=== PATIENT | male | born 1950 | race Caucasian/White ===

== ENCOUNTER → 2020-09-08 10:32 | Outpatient (CLI) | payer MEDICARE, OTHER, SELFPAY ==
[2020-09-08 15:49] LABS: Coronavirus 19 IgG Antibody Negative (Negative); Coronavirus 19 IgM Antibody Negative (Negative)
== END ==
PROVIDERS: Visit Provider Ophthalmology
DX: Z01.818 Encounter for other preprocedural examination (principal); Z03.818 Encounter for observation for suspected exposure to other biological agents ruled out; H25.11 Age-related nuclear cataract, right eye
CPT/HCPCS: 36415; 86328

== ENCOUNTER 2020-09-09 06:49 | Day surgery (SDC) | payer MEDICARE, OTHER, SELFPAY ==
[2020-09-03 10:33] VITALS: BMI 19.0
[2020-09-09 07:21] VITALS: BP 143/85; PULSE 88; RESP 16; TEMP 36.5; O2SAT 96
[2020-09-09 08:38] VITALS: BP 125/70; PULSE 65; RESP 16; O2SAT 93
[2020-09-09 08:43] VITALS: BP 111/64; PULSE 65; RESP 16; O2SAT 94
[2020-09-09 08:48] VITALS: BP 116/67; PULSE 65; RESP 16; O2SAT 94
[2020-09-09 08:53] VITALS: BP 126/70; PULSE 64; RESP 16; O2SAT 94
[2020-09-09 08:58] VITALS: BP 132/77; PULSE 65; RESP 18; TEMP 36.6; O2SAT 98
== END 2020-09-09 09:09 | disposition home or self-care (01) ==
LOC: OR 06:52
PROVIDERS: PCP Internal Medicine; Visit Provider Ophthalmology
DX: H25.813 Combined forms of age-related cataract, bilateral (principal); H02.839 Dermatochalasis of unspecified eye, unspecified eyelid; E11.9 Type 2 diabetes mellitus without complications
CPT/HCPCS: 66984; V2632

== ENCOUNTER → 2020-10-13 07:59 | Outpatient (CLI) | payer MEDICARE, OTHER, SELFPAY ==
[2020-10-13 09:27] LABS: Coronavirus 19 IgG Antibody Negative (Negative); Coronavirus 19 IgM Antibody Negative (Negative)
== END ==
PROVIDERS: Visit Provider Ophthalmology
DX: Z01.812 Encounter for preprocedural laboratory examination (principal); Z11.52 Encounter for screening for COVID-19; H25.12 Age-related nuclear cataract, left eye
CPT/HCPCS: 36415; 86328

== ENCOUNTER 2020-10-14 06:50 | Day surgery (SDC) | payer MEDICARE, OTHER, SELFPAY ==
[2020-10-14] VITALS (7 sets, daily range): BP systolic 132–154; BP diastolic 67–95; PULSE 56–68; RESP 16–22; TEMP 36.4–36.5; O2SAT 97–99; BMI 19.6
== END 2020-10-14 09:43 | disposition home or self-care (01) ==
PROVIDERS: PCP Internal Medicine; Visit Provider Ophthalmology
DX: H25.813 Combined forms of age-related cataract, bilateral (principal); H02.839 Dermatochalasis of unspecified eye, unspecified eyelid; H35.30 Unspecified macular degeneration; E11.9 Type 2 diabetes mellitus without complications
CPT/HCPCS: 66984; V2632

== ENCOUNTER → 2021-01-19 15:41 | Outpatient (CLI) | payer MEDICARE, OTHER, SELFPAY ==
--- NOTE | 2021-01-19 16:22 | ECG_ITS ---
APPROVED REPORT Exam: Resting ECG HR:78 bpm ECG Measurements Heart Rate 78 AXES MA 162 P 71 QRSd 144 QRS 223 QT 408 T 63 QTc 465 Conclusion Normal sinus rhythm Indeterminate axis Right bundle branch block Abnormal ECG Electronically signed by : Josh Garcia, 01/19/2021 19:01:07
[2021-01-19 16:33] LABS: Basophils # 0.1 K/mm3 (0-0.2); Basophils % 0.5 % (0.1-2.0); Eosinophils # 0.3 K/mm3 (0.0-0.4); Eosinophils % 1.9 % (0.1-12.0); Hematocrit 33.3 % (42.0-52.0); Hemoglobin 10.9 g/dL (14.1-18.0); Lymphocytes # 2.6 K/mm3 (0.7-4.5); Lymphocytes % 17.5 % (10-50); Mean Corpuscular HGB Conc 32.7 g/dL (31.8-35.4); Mean Corpuscular Hemoglobin 27.3 pg (27.0-31.2); Mean Corpuscular Volume 83.5 fl (80-94); Mean Platelet Volume 7.4 fl (7.4-10.4); Monocytes % 6.5 % (1.7-9.3); Neutrophils # 10.7 K/mm3 (1.8-7.8); Neutrophils % 73.5 % (37.0-80.0); Platelet Count 375 K/mm3 (142-424); Red Blood Count 3.99 M/mm3 (4.60-6.20); Red Cell Distribution Width 15.6 % (11.5-17.5); White Blood Count 14.5 K/mm3 (4.8-10.8)
[2021-01-19 17:00] LABS: Chloride 99 mmol/L (98-107); Potassium 3.6 mmoL/L (3.5-5.1); Sodium 134 mmol/L (136-145)
[2021-01-19 17:03] LABS: Anion Gap 10.6 mEq/L (5-15); Blood Urea Nitrogen 10 mg/dl (9-20); Carbon Dioxide 28 mmol/L (22.0-30.0); Estimated Glomerular Filt Rate 133 ml/min (>60); GFR (African American) 161 ML/MIN (>60); Glucose 95 mg/dl (74-100)
[2021-01-19 17:16] LABS: Coronavirus 19 IgG Antibody Negative (Negative); Coronavirus 19 IgM Antibody Negative (Negative)
== END ==
PROVIDERS: Visit Provider Otolaryngology
DX: Z01.812 Encounter for preprocedural laboratory examination (principal); Z20.822 Contact with and (suspected) exposure to COVID-19; C44.40 Unspecified malignant neoplasm of skin of scalp and neck
CPT/HCPCS: 36415; 80048; 85025; 86328; 93005

== ENCOUNTER 2021-01-21 06:08 | Day surgery (SDC) | payer MEDICARE, OTHER, SELFPAY ==
[2021-01-20 10:41] VITALS: BMI 19.6
[2021-01-21 06:19] VITALS: BP 152/78; PULSE 81; RESP 18; TEMP 36.4; O2SAT 95
--- NOTE | 2021-01-21 07:08 | HMH.ANESCL ---
[facility] Anesthesia Checklist - Patient Identification Patient Identification: Arm Band - Structural Data Admitted From: Home Planned Operative Procedure/s: Excision left neck lesion Consent for Planned Operative Procedure(s) Verified: Yes Verified Documents: Surgical Consent, History and Physical - NPO Status Verified Time NPO: 00:00 - Additional verifications Anesthesia Reactions: No Hx Blood Transfusions: No Blood Transfusion Reaction: No - Airway Assessment C-Spine Mobility Assessed: Yes TMJ Mobility Assessed: Yes Dentition: Good Dentition - Neurological Assessment Level of Consciousness: Awake, Alert - Anesthesia Plan Anesthesia Risk discussed: Yes ASA Class: II Anesthesia Type: MAC [facility] History I have reviewed the patient's past medical history: Yes Medical History: Reports:: Cancer Denies:: Diabetes Mellitus Type 1, Diabetes Mellitus Type 2, Internal Pacemaker, MRSA, Seizures *Have you ever received a pneumonia vaccine?: No *Have you received a flu vaccine this season?: No Other Medical History: Denies: Blood Transfusion Reaction Anesthesia experience/problems:: None Laterality Cases: Left: Cataract Other Surgeries: Yes: Other. No: Pacemaker Amputation: No Fractures: No - *Social History Last grade of school completed: High school graduate Smoking Status: Current every day smoker Tobacco Type: cigarettes # Packs/Day (cigarettes): 1 Alcohol Intake: never Alcohol Intake Frequency:: a few times a month Substance Use Type: denies use *Occupational Status:: retired Housing: house Household Members: none *Travel in the last 8 weeks: None Family Hx:: Hypertension
[2021-01-21 08:25] VITALS: BP 114/81; PULSE 76; RESP 16; TEMP 36.2; O2SAT 97
[2021-01-21 08:35] VITALS: BP 130/60; PULSE 76; RESP 16; TEMP 36.2; O2SAT 97
--- NOTE | 2021-01-21 08:39 | HMH.OPNOTE ---
Date of procedure: 01/21/21 Pre-op Diagnosis:: 1. Non-Healing ulcerated lesion left upper neck measuring 7 cm present for at least 6 months Post-op Diagnosis:: same Procedure performed:: Excision of nonhealing lesion left upper neck 7 cm in length with tissue rearrangement geometric plastic repair Surgeon:: Ming Adan MD LAWN CARE WORKER:: Other (Cece) Anesthesia: MAC Estimated blood loss (mL): 9 Operative findings:: same Operative note:: With the patient under some sedation the left neck was prepped and draped, the perilesional area was infiltrated with a total of 6 cc of 2% lidocaine with epi the eyes were protected with Steri-Strips.. The lesion had been present for at least 6 months and the upper part of the lesion was ulcerated. The lesion was marked out and measured 3 x 7 cm in length. The blair out was incised and the lesion was fully mobilized it was from the sternomastoid muscle and removed in entirety. It was submitted for frozen section analysis and reported as a neoplasm with clear margins. The pathologist was not entirely certain whether it was a basal cell or squamous cell but all of the margins were clear. Bleeding was less than 10 cc and stopped with suction cautery. Anterior and posterior incisions were made and a tissue rearrangement geometric plastic repair was done with interrupted 2-0 chromic and 4-0 nylon sutures. A dressing was applied. And the patient was sent to recovery in good general condition. An excellent repair was obtained. Condition: stable Disposition: PACU Complications:: none
[2021-01-21 08:45] VITALS: BP 125/66; PULSE 77; RESP 16; TEMP 36.2; O2SAT 98
--- NOTE | 2021-01-21 15:46 | HMH.ANESCL ---
[facility] Anesthesia Checklist - Patient Identification Patient Identification: Family - Structural Data Admitted From: Home Planned Operative Procedure/s: Excision left neck lesion Consent for Planned Operative Procedure(s) Verified: Yes Verified Documents: Surgical Consent - NPO Status Verified Time NPO: 00:00 - Additional verifications Anesthesia Reactions: No Hx Blood Transfusions: No Blood Transfusion Reaction: No - Airway Assessment C-Spine Mobility Assessed: Yes TMJ Mobility Assessed: Yes Dentition: Good Dentition - Neurological Assessment Level of Consciousness: Awake, Alert - Anesthesia Plan Anesthesia Risk discussed: Yes Anesthesia Plan: Verified ASA Class: II Anesthesia Type: Local & MAC [facility] History Medical History: Reports:: Cancer Denies:: Diabetes Mellitus Type 1, Diabetes Mellitus Type 2, Internal Pacemaker, MRSA, Seizures *Have you ever received a pneumonia vaccine?: No *Have you received a flu vaccine this season?: No Other Medical History: Denies: Blood Transfusion Reaction Anesthesia experience/problems:: None Laterality Cases: Left: Cataract Other Surgeries: Yes: Other. No: Pacemaker Amputation: No Fractures: No - *Social History Last grade of school completed: High school graduate Smoking Status: Current every day smoker Tobacco Type: cigarettes # Packs/Day (cigarettes): 1 Alcohol Intake: never Alcohol Intake Frequency:: a few times a month Substance Use Type: denies use *Occupational Status:: retired Housing: house Household Members: none *Travel in the last 8 weeks: None Family Hx:: Hypertension
== END 2021-01-21 08:45 | disposition home or self-care (01) ==
LOC: OR 06:09
PROVIDERS: PCP Internal Medicine; Visit Provider Otolaryngology
PROC: (CPT 14040; principal; 2021-01-21 07:00)
DX: D48.5 Neoplasm of uncertain behavior of skin (principal); L98.491 Non-pressure chronic ulcer of skin of other sites limited to breakdown of skin; Z85.9 Personal history of malignant neoplasm, unspecified; Z72.0 Tobacco use; Z82.49 Family history of ischemic heart disease and other diseases of the circulatory system
CPT/HCPCS: 14040; 88305; 88331; 96374

== ENCOUNTER → 2021-01-26 11:40 | Outpatient (CLI) | payer MEDICARE, OTHER, SELFPAY ==
--- NOTE | 2021-01-26 11:49 | CA_ITS ---
APPROVED REPORT Bilateral Upper Extremity Venous Study for DVT. Assistant To The Director: Norma RCS, RVS Indications Upper Extremity Edema: Current Smoker S/p Left neck skin lesion removal < 1 week ago Vein Imaging IJV (R): Thrombus, Non-Compressible SCV (R): Thrombus, Non-Compressible Axillary (R): Thrombus, Non-Compressible Brachial (R): Partially Compressible, Thrombus Basilic (R): Thrombus, , Partially Compressible Cephalic (R): Compressible, Phasic Radial (R): Non-Compressible, single vessel flow Ulnar (R): Partially Compressible IJV (L): Non-Compressible, Phasic SCV (L): Thrombus Axillary (L): Compressible, Phasic Brachial (L): Partially Compressible Basilic (L): Compressible, Phasic Cephalic (L): Compressible, Phasic Radial (L): Compressible, Phasic Ulnar (L): Compressible, Phasic Findings Extensive DVT of the right IJV, Subclavian, Axillary, Bracial, Basilic and a single Radial veins, displaying non compressibity and soft thrombus in motion. Left IJV is noncompressible and thrombus is visualized weithin the Left subclavian vein. Conclusion Extensive DVT of the right IJV, Subclavian, Axillary, Bracial, Basilic and a single Radial veins, displaying non compressibity and soft thrombus in motion. Left IJV is noncompressible and thrombus is visualized weithin the Left subclavian vein. Critical Notification Critical Value: Yes Physician Notified Date: 01/26/2021 Time: 12:35 Physician Name: Don Response Time: 1min Report Read Back Electronically signed by : Douglas Hutchison MD 01/26/2021 16:54:17
[2021-01-26 12:18] LABS: Basophils # 0.1 K/mm3 (0-0.2); Basophils % 0.6 % (0.1-2.0); Eosinophils # 0.2 K/mm3 (0.0-0.4); Eosinophils % 1.4 % (0.1-12.0); Hematocrit 34.3 % (42.0-52.0); Hemoglobin 10.9 g/dL (14.1-18.0); Lymphocytes # 1.9 K/mm3 (0.7-4.5); Lymphocytes % 13.4 % (10-50); Mean Corpuscular HGB Conc 31.8 g/dL (31.8-35.4); Mean Corpuscular Hemoglobin 27.3 pg (27.0-31.2); Mean Corpuscular Volume 85.8 fl (80-94); Mean Platelet Volume 7.3 fl (7.4-10.4); Monocytes # 0.7 K/mm3 (0.1-1.0); Monocytes % 4.8 % (1.7-9.3); Neutrophils # 11.4 K/mm3 (1.8-7.8); Neutrophils % 79.9 % (37.0-80.0); Platelet Count 365 K/mm3 (142-424); Red Blood Count 3.99 M/mm3 (4.60-6.20); Red Cell Distribution Width 15.9 % (11.5-17.5); White Blood Count 14.3 K/mm3 (4.8-10.8)
[2021-01-26 12:23] LABS: Chloride 102 mmol/L (98-107)
[2021-01-26 12:24] LABS: Potassium 4.1 mmoL/L (3.5-5.1); Sodium 136 mmol/L (136-145)
[2021-01-26 12:26] LABS: Blood Urea Nitrogen 7 mg/dl (9-20); Estimated Glomerular Filt Rate 133 ml/min (>60); GFR (African American) 161 ML/MIN (>60)
[2021-01-26 12:27] LABS: Anion Gap 10.1 mEq/L (5-15); Calcium 9.1 mg/dl (8.4-10.2); Carbon Dioxide 28 mmol/L (22.0-30.0); Glucose 145 mg/dl (74-100)
[2021-01-26 12:34] LABS: Activated Partial Thrombo Time 29.1 seconds (22.8-30.6); INR 0.97 (0.9-1.1); Prothrombin Time 11.5 seconds (10.1-12.5)
--- NOTE | 2021-01-26 12:38 | XR_ITS ---
PROCEDURE: XR CHEST 2V CLINICAL HISTORY: NECK AND ARM SWELLING,S/P LT NECK LESION REMOVAL COMPARISON: No exams were available for comparison FINDINGS: The there is normal heart size. A 4.6 cm mass is present in the right perihilar region possibly in the superior segment of the right lower lobe lobe suspicious for neoplasm with widening of the mediastinum and increased density in the right hilum consistent with adenopathy. The linear density noted in the right upper lobe medially and may be related to fibrotic changes. Minimal atelectasis or fibrosis noted in the left midlung. There is a faint nodular opacity in the left upper lobe overlying the 2nd rib anteriorly at 6 mm. No effusions are evident. IMPRESSION: Right perihilar mass with mediastinal and hilar adenopathy consistent with lung carcinoma with mediastinal and hilar adenopathy. CT chest with contrast suggested for further evaluation. Dictated by: Douglas Hutchison MD 01/26/2021 13:23 Douglas Hutchison MD in [place] 01/26/2021 13:23
--- NOTE | 2021-01-26 12:44 | CT_ITS ---
PROCEDURE INFORMATION: Exam: CTA Chest With Contrast Exam date and time: 01/26/2021 12:44 PM Age: 70 years old Clinical indication: Patient HX: Ulcerated lesion removed from left neck 01/21/21; Now has chest and bilat arm swelling; Additional info: Claudications in arms, ? emboli chest TECHNIQUE: Imaging protocol: Computed tomographic angiography of the chest with contrast. 3D rendering (Not supervised by radiologist): MIP and/or 3D reconstructed images were created by the technologist. Radiation optimization: All CT scans at this facility use at least one of these dose optimization techniques: automated exposure control; mA and/or kV adjustment per patient size (includes targeted exams where dose is matched to clinical indication); or iterative reconstruction. Contrast material: ISO 370; Contrast volume: 70 ml; Contrast route: INTRAVENOUS (IV); COMPARISON: CR XR CHEST 2V 01/26/2021 12:53 PM FINDINGS: Pulmonary arteries: Normal. No pulmonary emboli. Aorta: Unremarkable. No aortic aneurysm. No aortic dissection. Lungs: 9.2 x 6 by 9 cm mass in the medial aspect of the right upper lobe . The mass extends into the AP window and subcarinal region consistent lung cancer. Complex mass posterior aspect of the superior segment of the right lower lobe 3.2 x 2.2 cm. 30 Hounsfield units. Sagittal series 602, image 31 May represent metastatic disease.. 8.3 mm pulmonary nodule along the right major fissure. Series 2, image 169 . Consistent with metastatic disease . 8.5 mm pulmonary nodule in the lingula. Series 2, image 158. Findings consistent with metastatic disease . Pleural spaces: Moderate right pleural effusion .. 10.7 mm pleural based nodule in the lateral aspect of the right upper lobe consistent with metastatic disease.. Heart: Unremarkable. No cardiomegaly. No pericardial effusion. Lymph nodes: Unremarkable. No enlarged lymph nodes. Bones/joints: Unremarkable. No acute fracture. Soft tissues: Unremarkable. IMPRESSION: Findings consistent with stage IV metastatic lung carcinoma 1. 9.2 x 6 by 9 cm mass in the medial aspect of the right upper lobe . The mass extends into the AP window and subcarinal region consistent lung cancer. 2. Moderate right pleural effusion .. 3. Complex mass posterior aspect of the superior segment of the right lower lobe 3.2 x 2.2 cm. 30 Hounsfield units. Sagittal series 602, image 31 May represent metastatic disease.. 4. 8.3 mm pulmonary nodule along the right major fissure. Series 2, image 169 . Consistent with metastatic disease . 5. 10.7 mm pleural based nodule in the lateral aspect of the right upper lobe consistent with metastatic disease.. 6. 8.5 mm pulmonary nodule in the lingula. Series 2, image 158. Findings consistent with metastatic disease . Fleischner Society follow up recommendations for incidental nodules are not indicated. Follow up per the patient's medical condition.
[2021-01-26 13:28] LABS: Erythrocyte Sedimentation Rate > 140 mm/hr (0-20)
== END ==
PROVIDERS: Visit Provider Internal Medicine
DX: R22.1 Localized swelling, mass and lump, neck; M79.89 Other specified soft tissue disorders; Z98.890 Other specified postprocedural states
CPT/HCPCS: 36415; 71046; 71275; 80048; 85025; 85610; 85651; 85730; 93970; Q9967

== ENCOUNTER 2021-01-30 12:25 | Emergency (ER) | payer MEDICARE, OTHER, SELFPAY ==
[2021-01-30 12:26] VITALS: BP 178/97; PULSE 85; RESP 20; TEMP 36.4; O2SAT 99; BMI 18.7
--- NOTE | 2021-01-30 12:51 | HMH.EDGENADL ---
ED Disposition Clinical Impression: Lung cancer Qualifiers: Laterality: unspecified laterality Lung location: unspecified part of lung Qualified Code(s): C34.90 - Malignant neoplasm of unspecified part of unspecified bronchus or lung DVT of upper extremity (deep vein thrombosis) Qualifiers: Affected thrombotic vein of extremity: unspecified vein of extremity Chronicity: acute Laterality: unspecified laterality Qualified Code(s): I82.629 - Acute embolism and thrombosis of deep veins of unspecified upper extremity Low back pain Qualifiers: Chronicity: acute Back pain laterality: bilateral Sciatica presence: without sciatica Qualified Code(s): M54.5 - Low back pain Pneumothorax Qualifiers: Pneumothorax type: spontaneous, secondary Qualified Code(s): J93.12 - Secondary spontaneous pneumothorax Disposition: Home, Self-Care Condition on Discharge: Fair Additional Instructions: Keep appointment at [facility] on Tuesday. [place] as needed for pain. Return to emergency department if chest pain or shortness of breath, preferably [facility], however if in any distress go to the emergency room department closest to you. Additional instructions for CONTROLLED SUBSTANCES: You have been prescribed a medication that is a controlled substance. Controlled substances include pain medications known as opiates and sedative nerve medications known as benzodiazepines. Tramadol, fioricet, and gabapentin are also controlled substances. Some common opiates include: Codeine (such as Tylenol #3) Hydrocodone (Vicodin, Lortab, Lorcet, [place]) Oxycodone (Percocet, Percodan, Oxycodone, Oxy IR) Some common benzodiazepines include: Diazepam (Valium) Lorazepam (Ativan) Alprazolam (Xanax) Clonazepam (Klonopin) Oxazepam (Serax) All of these controlled substances are highly addictive and frequently abused. Misuse can and frequently does lead to addiction as well as overdose and . Medication should be stored in a locked cabinet or other secure storage unit. Do not store the medication in a motor vehicle. Short term supplies, 3 days or less, are prescribed because of the highly addictive nature of the medication. Any of the controlled substance medication NOT taken should be disposed of properly and NOT SAVED. The recommended method of disposing of unused medications is: Place the medicines in a sealable plastic bag. If the medicine is a solid, crush it or add water to dissolve it. Add something undesirable (cat litter, coffee grounds, etc.) Dispose of sealed bag in household trash Do not flush or pour unused medicines down a sink or drain. Controlled substances should not be shared, given away or sold. Because of the addictive nature and frequent abuse, these medications are sometimes stolen. These medications should be kept in a safe place where they cannot be stolen. Do not keep them in your car or purse. Lost or stolen prescriptions for controlled substances WILL NOT BE REFILLED in this emergency department, regardless of whether a police report was filed. Prescriptions: Hydrocod/Acet 5/325 mg [[place] 5/325mg tablet] 1 tab PO Q6HP PRN #10 tab PRN Reason: Pain Transmission Status: Received by [id number] Referrals: Armin Ochoa [Primary Care Provider] - - Critical Care Critical Care Time: No Attestation: On 01/30/21, the high probability of a clinically significant, sudden or life threatening deterioration of the following system(s) required my full and direct attention, intervention and personal management. The time I documented below is in addition to time spent performing reported procedures but includes the following listed in this critical care notation. Medical Decision Making - Medical Records Medical records reviewed: Yes: I reviewed the patient's medical records. MR Comment: Reviewed recent chest x-ray, CTA of chest, and Doppler bilateral upper extremity. See CTA chest and
[2021-01-30 12:55] LABS: Basophils # 0.1 K/mm3 (0-0.2); Basophils % 0.3 % (0.1-2.0); Eosinophils # 0.1 K/mm3 (0.0-0.4); Eosinophils % 0.6 % (0.1-12.0); Hematocrit 35.1 % (42.0-52.0); Hemoglobin 11.3 g/dL (14.1-18.0); Lymphocytes # 2.8 K/mm3 (0.7-4.5); Lymphocytes % 15.5 % (10-50); Mean Corpuscular HGB Conc 32.2 g/dL (31.8-35.4); Mean Corpuscular Hemoglobin 27.1 pg (27.0-31.2); Mean Corpuscular Volume 84.2 fl (80-94); Mean Platelet Volume 7.6 fl (7.4-10.4); Monocytes # 0.8 K/mm3 (0.1-1.0); Monocytes % 4.4 % (1.7-9.3); Neutrophils # 14.4 K/mm3 (1.8-7.8); Neutrophils % 79.2 % (37.0-80.0); Platelet Count 465 K/mm3 (142-424); Red Blood Count 4.17 M/mm3 (4.60-6.20); Red Cell Distribution Width 15.6 % (11.5-17.5); White Blood Count 18.2 K/mm3 (4.8-10.8)
--- NOTE | 2021-01-30 12:55 | PC.NURSE ---
Urine specimen requested from pt. Patient states he just went to the bathroom.
[2021-01-30 12:56] LABS: MANUAL DIFFERENTIAL MANUAL DIFFERENTIAL (MANUAL DIFF)
[2021-01-30 13:01] LABS: Hypochromasia 1+; Lymphocytes % 20 % (10-50); Monocytes % 4 % (2-9); Neutrophils % 76 % (42-76); Platelet Estimate Normal; Total Cells Counted 100
[2021-01-30 13:03] LABS: Chloride 100 mmol/L (98-107); Potassium 3.3 mmoL/L (3.5-5.1); Sodium 135 mmol/L (136-145)
[2021-01-30 13:06] LABS: Alanine Aminotransferase 15 U/L (12-78); Albumin Level 3.8 g/dl (3.5-5.0); Albumin/Globulin Ratio 1.1 (1.1-1.8); Alkaline Phosphatase 96 U/L (38-126); Anion Gap 12.3 mEq/L (5-15); Aspartate Amino Transferase 19 U/L (17-59); Bilirubin,Total 0.3 mg/dl (0.2-1.3); Blood Urea Nitrogen 8 mg/dl (9-20); Calcium 9.9 mg/dl (8.4-10.2); Carbon Dioxide 26 mmol/L (22.0-30.0); Creatinine Clearance Estimated 60 mL/min (50-200); Estimated Glomerular Filt Rate 133 ml/min (>60); GFR (African American) 161 ML/MIN (>60); Globulin 3.6 g/dL (1.3-3.2); Glucose 139 mg/dl (74-100); Total Protein,Serum 7.4 g/dl (6.3-8.2)
--- NOTE | 2021-01-30 13:12 | CT_ITS ---
PROCEDURE: CT ABDOMEN PELVIS W CON CLINICAL INDICATION: back pain, has lung cancer COMPARISON: CT CT ANGIO CHEST from 01/26/2021 TECHNIQUE: IV Contrast: 75ML Isovue 370 Oral Contrast None Axial images obtained with sagittal and coronal reformats. All CT scans at the facility use one or more dose reduction, viz: automated exposure control, ma/kV adjustment per patient size (including targeted exams where dose is matched to indication, i.e. head), or iterative reconstruction technique. FINDINGS: LOWER THORAX: There is a small right pleural effusion which is slightly increased in size compared to the previous exam. An 8 mm nodule and a 7 mm nodules present in the right lower lobe laterally and posteriorly and may be due to intrapulmonary metastasis. There is a small right-sided pneumothorax. Has the patient had a recent biopsy for thoracentesis? Subpleural atelectatic changes are present along the visceral pleura anteriorly at the edge of the pneumothorax. The pneumothorax measures eleven mm in AP dimension.. There is a 4 mm noncalcified nodule in the left lower lobe laterally and also 1 medially. Coronary artery calcifications are present. There is mild thickening of the pericardium anteriorly at 8 mm consistent with small pericardial effusion ABDOMEN & PELVIS: A small hypodensity is present in the left hepatic lobe medially measuring 4 mm possibly due to a cyst too small to categorize. The liver is otherwise unremarkable. The gallbladder, spleen, and pancreas have an unremarkable appearance. There are bilateral renal cysts the largest in the upper pole on the left at 4 cm. Mildly prominent lymph nodes are present in the retroperitoneum. No evidence of aortic aneurysm. There is a moderate amount of retained colonic feces. No evidence of appendicitis. There is severe colonic diverticulosis greatest in the sigmoid region. No evidence of diverticulitis. No free air apparent. No intestinal obstruction. No acute bony findings. Please see lumbar spine report for description of the lumbar spine. IMPRESSION: 1. Small right-sided pneumothorax. Small right-sided pleural effusion. 2. Small bilateral pulmonary nodules possibly due to intrapulmonary metastasis or granulomas. 3. Small pericardial effusion. 4. Colonic diverticulosis. No evidence of diverticulitis. Mild amount of retained colonic feces 5. Retroperitoneal adenopathy Dictated by: Douglas Hutchison MD 01/30/2021 14:19 Douglas Hutchison MD in [place] 01/30/2021 14:19
--- NOTE | 2021-01-30 13:13 | CT_ITS ---
PROCEDURE: CT LUMBAR SPINE W CON CLINICAL HISTORY: back pain, has lung cancer COMPARISON: No exams were available for comparison TECHNIQUE: Axial images obtained with sagittal and coronal reformats. All CT scans at the facility use one or more dose reduction, viz: automated exposure control, ma/kV adjustment per patient size (including targeted exams where dose is matched to indication, i.e. head), or iterative reconstruction technique. FINDINGS: There is normal alignment. No acute fracture or dislocation is evident. No lytic or blastic changes. L1-L2: Prominent anterior osteophytes with mild decrease in the disc space consistent with mild degenerative disc disease. 2 mm retrolisthesis L1. L2-L3: Unremarkable. L3-L4: Mild facet hypertrophic changes. L4-5: Degenerative disc disease with minimal bulging disc. L5-S1: Degenerative disc disease. There is endplate and facet hypertrophic changes with moderate bilateral foraminal narrowing. There is ankylosis of the right SI joint. There is mild retroperitoneal adenopathy with multiple small nodes apparent measuring up to 1.7 x 1.2 cm. Right-sided pleural effusion is present. IMPRESSION: 1. No acute finding of the lumbar spine. 2. Degenerative changes as described above. 3. Mild retroperitoneal adenopathy Dictated by: Douglas Hutchison MD 01/30/2021 14:26 Douglas Hutchison MD in [place] 01/30/2021 14:26
--- NOTE | 2021-01-30 15:08 | PC.NURSE ---
MD at bedside updating patient on results and plan of care.
--- NOTE | 2021-01-30 15:10 | PC.NURSE ---
Landscape Crew Leader Shayla Gomes having Dr Recinos (tenon machine operator general surgery MD) paged.
--- NOTE | 2021-01-30 15:13 | PC.NURSE ---
Dr baez is talking to Dr Woods about pt.
--- NOTE | 2021-01-30 15:17 | PC.NURSE ---
ETELVINA HOLBROOK speaking with Dr. Woods
--- NOTE | 2021-01-30 15:23 | PC.NURSE ---
MARILEE Mackenzie calling Dr smith office per MD Singh request.
--- NOTE | 2021-01-30 15:24 | PC.NURSE ---
speaking with Don @ this time.
--- NOTE | 2021-01-30 15:29 | PC.NURSE ---
Dr Singh talking to dr Ramirez about pt, just finished talking to Dr Ochoa about patient
--- NOTE | 2021-01-30 15:45 | XR_ITS ---
PROCEDURE: XR CHEST 2V CLINICAL HISTORY: PTX COMPARISON: CT CT ANGIO CHEST from 01/26/2021 CR XR CHEST 2V from 01/26/2021 FINDINGS: There is a small right apical pneumothorax measuring 1.8 cm in thickness. No evidence of tension. Right hilar mass with adenopathy once again noted. Mass is present in the superior segment of the right lower lobe at 4.6 cm unchanged. There is a small right pleural effusion. The left lung is clear. Normal heart size. IMPRESSION: No change right hilar mass and right lower lobe mass consistent with neoplasm. Small right apical pneumothorax without tension. Dictated by: Douglas Hutchison MD 01/30/2021 16:31 Douglas Hutchison MD in [place] 01/30/2021 16:31
[2021-01-30 16:43] VITALS: BP 185/107; PULSE 70; RESP 16; TEMP 36.8; O2SAT 97
== END 2021-01-30 16:50 | disposition home or self-care (01) ==
PROVIDERS: Emergency Provider Emergency Medicine; PCP Internal Medicine
DX: C34.90 Malignant neoplasm of unspecified part of unspecified bronchus or lung (principal); I82.629 Acute embolism and thrombosis of deep veins of unspecified upper extremity; J93.12 Secondary spontaneous pneumothorax
CPT/HCPCS: 71046; 72132; 74177; 80053; 85007; 85025; 96365; 99282; Q9967

== ENCOUNTER → 2021-03-27 13:44 | Outpatient (CLI) | payer MEDICARE, OTHER, SELFPAY ==
--- NOTE | 2021-03-27 13:48 | CT_ITS ---
PROCEDURE: CT CHEST W CON CLINCAL INDICATION: NON-SMALL CELL LUNG CANCER, UNSPECIFIED LATERALITLY COMPARISON: CT CT ANGIO CHEST from 01/26/[address] ABDOMEN PELVIS W CON from 01/30/2021 TECHNIQUE: IV Contrast: 75ml Isovue 370 Axial images obtained with sagittal and coronal reformats. All CT scans at the facility use one or more dose reduction, viz: automated exposure control, ma/kV adjustment per patient size (including targeted exams where dose is matched to indication, i.e. head), or iterative reconstruction technique. FINDINGS: Vascular stents have been inserted into the medial aspect of the left brachiocephalic vein, right brachiocephalic vein, and superior vena cava. The left brachiocephalic vein is patent. The superior vena cava appears patent. The right brachiocephalic vein was not opacified with contrast as the IV contrast injection was in the left upper extremity. Pericardium is thickened measuring up to 9 mm consistent with pericardial effusion Right upper lobe mass with extension into the right hilum and mediastinum once again noted but is smaller measuring 6.9 x 5 by 7.3 Cm previously a 0.5 x 7 x 8.9 cm. There is extension into the mediastinum just past midline. There is narrowing of the right upper lobe pulmonary artery. No evidence pulmonary artery occlusion at the segmental level. There is a small node in the left aspect of the mediastinum which measures 9 mm. Postobstructive changes are present in the right upper lobe medially. The trachea is slightly deviated toward the left. Previously noted narrowing of the distal aspect of the trachea has shown improvement. Centrilobular emphysematous changes are present. Small opacity is present in the right upper lobe laterally measuring 8 mm with some mild cystic change at this area not significantly changed. Previously noted mass in the right lower lobe now demonstrates a cavitated appearance. The lesion measures 2.8 x 1.7 cm previously 4.4 by 2.8 cm. A 6 mm nodules present along the right major fissure previously 7 mm. There are numerous new nodules in both lower lobes. One previously described nodule in the left lower lobe has increased in size measuring 11 mm and previously measuring 8 mm. Right-sided pleural effusion has resolved. Atelectatic or fibrotic changes are present in the left upper lobe. Images of the upper abdomen show 2 small hypodensities in the left hepatic lobe at 3 and 5 mm which are nonspecific. Left-sided renal cysts are noted. The adrenal glands are unremarkable. No lytic or blastic changes apparent IMPRESSION: 1. There has been overall mixed response. The large right upper lobe mass with extension into the mediastinum has decreased in size. 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 The largest mass in the right lower lobe has decreased in size and is now demonstrating a cavitating appearance. Numerous other pulmonary nodules are now present consistent with pulmonary metastasis some of which are larger and some which are new compared to the previous exam. 2. Right pleural effusion has resolved. 3. Pericardial effusion has slightly increased 4. Two small indeterminate hypodensities of the liver 5. Interval placement bilateral brachiocephalic stents and superior vena cava stent. Dictated by: Douglas Hutchison MD 03/30/2021 07:43 Douglas Hutchison MD in [place] 03/30/2021 07:43
== END ==
PROVIDERS: PCP Internal Medicine; Referring Provider Internal Medicine Medical Oncology; Visit Provider Internal Medicine Medical Oncology
DX: C34.90 Malignant neoplasm of unspecified part of unspecified bronchus or lung (principal)
CPT/HCPCS: 71260; Q9967

== ENCOUNTER → 2021-04-24 12:46 | Outpatient (CLI) | payer MEDICARE, OTHER, SELFPAY ==
--- NOTE | 2021-04-24 12:48 | CT_ITS ---
PROCEDURE: CT CHEST W CON CLINCAL INDICATION: SQUAMOUS CELL CARCINOMA OF RT LUNG COMPARISON: CT CT CHEST W CON from 03/27/2021 TECHNIQUE: IV Contrast: 75ml Isovue 370 CT chest with axial, coronal, and sagittal multiplanar reformations, performed with contrast. Dose modulation, automated exposure control, and/or iterative reconstruction were used for dose reduction. FINDINGS: LUNGS:Extensive centrilobular emphysematous changes are noted bilaterally. The right suprahilar mass lesion is again noted measuring 4.3 times 5.8 centimeters, demonstrates marginal improvement compared to the prior study. The mass lesion is again noted to encase the superior vena cava and abuts the right main pulmonary artery. Soft tissue density extends anteriorly into the precarinal region with mild tracheal displacement to the left. The mass lesion is noted extending into the right perihilar and peribronchial region, demonstrates heterogeneous echogenicity. No other suspicious lymphadenopathy. Multiple lung nodules are noted. Previously noted cavitating lesion in right lower lobe is again noted, demonstrates no significant interval change. Soft tissue density nodules in the left upper and lower lobes measuring up to 1.3 centimeters, demonstrate no significant interval change compared to prior study. The central tracheobronchial tree is otherwise patent. The heart size is normal without pericardial effusions. Minor atherosclerotic vascular calcification of the thoracic aorta and coronary arteries are noted. SVC stent is noted. Focal hypodense lesion is noted in the left kidney measuring 4.3 times 4.5 centimeters,, likely represents a cyst. Otherwise the visualized upper abdominal solid organs are unremarkable within the limitations of the study. Multilevel degenerative changes of the visualized thoracic spine. IMPRESSION: Right suprahilar mass lesion demonstrates marginal decrease in size compared to the prior study. Continued close follow-up is recommended. Multiple lung nodules measuring up to 1.3 centimeters, demonstrate no significant interval change compared to prior study. Dictated by: Mela Bhatt 04/24/2021 15:27 Mela Bhatt in OV 04/24/2021 15:27
[2021-04-24 13:34] LABS: Blood Urea Nitrogen 9 mg/dl (9-20); Estimated Glomerular Filt Rate 111 ml/min (>60); GFR (African American) 135 ML/MIN (>60)
== END ==
PROVIDERS: PCP Internal Medicine; Visit Provider Internal Medicine Medical Oncology
DX: C34.91 Malignant neoplasm of unspecified part of right bronchus or lung (principal)
CPT/HCPCS: 36415; 71260; 82565; 84520; Q9967

== ENCOUNTER → 2021-11-30 11:21 | Outpatient (CLI) | payer MEDICARE, OTHER, SELFPAY ==
[2021-11-30 12:54] LABS: Basophils # 0.1 K/mm3 (0-0.2); Basophils % 0.9 % (0.1-2.0); Eosinophils # 0.2 K/mm3 (0.0-0.4); Eosinophils % 3.8 % (0.1-12.0); Hematocrit 36.5 % (42.0-52.0); Hemoglobin 11.9 g/dL (14.1-18.0); Lymphocytes # 0.6 K/mm3 (0.7-4.5); Lymphocytes % 10.2 % (10-50); Mean Corpuscular HGB Conc 32.7 g/dL (31.8-35.4); Mean Corpuscular Hemoglobin 28.9 pg (27.0-31.2); Mean Corpuscular Volume 88.5 fl (80-94); Mean Platelet Volume 9.3 fl (7.4-10.4); Monocytes # 0.4 K/mm3 (0.1-1.0); Monocytes % 6.4 % (1.7-9.3); Neutrophils % 78.8 % (37.0-80.0); Platelet Count 193 K/mm3 (142-424); Red Blood Count 4.13 M/mm3 (4.60-6.20); Red Cell Distribution Width 18.5 % (11.5-17.5); White Blood Count 6.3 K/mm3 (4.8-10.8)
[2021-11-30 14:31] LABS: Strep Scrn Group A (Rapid) Negative (Negative)
== END ==
PROVIDERS: PCP Internal Medicine; Visit Provider Internal Medicine
DX: Z20.822 Contact with and (suspected) exposure to COVID-19 (principal); J02.9 Acute pharyngitis, unspecified
CPT/HCPCS: 36415; 85025; 87430; C9803; U0003; U0005

== ENCOUNTER 2021-12-16 16:54 | Emergency (ER) | payer MEDICARE, OTHER, SELFPAY ==
[2021-12-16 16:55] VITALS: BP 195/113; PULSE 69; RESP 20; TEMP 36.6; O2SAT 98; BMI 18.6
--- NOTE | 2021-12-16 18:22 | HMH.EDGENADL ---
ED Disposition Condition on Discharge: Fair - Critical Care Critical Care Time: No <SamSylvain avery - Last Filed: 12/16/21 20:15> <Anurag Daniels - Last Filed: 12/16/21 21:29> Clinical Impression: Abdominal pain Qualifiers: Abdominal location: right lower quadrant Qualified Code(s): R10.31 - Right lower quadrant pain Rectus sheath hematoma Qualifiers: Encounter type: initial encounter Qualified Code(s): S30.1XXA - Contusion of abdominal wall, initial encounter Disposition: Home, Self-Care Instructions: DI for Hematoma (Bruise) Additional Instructions: stop eliquis and call oncologist in am - ice janice to hematoma Referrals: Armin Ochoa [Primary Care Provider] - Attestation: On 12/16/21, the high probability of a clinically significant, sudden or life threatening deterioration of the following system(s) required my full and direct attention, intervention and personal management. The time I documented below is in addition to time spent performing reported procedures but includes the following listed in this critical care notation. Medical Decision Making - Anthony Inquiry Pt receiving controlled substance: No - Lab Data Result diagrams: 12/16/21 18:25 12/16/21 18:25 <Sylvain Singh - Last Filed: 12/16/21 20:15> - Lab Data Lab results reviewed: Yes: I reviewed the patient's lab results. Result diagrams: 12/16/21 18:25 12/16/21 18:25 - CT Data CT Scan: Abdomen, Pelvis Time Received: 21:[address] Reviewed: Yes: I have viewed the radiologist's interpretation Preliminary Findings: Abnormal (see report ) - Physician Consults Physician Consulted: jean Reason -: Pt condition <Anurag Daniels - Last Filed: 12/16/21 21:29> Vital Signs: 12/16/21 16:55 Temperature 98 F Temperature Source Oral Pulse Rate [Right Radial] 69 Respiratory Rate 20 Blood Pressure [Right Arm] 195/113 H Blood Pressure Mean [Right Arm] 140 Blood Pressure Source [Right Arm] Automatic Cuff Blood Pressure Position [Right Arm] Sitting 02 Sat by Pulse Oximetry 98 Oxygen Delivery Method Room Air - Lab Data Lab Results 12/16/21 18:25: WBC 9.6, RBC 3.87 L, Hgb 11.3 L, Hct 34.9 L, MCV 90.3, MCH 29.2, MCHC 32.4, RDW 19.7 H, Plt Count 263, MPV 9.0, Neut % (Auto) 90.7 H, Lymph % (Auto) 3.8 L, [place] % (Auto) 4.3, Eos % (Auto) 1.0, Baso % (Auto) 0.2, Neut # (Auto) 8.7 H, Lymph # (Auto) 0.4 L, [place] # (Auto) 0.4, Eos # (Auto) 0.1, Baso # (Auto) 0.0, Total Counted 100, Neutrophils % (Manual) 91 H, Lymphocytes % (Manual) 7 L, Monocytes % (Manual) 2, Platelet Estimate Normal, Anisocytosis 2+ 12/16/21 18:25: Sodium 134 L, Potassium 4.1, Chloride 108 H, Carbon Dioxide 22, Anion Gap 8.1, BUN 15, Creatinine 0.50 L, Estimated Creat Clear 59, Estimated GFR 163, Est GFR ( Amer) 198, Glucose 102 H, Calcium 7.7 L, Total Bilirubin 0.3, AST 32, ALT 26, Alkaline Phosphatase 73, Total Protein 5.9 L, Albumin 3.2 L, Globulin 2.7, Albumin/Globulin Ratio 1.2, Lipase 65 Orders (Tests/Meds): ED MEDICATIONS Generic Name Dose Route Start Last Admin Trade Name Freq PRN Reason Stop Dose Admin Sodium Chloride 10 ml 12/16/21 17:25 Sodium Chloride 0.9% 10ml Flush Syringe IV 01/15/22 17:24 NEEDED PRN Maintain IV Site ORDERS Category Date Time Status Urinalysis and Microscopic Stat Lab 12/16/21 17:25 Ordered Medical Decision Narrative: 6:40 PM: Currently declines any pain medication. 7:54 PM: The patient's IV infiltrated. After multiple unsuccessful IV attempts by the nursing staff he has refused any further IV attempts. I advised him that a CT scan of the abdomen pelvis performed without contrast would not be as good as a scan performed with IV contrast. He understands that and still refuses further IV attempts at this time. If something is discovered on the scan that requires further treatment such as intravenous medications or surgery he would need another IV established. I have advised him of this and he
[2021-12-16 18:36] LABS: Basophils % 0.2 % (0.1-2.0); Eosinophils # 0.1 K/mm3 (0.0-0.4); Hematocrit 34.9 % (42.0-52.0); Hemoglobin 11.3 g/dL (14.1-18.0); Lymphocytes # 0.4 K/mm3 (0.7-4.5); Lymphocytes % 3.8 % (10-50); Mean Corpuscular HGB Conc 32.4 g/dL (31.8-35.4); Mean Corpuscular Hemoglobin 29.2 pg (27.0-31.2); Mean Corpuscular Volume 90.3 fl (80-94); Monocytes # 0.4 K/mm3 (0.1-1.0); Monocytes % 4.3 % (1.7-9.3); Neutrophils # 8.7 K/mm3 (1.8-7.8); Neutrophils % 90.7 % (37.0-80.0); Platelet Count 263 K/mm3 (142-424); Red Blood Count 3.87 M/mm3 (4.60-6.20); Red Cell Distribution Width 19.7 % (11.5-17.5); White Blood Count 9.6 K/mm3 (4.8-10.8)
[2021-12-16 18:37] LABS: MANUAL DIFFERENTIAL MANUAL DIFFERENTIAL (MANUAL DIFF)
--- NOTE | 2021-12-16 18:37 | PC.NURSE ---
ED MD at
[2021-12-16 18:54] LABS: Chloride 108 mmol/L (98-107); Potassium 4.1 mmoL/L (3.5-5.1); Sodium 134 mmol/L (136-145)
[2021-12-16 18:57] LABS: Alanine Aminotransferase 26 U/L (12-78); Albumin Level 3.2 g/dl (3.5-5.0); Albumin/Globulin Ratio 1.2 (1.1-1.8); Alkaline Phosphatase 73 U/L (38-126); Anion Gap 8.1 mEq/L (5-15); Aspartate Amino Transferase 32 U/L (17-59); Bilirubin,Total 0.3 mg/dl (0.2-1.3); Blood Urea Nitrogen 15 mg/dl (9-20); Calcium 7.7 mg/dl (8.4-10.2); Carbon Dioxide 22 mmol/L (22.0-30.0); Creatinine Clearance Estimated 59 mL/min (50-200); Estimated Glomerular Filt Rate 163 ml/min (>60); GFR (African American) 198 ML/MIN (>60); Globulin 2.7 g/dL (1.3-3.2); Glucose 102 mg/dl (74-100); Lipase 65 U/L (23-300); Total Protein,Serum 5.9 g/dl (6.3-8.2)
--- NOTE | 2021-12-16 19:39 | HMH.ITSTN ---
WAITING ON NEW IV, THE ONE THAT WAS IN HIS HAND IS NOT GOOD FOR THE CT EXAM
--- NOTE | 2021-12-16 19:50 | CT_ITS ---
PROCEDURE INFORMATION: Exam: CT Abdomen And Pelvis Without Contrast Exam date and time: 12/16/2021 7:50 PM Age: 71 years old Clinical indication: Abdominal pain; Additional info: Abd pain TECHNIQUE: Imaging protocol: Computed tomography of the abdomen and pelvis without contrast. Radiation optimization: All CT scans at this facility use at least one of these dose optimization techniques: automated exposure control; mA and/or kV adjustment per patient size (includes targeted exams where dose is matched to clinical indication); or iterative reconstruction. COMPARISON: CT ABDOMEN PELVIS W CON 01/30/2021 1:41 PM FINDINGS: Tubes, catheters and devices: None noted. Lungs: Multiple pulmonary nodules, suspect metastasis. Increased size and number since 01/30/2021. Heart: No significant coronary calcifications. No cardiomegaly. No significant pericardial effusion. Liver: Normal. No mass. Gallbladder and bile ducts: Normal. No calcified stones. No ductal dilation. Pancreas: Normal. No ductal dilation. Spleen: Normal. No splenomegaly. Adrenal glands: Normal. No mass. Kidneys and ureters: Simple left upper pole renal cyst. Multiple smaller cysts bilaterally. No hydronephrosis. Stomach and bowel: Unremarkable. No obstruction. No mucosal thickening. Appendix: No evidence of appendicitis. Intraperitoneal space: Unremarkable. No free air. No significant fluid collection. Retroperitoneal space: No significant retroperitoneal inflammatory changes are noted. Vasculature: Unremarkable. No abdominal aortic aneurysm. Lymph nodes: Unremarkable. No enlarged lymph nodes. Urinary bladder: Unremarkable as visualized. Reproductive: Unremarkable as visualized. Bones/joints: Unremarkable. No acute fracture. Soft tissues: 5 x 10 x 7 cm right rectus sheath hematoma. IMPRESSION: 1. Multiple pulmonary nodules, concern for pulmonary metastatic disease. Correlate clinically. 2. 5 x 10 x 7 cm right rectus sheath hematoma. COMMENTS: Consistent with the [employer]'s Incidental Findings Committee white paper (J Am Nancy Radiol 2018): Any incidental renal lesion less than 1 cm or classified as too small to characterize, or any incidental cystic renal lesion characterized as simple-appearing, is likely benign. No follow-up imaging is recommended for these lesions per consensus recommendations based on imaging criteria.
[2021-12-16 20:23] LABS: Anisocytosis 2+; Lymphocytes % 7 % (10-50); Monocytes % 2 % (2-9); Neutrophils % 91 % (42-76); Platelet Estimate Normal; Total Cells Counted 100
--- NOTE | 2021-12-16 21:11 | PC.NURSE ---
speaking with at this time
[2021-12-16 21:44] VITALS: BP 172/99; PULSE 62; RESP 16; TEMP 36.6; O2SAT 97
== END 2021-12-16 21:48 | disposition home or self-care (01) ==
PROVIDERS: Emergency Provider Emergency Medicine; PCP Internal Medicine
DX: R10.31 Right lower quadrant pain (principal); S30.1XXA Contusion of abdominal wall, initial encounter; C34.90 Malignant neoplasm of unspecified part of unspecified bronchus or lung; F17.210 Nicotine dependence, cigarettes, uncomplicated
CPT/HCPCS: 74176; 80053; 83690; 85007; 85025; 99284

== ENCOUNTER 2022-01-16 10:21 | Emergency (ER) | payer MEDICARE, OTHER, SELFPAY ==
[2022-01-16 10:25] VITALS: BP 109/62; PULSE 101; RESP 18; TEMP 36.3; O2SAT 98; BMI 19.0
--- NOTE | 2022-01-16 10:35 | HMH.EDUTC ---
[facility] [place] Disposition Clinical Impression: Sinusitis, Lung cancer, Thrush Disposition: Home, Self-Care Condition on Discharge: Good Instructions: DI for Sinusitis Additional Instructions: Follow up with Dr Ochoa next week Take all medicine as prescribed until gone Prescriptions: Fluticasone Propionate [Flonase 50mcg nasal spray 16gm] 1 spr NS BID 14 Days #1 ml Transmission Status: Pending to [facility] guaiFENesin [Mucinex 600mg tablet] 600 mg PO BID 10 Days #20 tab Transmission Status: Pending to [facility] Nystatin [Nystatin Susp 500,000 Units/5mL Udc] 10 ml PO QID 10 Days #400 ml Transmission Status: Pending to [facility] Cefdinir [Omnicef 300mg Capsule] 300 mg PO BID #20 cap Transmission Status: Pending to [facility] Referrals: Armin Ochoa [Primary Care Provider] - Time of Disposition: 11:20 Medical Decision Making - Anthony Inquiry Pt receiving controlled substance: No Vital Signs: 01/16/22 10:25 Temperature 97.4 F L Temperature Source Oral Pulse Rate [Right Brachial] 101 H Respiratory Rate 18 Blood Pressure [Right Arm] 109/62 L Blood Pressure Mean [Right Arm] 77 Blood Pressure Source [Right Arm] Automatic Cuff Blood Pressure Position [Right Arm] Sitting 02 Sat by Pulse Oximetry 98 Oxygen Delivery Method Room Air - Lab Data Lab results reviewed: Yes: I reviewed the patient's lab results. Orders (Tests/Meds): ED MEDICATIONS Discontinued Medications Generic Name Dose Route Start Last Admin Trade Name Jayjay PRN Reason Stop Dose Admin Ceftriaxone Sodium 1 gm 01/16/22 10:52 01/16/22 11:00 Ceftriaxone 1gm Vial IM 01/16/22 10:53 1 gm ONCE ONE Administration Lidocaine HCl 0 ml 01/16/22 10:52 01/16/22 11:00 Lidocaine 1% 5ml Pf Vial IM 01/16/22 10:53 2 ml ONCE ONE Administration Methylprednisolone Acetate 80 mg 01/16/22 10:52 01/16/22 11:00 Methylprednisolone Acetate 80mg/Ml Vial IM 01/16/22 10:53 80 mg ONCE ONE Administration ORDERS Category Date Time Status Rapid Strep Scrn Group A [Strep Scrn Group A (Rapid)] Lab 01/16/22 11:10 Received Stat [facility] [place] HPI - General Stated complaint: sore throat, left ear ache Time Seen by Provider: 01/16/22 10:36 - History of Present Illness Provider Complaint: Patient states he is not feeling well. He has lung cancer. Started chemo about a year ago. Had last chemo 5 days ago. States his ears hurts, his sinuses are full of mucous, his throat hurts, he is choking on phlegm. He can't hear out of his right ear. He is coughing. No fever. No vomiting or diarrhea. States he does not use oxygen at home. He seems dyspneic with speech but states he does not feel short of breath. States he is tired of feeling bad and wants something to dry up the mucous in his head. Onset (ago): day(s) (5) Location: head Relieving factors: none Exacerbating factors: none Associated symptoms: cough, malaise Treatments prior to arrival: none - Related Data Home Medications Medication Instructions Recorded Confirmed Apixaban [Eliquis 5mg Tablet] 10 mg PO BID 01/30/21 12/16/21 dexAMETHasone [Dexamethasone] 4 mg PO TID 01/30/21 12/16/21 gabapentin 300 mg capsule 300 mg PO TID cap 05/28/21 12/16/21 Previous Rx's Medication Instructions Recorded Cefdinir [Omnicef 300mg Capsule] 300 mg PO BID #20 cap 01/16/22 Fluticasone Propionate [Flonase 1 spr NS BID 14 Days #1 ml 01/16/22 50mcg nasal spray 16gm] Nystatin [Nystatin Susp 500,000 10 ml PO QID 10 Days #400 ml 01/16/22 Units/5mL Udc] guaiFENesin [Mucinex 600mg tablet] 600 mg PO BID 10 Days #20 tab 01/16/22 Allergies Allergy/AdvReac Type Severity Reaction Status Date / Time No Known Allergies Allergy Verified 09/03/21 14:31 [facility] History - Hepatitis A Screen Attestation statement:: This patient has been screened for Hepatitis A risk factors. I have reviewed the patient's past medical history: Yes Me
[2022-01-16 11:21] LABS: Strep Scrn Group A (Rapid) Negative (Negative)
[2022-01-16 11:22] VITALS: BP 109/62; PULSE 101; RESP 18; TEMP 36.3; O2SAT 98
== END 2022-01-16 11:24 | disposition home or self-care (01) ==
PROVIDERS: Emergency Provider Physician Assistant; PCP Internal Medicine
DX: J01.00 Acute maxillary sinusitis, unspecified (principal); C34.90 Malignant neoplasm of unspecified part of unspecified bronchus or lung; B37.0 Candidal stomatitis; F17.210 Nicotine dependence, cigarettes, uncomplicated
CPT/HCPCS: 87430; 96372; 99213; G0463; J0696; J1040

== ENCOUNTER 2022-02-18 11:07 | Outpatient (CLI) | payer MEDICARE, OTHER, SELFPAY ==
[2022-02-18 11:15] VITALS: BMI 17.4
[2022-02-18 11:40] LABS: Basophils # 0.1 K/mm3 (0-0.2); Basophils % 0.4 % (0.1-2.0); Hematocrit 31.6 % (42.0-52.0); Hemoglobin 10.4 g/dL (14.1-18.0); Lymphocytes # 0.7 K/mm3 (0.7-4.5); Lymphocytes % 4.1 % (10-50); Mean Corpuscular Volume 84.9 fl (80-94); Monocytes # 0.6 K/mm3 (0.1-1.0); Monocytes % 3.7 % (1.7-9.3); Neutrophils # 15.9 K/mm3 (1.8-7.8); Neutrophils % 91.7 % (37.0-80.0); Platelet Count 567 K/mm3 (142-424); Red Blood Count 3.72 M/mm3 (4.60-6.20); Red Cell Distribution Width 20.6 % (11.5-17.5); White Blood Count 17.4 K/mm3 (4.8-10.8)
[2022-02-18 11:41] LABS: MANUAL DIFFERENTIAL MANUAL DIFFERENTIAL (MANUAL DIFF)
[2022-02-18 11:45] VITALS: BP 105/62; PULSE 87; RESP 18; TEMP 36.4; O2SAT 93
[2022-02-18 11:45] LABS: Chloride 102 mmol/L (98-107); Sodium 134 mmol/L (136-145)
[2022-02-18 11:48] LABS: Alanine Aminotransferase 16 U/L (12-78); Albumin Level 2.5 g/dl (3.5-5.0); Albumin/Globulin Ratio 0.9 (1.1-1.8); Alkaline Phosphatase 146 U/L (38-126); Aspartate Amino Transferase 24 U/L (17-59); Bilirubin,Total 0.5 mg/dl (0.2-1.3); Blood Urea Nitrogen 6 mg/dl (9-20); Carbon Dioxide 22 mmol/L (22.0-30.0); Creatinine Clearance Estimated 54 mL/min (50-200); Estimated Glomerular Filt Rate 163 ml/min (>60); GFR (African American) 198 ML/MIN (>60); Globulin 2.7 g/dL (1.3-3.2); Total Protein,Serum 5.2 g/dl (6.3-8.2)
[2022-02-18 11:49] LABS: Calcium 8.1 mg/dl (8.4-10.2); Glucose 100 mg/dl (74-100)
[2022-02-18 11:52] LABS: Anisocytosis 1+; Hypochromasia 1+; Lymphocytes % 2 % (10-50); Monocytes % 1 % (2-9); Neutrophils % 97 % (42-76); Ovalocytes 1+; Total Cells Counted 100
[2022-02-18 11:53] LABS: Platelet Estimate Slight Increase
[2022-02-18 12:15] VITALS: BP 110/63; PULSE 82; O2SAT 94
[2022-02-18 12:50] VITALS: BP 115/64; PULSE 84; TEMP 36.4; O2SAT 93
== END 2022-02-18 12:50 | disposition home or self-care (01) ==
LOC: INF 11:10
PROVIDERS: PCP Internal Medicine; Visit Provider Internal Medicine Medical Oncology
DX: C34.91 Malignant neoplasm of unspecified part of right bronchus or lung (principal); Z79.899 Other long term (current) drug therapy
CPT/HCPCS: 80053; 85007; 85025; 96360; J1642

== ENCOUNTER 2022-02-20 10:22 | Outpatient (CLI) | payer MEDICARE, OTHER, SELFPAY ==
[2022-02-20 11:18] VITALS: BMI 17.4
[2022-02-20 11:19] VITALS: BP 107/61; PULSE 64; RESP 18; O2SAT 92
[2022-02-20 11:49] LABS: Chloride 105 mmol/L (98-107)
[2022-02-20 11:50] LABS: Basophils # 0.1 K/mm3 (0-0.2); Basophils % 0.3 % (0.1-2.0); Hematocrit 30.2 % (42.0-52.0); Hemoglobin 10.1 g/dL (14.1-18.0); Lymphocytes # 0.7 K/mm3 (0.7-4.5); Lymphocytes % 3.3 % (10-50); Mean Corpuscular HGB Conc 33.6 g/dL (31.8-35.4); Mean Corpuscular Hemoglobin 28.1 pg (27.0-31.2); Mean Corpuscular Volume 83.9 fl (80-94); Mean Platelet Volume 8.5 fl (7.4-10.4); Monocytes # 0.8 K/mm3 (0.1-1.0); Monocytes % 3.8 % (1.7-9.3); Neutrophils # 18.9 K/mm3 (1.8-7.8); Neutrophils % 92.5 % (37.0-80.0); Platelet Count 542 K/mm3 (142-424); Red Cell Distribution Width 20.3 % (11.5-17.5); Sodium 134 mmol/L (136-145); White Blood Count 20.4 K/mm3 (4.8-10.8)
[2022-02-20 11:52] LABS: Alanine Aminotransferase 16 U/L (12-78); Alkaline Phosphatase 145 U/L (38-126); Aspartate Amino Transferase 31 U/L (17-59); Bilirubin,Total 0.5 mg/dl (0.2-1.3); Blood Urea Nitrogen 3 mg/dl (9-20); Creatinine Clearance Estimated 54 mL/min (50-200); Estimated Glomerular Filt Rate 211 ml/min (>60); GFR (African American) 256 ML/MIN (>60)
[2022-02-20 11:53] LABS: Albumin Level 2.3 g/dl (3.5-5.0); Albumin/Globulin Ratio 0.8 (1.1-1.8); Anion Gap 9.7 mEq/L (5-15); Carbon Dioxide 22 mmol/L (22.0-30.0); Globulin 2.8 g/dL (1.3-3.2); Glucose 102 mg/dl (74-100); Total Protein,Serum 5.1 g/dl (6.3-8.2)
[2022-02-20 11:56] LABS: Potassium 2.7 mmoL/L (3.5-5.1)
--- NOTE | 2022-02-20 12:01 | PC.NURSE ---
Addendum entered by Alyssa Long RN 02/20/22 12:06: Fax # given was [phone] Original Note: Lab called critical result on pt, I notified lab that pt's MD is at Cancer center and results should be sent there. I called to attempt to notify pt's MD. not available but I was given a fax # from [facility] to fax results to. I forwarded MD's fx # to lab.
[2022-02-20 12:25] LABS: MANUAL DIFFERENTIAL MANUAL DIFFERENTIAL (MANUAL DIFF)
[2022-02-20 18:16] LABS: Lymphocytes % 7 % (10-50); Neutrophils % 87 % (42-76); Platelet Estimate Normal; RBC Morphology Normal; Total Cells Counted 100
== END 2022-02-20 12:34 | disposition home or self-care (01) ==
PROVIDERS: Visit Provider Internal Medicine Medical Oncology
DX: C34.91 Malignant neoplasm of unspecified part of right bronchus or lung (principal); Z79.899 Other long term (current) drug therapy
CPT/HCPCS: 80053; 85007; 85025; 96360; J1642

== ENCOUNTER 2022-03-24 10:00 | Outpatient (RCR) | payer MEDICARE, OTHER, SELFPAY | END 2022-03-24 10:05 | disposition home or self-care (01) | LOC: PT 10:00 | DX: G62.0 Drug-induced polyneuropathy (principal); C34.91 Malignant neoplasm of unspecified part of right bronchus or lung | CPT/HCPCS: 97110; 97163 ==

== ENCOUNTER 2022-03-28 04:10 | Inpatient (IN) | payer MEDICARE, OTHER, SELFPAY ==
[2022-03-28] VITALS (19 sets, daily range): BP systolic 99–158; BP diastolic 65–94; PULSE 83–101; RESP 18–28; TEMP 36.4–36.8; O2SAT 86–99; BMI 16.1; BMI 15.8
--- NOTE | 2022-03-28 04:11 | HMH.EDGENADL ---
ED Disposition Clinical Impression: Acute and chronic respiratory failure with hypoxia, Tension pneumothorax Pulmonary embolus Qualifiers: Pulmonary embolism type: unspecified Chronicity: acute Acute cor pulmonale presence: without acute cor pulmonale Qualified Code(s): I26.99 - Other pulmonary embolism without acute cor pulmonale Lung cancer Qualifiers: Laterality: right Lung location: unspecified part of lung Qualified Code(s): C34.91 - Malignant neoplasm of unspecified part of right bronchus or lung Disposition: Admitted As Inpatient Condition on Discharge: Undetermined Referrals: Armin Ochoa MD [Primary Care Provider] - - Critical Care Critical Care Time: Yes Attestation: On , the high probability of a clinically significant, sudden or life threatening deterioration of the following system(s) required my full and direct attention, intervention and personal management. The time I documented below is in addition to time spent performing reported procedures but includes the following listed in this critical care notation. Total Critical Care Time: 60 Vital system(s) involved:: Respiratory Failure My critical care processes included: Assessment & monitoring of V/S, Initial and Re-exams, Data Review/Interpretation, Coordinating Care, Medication Orders and management, Documentation Medical Decision Making - Medical Records Medical records reviewed: Yes: I reviewed the patient's medical records. - Anthony Inquiry Pt receiving controlled substance: No Vital Signs: 03/28/22 04:09 03/28/22 04:30 03/28/22 05:00 Temperature 97.7 F Temperature Source Oral Pulse Rate 101 H 87 Pulse Rate [Right] 99 H Respiratory Rate 23 28 H 20 Blood Pressure 130/88 Blood Pressure [Right Arm] 114/85 Blood Pressure Mean 101 Blood Pressure Mean [Right Arm] 94 Blood Pressure Source [Right Arm] Automatic Cuff 02 Sat by Pulse Oximetry 96 86 L 96 Oxygen Delivery Method Nasal Cannula Room Air Nasal Cannula Oxygen Flow Rate (LPM) 4 4 - Lab Data Lab results reviewed: Yes: I reviewed the patient's lab results. Lab Results 03/28/22 04:20: WBC 15.1 H, RBC 4.03 L, Hgb 11.1 L, Hct 35.9 L, MCV 89.1, MCH 27.5, MCHC 30.8 L, RDW 20.4 H, Plt Count 443 H, MPV 8.7, Neut % (Auto) 93.4 H, Lymph % (Auto) 4.0 L, [place] % (Auto) 1.8, Eos % (Auto) 0.4, Baso % (Auto) 0.4, Neut # (Auto) 14.1 H, Lymph # (Auto) 0.6 L, [place] # (Auto) 0.3, Eos # (Auto) 0.1, Baso # (Auto) 0.1, Total Counted 100, Neutrophils % (Manual) 84 H, Band Neutrophils % 9.0 H, Lymphocytes % (Manual) 7 L, Platelet Estimate Slight increase, Hypochromasia 1+, Anisocytosis 2+, Macrocytosis 1+, Rouleaux 1+ 03/28/22 04:20: Sodium 134 L, Potassium 3.7, Chloride 102, Carbon Dioxide 26, Anion Gap 9.7, BUN 10, Creatinine 0.40 L, Estimated Creat Clear 51, Estimated GFR 211, Est GFR ( Amer) 256, Glucose 102 H, Calcium 8.2 L, Magnesium 1.8, Total Bilirubin 0.2, AST 23, ALT 19, Alkaline Phosphatase 126, Troponin I 0.01, C-Reactive Protein 24.3 H, Total Protein 5.8 L, Albumin 2.8 L, Globulin 3.0, Albumin/Globulin Ratio 0.9 L, Procalcitonin 0.169 03/28/22 04:20: Lactate 2.0 03/28/22 04:20: NT-Pro-B Natriuret Pep 1640 H 03/28/22 05:37: SARS-CoV-2 (PCR) Not detected, Influenza A Untype (PCR) Not detected, Influenza Type B (PCR) Not detected Result diagrams: 03/28/22 04:20 03/28/22 04:20 Orders (Tests/Meds): ED MEDICATIONS Generic Name Dose Route Start Last Admin Trade Name Freq PRN Reason Stop Dose Admin Benzonatate 100 mg 03/28/22 05:45 Benzonatate 100mg Capsule PO 04/27/22 05:44 ONCE MICHELINE Lactated Ringer's 1,000 mls @ 500 mls/hr 03/28/22 04:30 03/28/22 04:29 Lactated Ringer's 1000 Ml Bag IV 03/28/22 06:29 500 mls/hr .Q2H MICHELINE Administration Sodium Chloride 1,000 mls @ 125 mls/hr 03/28/22 06:45 03/28/22 06:46 Sod Chlor 0.9% 1000ml Bag IV 03/28/22 14:44 125 mls/hr .Q8H MICHELINE Administration Discontinued Medications Generic Name Dose Route Star
--- NOTE | 2022-03-28 04:23 | CT_ITS ---
PROCEDURE INFORMATION: Exam: CTA Chest With Contrast Exam date and time: 03/28/2022 5:16 AM Age: 71 years old Clinical indication: Cough and dyspnea; Smoker's cough; Patient HX: Asked several times if he's had his lung removed due to his lung cancer and the patient stated no each time. ; Additional info: Hypoxia TECHNIQUE: Imaging protocol: Computed tomographic angiography of the chest with contrast. 3D rendering (Not supervised by radiologist): MIP and/or 3D reconstructed images were created by the technologist. Radiation optimization: All CT scans at this facility use at least one of these dose optimization techniques: automated exposure control; mA and/or kV adjustment per patient size (includes targeted exams where dose is matched to clinical indication); or iterative reconstruction. Contrast material: ISOVUE 370; Contrast volume: 70 ml; Contrast route: INTRAVENOUS (IV); COMPARISON: CT ANGIO CHEST 01/26/2021 1:52 PM FINDINGS: Pulmonary arteries: Narrowing of the right upper lobe pulmonary artery is noted secondary to a large right hilar mass. Aorta: Unremarkable. No aortic aneurysm. No aortic dissection. Veins: Stents are present within the subclavian veins bilaterally extending into the superior vena cava. There is no flow identified. Lungs: Postobstructive changes are seen in the right lower lobe. There appears to be a small embolus in 1 of the segmental branches in the right lower lobe. Diffuse centrilobular emphysema is present. There are multiple new nodular opacities within the left chest. The largest is seen just above the left hilum measuring 15 mm in diameter. Pleural spaces: A large right-sided pneumothorax is noted. Lateral to this pleural 12 mm ill-defined nodule is noted in several seen within the left lower lobe at least 7 of these nodules are present. Heart: Coronary atherosclerosis is noted. Mediastinal space: There is shift of the mediastinum to the left. Hilar mass does appear to be smaller than on the prior examination. Lymph nodes: Unremarkable. No enlarged lymph nodes. Bones/joints: Unremarkable. No acute fracture. Soft tissues: Unremarkable. IMPRESSION: 1. A single small pulmonary embolism is present in a segmental branch of the right lower lobe. 2. A large right-sided pneumothorax is noted associated which shift of the mediastinum to the left. 3. Large right infiltrating hilar mass as previously described. Postobstructive changes to the right lower and right upper lobes and right middle lobes are noted. 4. Stents are present within the subclavian veins and superior vena cava, no flow is identified within these vessels however. 5. Multiple new nodules are seen throughout the left lung consistent with probable metastatic disease. 6. Coronary atherosclerosis. THIS REPORT CONTAINS FINDINGS THAT MAY BE CRITICAL TO PATIENT CARE. The findings were verbally communicated via telephone conference with Lien Vasquez at 5:48 AM EDT on 03/28/2022. The findings were acknowledged and understood.
--- NOTE | 2022-03-28 04:23 | XR_ITS ---
PROCEDURE INFORMATION: Exam: XR Chest Exam date and time: 03/28/2022 5:31 AM Age: 71 years old Clinical indication: Cough and dyspnea; Smoker's cough TECHNIQUE: Imaging protocol: Radiologic exam of the chest. Views: 1 view. COMPARISON: CT ANGIO CHEST PE PROTOCOL 03/28/2022 5:16 AM FINDINGS: Lungs: Right hilar mass seen. Advanced emphysema. Multiple left-sided parenchymal nodules. Pleural spaces: Large right-sided pneumothorax again noted. Heart/Mediastinum: Unremarkable. No cardiomegaly. Vasculature: Multiple stents. Bones/joints: Unremarkable. IMPRESSION: Large right-sided pneumothorax. Treating physician is aware after CT reading.
[2022-03-28 04:32] LABS: Basophils # 0.1 K/mm3 (0-0.2); Basophils % 0.4 % (0.1-2.0); Eosinophils # 0.1 K/mm3 (0.0-0.4); Eosinophils % 0.4 % (0.1-12.0); Hematocrit 35.9 % (42.0-52.0); Hemoglobin 11.1 g/dL (14.1-18.0); Lymphocytes # 0.6 K/mm3 (0.7-4.5); Mean Corpuscular HGB Conc 30.8 g/dL (31.8-35.4); Mean Corpuscular Hemoglobin 27.5 pg (27.0-31.2); Mean Corpuscular Volume 89.1 fl (80-94); Mean Platelet Volume 8.7 fl (7.4-10.4); Monocytes # 0.3 K/mm3 (0.1-1.0); Monocytes % 1.8 % (1.7-9.3); Neutrophils # 14.1 K/mm3 (1.8-7.8); Neutrophils % 93.4 % (37.0-80.0); Platelet Count 443 K/mm3 (142-424); Red Blood Count 4.03 M/mm3 (4.60-6.20); Red Cell Distribution Width 20.4 % (11.5-17.5); White Blood Count 15.1 K/mm3 (4.8-10.8)
[2022-03-28 04:34] LABS: MANUAL DIFFERENTIAL MANUAL DIFFERENTIAL (MANUAL DIFF)
[2022-03-28 04:43] LABS: Anisocytosis 2+; Hypochromasia 1+; Lymphocytes % 7 % (10-50); Macrocytosis 1+; Neutrophils % 84 % (42-76); Platelet Estimate Slight Increase; Rouleaux 1+; Total Cells Counted 100
[2022-03-28 04:45] LABS: Alanine Aminotransferase 19 U/L (12-78); Albumin Level 2.8 g/dl (3.5-5.0); Albumin/Globulin Ratio 0.9 (1.1-1.8); Alkaline Phosphatase 126 U/L (38-126); Anion Gap 9.7 mEq/L (5-15); Aspartate Amino Transferase 23 U/L (17-59); Bilirubin,Total 0.2 mg/dl (0.2-1.3); Blood Urea Nitrogen 10 mg/dl (9-20); Calcium 8.2 mg/dl (8.4-10.2); Carbon Dioxide 26 mmol/L (22.0-30.0); Chloride 102 mmol/L (98-107); Creatinine Clearance Estimated 51 mL/min (50-200); Estimated Glomerular Filt Rate 211 ml/min (>60); GFR (African American) 256 ML/MIN (>60); Glucose 102 mg/dl (74-100); Magnesium 1.8 mg/dl (1.6-2.3); Potassium 3.7 mmoL/L (3.5-5.1); Sodium 134 mmol/L (136-145); Total Protein,Serum 5.8 g/dl (6.3-8.2)
[2022-03-28 04:50] LABS: C-Reactive Protein 24.3 mg/L (0-4)
[2022-03-28 04:56] LABS: NT Pro Brain Natriuretic Pep. 1640 pg/mL (0-125)
[2022-03-28 05:04] LABS: Procalcitonin 0.169 ng/mL (0.0-2.0)
[2022-03-28 05:20] LABS: Troponin I 0.01 ng/ml (0.00-0.034)
--- NOTE | 2022-03-28 05:47 | ECG_ITS ---
APPROVED REPORT Exam: Resting ECG HR:94 bpm ECG Measurements Heart Rate 94 AXES MT 168 P 96 QRSd 134 QRS 155 QT 394 T 54 QTc 445 Conclusion SINUS RHYTHM Nonspecific IV conduction delay NORMAL ECG UNCONFIRMED REPORT Electronically signed by : Josh Garcia MD 03/29/2022 21:47:49
[2022-03-28 05:48] LABS: Coronavirus 19, PCR Not Detected (NotDetected); Influenza A, PCR Not Detected (NotDetected); Influenza B, PCR Not Detected (NotDetected)
--- NOTE | 2022-03-28 06:30 | XR_ITS ---
PROCEDURE INFORMATION: Exam: XR Chest Exam date and time: 03/28/2022 6:36 AM Age: 71 years old Clinical indication: Device placement; Chest tube; Additional info: Post chest tube insertion TECHNIQUE: Imaging protocol: Radiologic exam of the chest. Views: 1 view. COMPARISON: CR XR CHEST PORTABLE 03/28/2022 5:31 AM FINDINGS: Tubes, catheters and devices: Thoracostomy tube terminates in the right upper lobe. MediPort terminates in the superior vena cava. Lungs: Most of the right lung has been reinflated. There may be small pneumothorax in the right apex measuring 3.6 cm.. Diffuse opacities in the right hemithorax may represent atelectasis or pneumonia superimposed over chronic lung changes.. Pleural spaces: See Lungs finding. Heart/Mediastinum: Endovascular stent along the medial aspect of the right hemithorax stable Bones/joints: Unremarkable. Soft tissues: Subcutaneous emphysema along the right chest. Other findings: Patient is leaning to the left. IMPRESSION: 1. Most of the right lung has been reinflated. There may be small pneumothorax in the right apex measuring 3.6 cm.. 2. Thoracostomy tube terminates in the right upper lobe. 3. MediPort terminates in the superior vena cava. 4. Diffuse opacities in the right hemithorax may represent atelectasis or pneumonia superimposed over chronic lung changes..
--- NOTE | 2022-03-28 06:43 | PC.NURSE ---
Dr. Vasquez placed chest tube to lateral R upper chest area. Initially requested be set to continuous LWS suction via pleuro-vac. return 75 ml of serousanguineous. MD then requested chest tube to set to water seal. Bubbling noted to water chamber on during coughing tasneemllrenetta, aware.
[2022-03-28 07:27] LABS: INR 0.98 (0.9-1.1); Prothrombin Time 11.1 seconds (10.1-12.5)
--- NOTE | 2022-03-28 07:57 | PC.NURSE ---
pt paged for . House aware doctor has not called back
--- NOTE | 2022-03-28 08:20 | PC.NURSE ---
Sarah Berry called rt for vapotherm for pt
--- NOTE | 2022-03-28 09:55 | PC.NURSE ---
Addendum entered by Saige Theodore RN 03/28/22 10:00: 160ml* of serosanguineous fluid in the pleur-evac. Original Note: this RN at bedside with dr pena. chest tube dressing changed per MD. 300ml of serosanguineous fluid noted in pleur-evac.
--- NOTE | 2022-03-28 10:01 | PC.NURSE ---
report called to Maria Luisa HUNT
--- NOTE | 2022-03-28 10:01 | PC.NURSE ---
report called to RN on med/surg by janeth HUNT
--- NOTE | 2022-03-28 10:01 | HMH.GSCON ---
*Admission Date: 03/28/22 *Reason for consult:: Right pneumothorax (chest tube management) *History of present illness: This is a 71-year-old gentleman who presented to emergency department with increasing shortness of air. He was diagnosed with a right spontaneous pneumothorax. A 12 [place] chest tube was placed by the emergency department physician and the surgical service was asked to manage the chest tube. Review of Systems - Review of Systems Review of systems:: unable to obtain - *Neurologic Denies confusion [facility] History Medical History: Reports:: Cancer Denies:: Diabetes Mellitus Type 1, Diabetes Mellitus Type 2, Internal Pacemaker, MRSA, Seizures *Have you ever received a pneumonia vaccine?: No *Have you received a flu vaccine this season?: Yes Other Medical History: Reports: Chemotherapy. Denies: Blood Transfusion Reaction Other Surgeries: Yes: Colonoscopy, Skin Cancer Excision, Other. No: Pacemaker Amputation: No Fractures: No - *Social History Smoking Status: Current every day smoker Tobacco Type: cigarettes # Packs/Day (cigarettes): 1 Alcohol Intake: current Alcohol Intake Frequency:: a few times a month *Occupational Status:: retired Housing: house Household Members: family *Travel in the last 8 weeks: None Family Hx:: Hypertension Meds Home Medications Medication Instructions Recorded Confirmed Type Apixaban [Eliquis 5mg Tablet] 10 mg PO BID 01/30/21 03/28/22 History dexAMETHasone [Dexamethasone] 4 mg PO TID 01/30/21 03/28/22 History gabapentin 300 mg capsule 300 mg PO TID cap 05/28/21 03/28/22 History Fluticasone Propionate [Flonase 1 spr NS BID 03/28/22 03/28/22 History 50mcg nasal spray 16gm] Allergies Allergy/AdvReac Type Severity Reaction Status Date / Time No Known Allergies Allergy Verified 09/03/21 14:31 Exam Vital signs and Labs for Last 24 Hours: Temp Pulse Resp BP Pulse Ox 97.7 F 87 18 115/80 96 03/28/22 04:09 03/28/22 09:30 03/28/22 08:00 03/28/22 09:30 03/28/22 09:30 Laboratory Results - last 24 hr 03/28/22 04:20: WBC 15.1 H, RBC 4.03 L, Hgb 11.1 L, Hct 35.9 L, MCV 89.1, MCH 27.5, MCHC 30.8 L, RDW 20.4 H, Plt Count 443 H, MPV 8.7, Neut % (Auto) 93.4 H, Lymph % (Auto) 4.0 L, [place] % (Auto) 1.8, Eos % (Auto) 0.4, Baso % (Auto) 0.4, Neut # (Auto) 14.1 H, Lymph # (Auto) 0.6 L, [place] # (Auto) 0.3, Eos # (Auto) 0.1, Baso # (Auto) 0.1, Total Counted 100, Neutrophils % (Manual) 84 H, Band Neutrophils % 9.0 H, Lymphocytes % (Manual) 7 L, Platelet Estimate Slight increase, Hypochromasia 1+, Anisocytosis 2+, Macrocytosis 1+, Rouleaux 1+ 03/28/22 04:20: Sodium 134 L, Potassium 3.7, Chloride 102, Carbon Dioxide 26, Anion Gap 9.7, BUN 10, Creatinine 0.40 L, Estimated Creat Clear 51, Estimated GFR 211, Est GFR ( Amer) 256, Glucose 102 H, Calcium 8.2 L, Magnesium 1.8, Total Bilirubin 0.2, AST 23, ALT 19, Alkaline Phosphatase 126, Troponin I 0.01, C-Reactive Protein 24.3 H, Total Protein 5.8 L, Albumin 2.8 L, Globulin 3.0, Albumin/Globulin Ratio 0.9 L, Procalcitonin 0.169 03/28/22 04:20: Lactate 2.0 03/28/22 04:20: NT-Pro-B Natriuret Pep 1640 H 03/28/22 04:20: PT 11.1, INR 0.98 03/28/22 05:37: SARS-CoV-2 (PCR) Not detected, Influenza A Untype (PCR) Not detected, Influenza Type B (PCR) Not detected I & O for Last 24 hours: Intake & Output 03/25/22 03/26/22 03/27/22 03/28/22 11:59 11:59 11:59 11:59 Weight 119 lb 0.794 oz - Constitutional no acute distress - *Routine Respiratory Exam Comments: Chest tube to continuous suction with positive air leak noted. No system air leak appreciable. Results - Labs 03/28/22 04:20 03/28/22 04:20 Laboratory Results - last 24 hr 03/28/22 04:20: WBC 15.1 H, RBC 4.03 L, Hgb 11.1 L, Hct 35.9 L, MCV 89.1, MCH 27.5, MCHC 30.8 L, RDW 20.4 H, Plt Count 443 H, MPV 8.7, Neut % (Auto) 93.4 H, Lymph % (Auto) 4.0 L, [place] % (Auto) 1.8, Eos % (Auto) 0.4, Baso % (Auto) 0.4, Neut # (Auto) 14.1 H, Lymph # (Auto) 0.6 L,
--- NOTE | 2022-03-28 10:22 | PC.NURSE ---
receiving RN and tech at the bedside to take pt to the floor
--- NOTE | 2022-03-28 11:00 | HMH.PHACONS ---
- Pharmacy Consult Date: 03/28/22 Time: 11:00 Referring provider: RHIANNA Reason for Consult:: VANCOMYCIN THERAPY MANAGEMENT Allergies and ADEs:: Allergies Allergy/AdvReac Type Severity Reaction Status Date / Time No Known Allergies Allergy Verified 09/03/21 14:31 Home Medications:: Home Medications Medication Instructions Recorded Confirmed Type Apixaban [Eliquis 5mg Tablet] 10 mg PO BID 01/30/21 03/28/22 History dexAMETHasone [Dexamethasone] 4 mg PO TID 01/30/21 03/28/22 History gabapentin 300 mg capsule 300 mg PO TID cap 05/28/21 03/28/22 History Fluticasone Propionate [Flonase 1 spr NS BID 03/28/22 03/28/22 History 50mcg nasal spray 16gm] Height: 1.83 m Weight: 53.07 kg Laboratory Results:: Laboratory Results - last 24 hr 03/28/22 04:20: WBC 15.1 H, RBC 4.03 L, Hgb 11.1 L, Hct 35.9 L, MCV 89.1, MCH 27.5, MCHC 30.8 L, RDW 20.4 H, Plt Count 443 H, MPV 8.7, Neut % (Auto) 93.4 H, Lymph % (Auto) 4.0 L, [place] % (Auto) 1.8, Eos % (Auto) 0.4, Baso % (Auto) 0.4, Neut # (Auto) 14.1 H, Lymph # (Auto) 0.6 L, [place] # (Auto) 0.3, Eos # (Auto) 0.1, Baso # (Auto) 0.1, Total Counted 100, Neutrophils % (Manual) 84 H, Band Neutrophils % 9.0 H, Lymphocytes % (Manual) 7 L, Platelet Estimate Slight increase, Hypochromasia 1+, Anisocytosis 2+, Macrocytosis 1+, Rouleaux 1+ 03/28/22 04:20: Sodium 134 L, Potassium 3.7, Chloride 102, Carbon Dioxide 26, Anion Gap 9.7, BUN 10, Creatinine 0.40 L, Estimated Creat Clear 51, Estimated GFR 211, Est GFR ( Amer) 256, Glucose 102 H, Calcium 8.2 L, Magnesium 1.8, Total Bilirubin 0.2, AST 23, ALT 19, Alkaline Phosphatase 126, Troponin I 0.01, C-Reactive Protein 24.3 H, Total Protein 5.8 L, Albumin 2.8 L, Globulin 3.0, Albumin/Globulin Ratio 0.9 L, Procalcitonin 0.169 03/28/22 04:20: Lactate 2.0 03/28/22 04:20: NT-Pro-B Natriuret Pep 1640 H 03/28/22 04:20: PT 11.1, INR 0.98 03/28/22 05:37: SARS-CoV-2 (PCR) Not detected, Influenza A Untype (PCR) Not detected, Influenza Type B (PCR) Not detected Medical History: Reports:: Cancer Denies:: Diabetes Mellitus Type 1, Diabetes Mellitus Type 2, Internal Pacemaker, MRSA, Seizures Assessment and Plan (1) Pneumothorax Status: Acute Category: Medical Code(s): J93.9 - Pneumothorax, unspecified - Assessment and plan all Dx Assessment and Plan for all problems:: PT WILL BE GIVEN VANCOMYCIN 1000MG (~20MG/KG) EVERY 24 HOURS ALONG WITH CEFEPIME FOR POSSIBLE PNEUMONIA ALONG WITH PNEUMOTHORAX. PHARMACY WILL FOLLOW DAILY AND ADJUST NECESSARY.
--- NOTE | 2022-03-28 11:02 | P.CONPHA_ITS ---
[facility] Pharmacy VTE Monitoring - Patient Demographics Admission date: 03/28/22 Report Date: 03/28/22 Time: 11:02 Allergies/Adverse Reactions: Patient Allergies No Known Allergies Allergy (Verified 09/03/21 14:31) Height: 1.83 m Weight: 53.07 kg Patient Problems: Current Active Problems Lung cancer (Acute) Pneumothorax (Acute) Acute and chronic respiratory failure with hypoxia (Acute) Tension pneumothorax (Acute) Pulmonary embolus (Acute) - VTE Risk Labs: VTE Related Lab Results Hgb 11.1 g/dL (14.1-18.0) L 03/28/22 04:20 Hct 35.9 % (42.0-52.0) L 03/28/22 04:20 Plt Count 443 K/mm3 (142-424) H 03/28/22 04:20 PT 11.1 seconds (10.1-12.5) 03/28/22 04:20 INR 0.98 (0.9-1.1) 03/28/22 04:20 BUN 10 mg/dl (9-20) 03/28/22 04:20 Creatinine 0.40 mg/dl (0.66-1.25) L 03/28/22 04:20 Estimated Creat Clear 51 mL/min (50-200) 03/28/22 04:20 Clinical Trial Participant: No - Prophylaxis VTE Prophylaxis Ordered?: Yes Types of VTE Prophylaxis: TEDS Knee High
--- NOTE | 2022-03-28 11:12 | HMH.PHAINT ---
verified home medication list using list from outpatient pharmacy and pt interview. Pt states he only takes gabapentin.
--- NOTE | 2022-03-28 13:48 | HMH.HP ---
*Admission Date: 03/28/22 *Chief complaint: lung cancer and pneumothorax *History of present illness: Patient is a 71-year-old white male, admitted to our service from the emergency room after presenting with complaints of cough and dyspnea. He has a history of lung cancer, receives chemo at [facility] at . Was diagnosed about a year ago. Cannot relay specifics of the type of cancer or his regimen. In the course of his work-up was found to have a large right-sided tension pneumothorax. A chest tube was subsequently placed on the right side. CTA chest is as follows IMPRESSION: 1. A single small pulmonary embolism is present in a segmental branch of the right lower lobe. 2. A large right-sided pneumothorax is noted associated which shift of the mediastinum to the left. 3. Large right infiltrating hilar mass as previously described. Postobstructive changes to the right lower and right upper lobes and right middle lobes are noted. 4. Stents are present within the subclavian veins and superior vena cava, no flow is identified within these vessels however. 5. Multiple new nodules are seen throughout the left lung consistent with probable metastatic disease. 6. Coronary atherosclerosis. Patient's regimen includes eliquis [facility] History Medical History: Reports:: Cancer Denies:: Diabetes Mellitus Type 1, Diabetes Mellitus Type 2, Internal Pacemaker, MRSA, Seizures *Have you ever received a pneumonia vaccine?: No *Have you received a flu vaccine this season?: Yes Other Medical History: Reports: Chemotherapy. Denies: Blood Transfusion Reaction Other Surgeries: Yes: Colonoscopy, Skin Cancer Excision, Other. No: Pacemaker Amputation: No Fractures: No - *Social History Smoking Status: Current every day smoker Tobacco Type: cigarettes # Packs/Day (cigarettes): 1 Alcohol Intake: current Alcohol Intake Frequency:: a few times a month *Occupational Status:: retired Housing: house Household Members: family *Travel in the last 8 weeks: None Family Hx:: Hypertension Review of Systems - Constitutional Reports anorexia, Reports lack of energy, Reports malaise, Reports weakness, Reports weight loss - Eyes Denies change in vision - ENT Reports hoarseness - *Cardiovascular Reports chest pain, Reports shortness of breath, Reports leg swelling - *Respiratory Reports chest congestion, Reports cough, Reports shortness of breath, Reports shortness of breath with activity, Reports pain with cough - *Gastrointestinal Denies abdominal pain - *Genitourinary Denies difficulty urinating - *Musculoskeletal Reports decreased muscle mass, Reports muscle weakness - Integumentary/Breasts Denies yellowing of the skin - *Neurologic Reports unsteadiness, Denies confusion - Psychiatric Reports lack of enjoyment - Endocrine Reports cold intolerance - Hematologic/Lymphatic Reports easy bruising, Denies easy bleeding - Allergic/Immunologic Denies hives Meds Home Medications Medication Instructions Recorded Confirmed Type dexAMETHasone [Dexamethasone] 4 mg PO TID 01/30/21 03/28/22 History gabapentin 300 mg capsule 600 mg PO TID cap 05/28/21 03/28/22 History Famotidine [Acid Controller] 20 mg PO BID 03/28/22 03/28/22 History Fluticasone Propionate [Flonase 1 spr NS BID 03/28/22 03/28/22 History 50mcg nasal spray 16gm] Nystatin [Nystatin Cr 100,000 1 gm TP QIDP PRN 03/28/22 03/28/22 History Units/GM 30GM] Pantoprazole Sodium 40 mg PO DAILY 03/28/22 03/28/22 History Allergies Allergy/AdvReac Type Severity Reaction Status Date / Time No Known Allergies Allergy Verified 09/03/21 14:31 Exam Vital signs and Labs for Last 24 Hours: Temp Pulse Resp BP Pulse Ox 97.6 F 95 H 21 124/85 97 03/28/22 10:37 03/28/22 10:42 03/28/22 10:37 03/28/22 10:37 03/28/22 10:37 Laboratory Results - last 24 hr 03/28/22 04:20: WBC 15.1 H, RBC 4.03 L, Hgb 11.1 L, Hct 35.9 L, MCV 8
--- NOTE | 2022-03-28 18:40 | PC.NURSE ---
Patient admitted from ER with chest tube drainage at 160. Left chest portacath accessed in ER. Patient on 25L 100% vapotherm but weaned to 34D483%. Patient continually takes oxygen off and oxygen sats drop to 70/80's. Patient educated about importance of keeping oxygen in but states he wants the oxygen turned down. Other VS stable and chest tube air leak noted has not changed since noted by doctor in ER.
[2022-03-29] VITALS (11 sets, daily range): BP systolic 97–134; BP diastolic 64–85; PULSE 72–106; RESP 20–22; TEMP 36.4–36.9; O2SAT 91–100
--- NOTE | 2022-03-29 06:00 | XR_ITS ---
PROCEDURE INFORMATION: Exam: XR Chest Exam date and time: 03/29/2022 5:41 AM Age: 71 years old Clinical indication: Condition or disease; Other: Chest tube for pneumo. ; Additional info: Continue care, ptx TECHNIQUE: Imaging protocol: Radiologic exam of the chest. Views: 1 view. COMPARISON: CR XR CHEST PORTABLE 03/28/2022 6:36 AM FINDINGS: Tubes, catheters and devices: Right-sided chest tube with the tip in the medial upper right hemithorax. Left port catheter similar to prior. Lungs: Chronic interstitial changes and patchy airspace disease, right greater than left and slightly increased compared to the prior exam. Pleural spaces: Persistent but improved small apical pneumothorax on the right with pleural thickening along the chest wall. Heart/Mediastinum: No acute findings or cardiomegaly. Vasculature: Vascular stents, unchanged. Bones/joints: No acute findings. Soft tissues: Soft tissue emphysema in the right chest wall. IMPRESSION: 1. Right-sided chest tube not significantly changed with persistent but improved small residual right apical pneumothorax. 2. Persistent bilateral foci of airspace disease, slightly increased compared to the prior exam. 3. Chronic interstitial changes.
--- NOTE | 2022-03-29 07:06 | HMH.GSPN ---
Subjective Patient reports: no new complaints Progress Note: A&P (1) Pneumothorax Status: Acute Assessment and plan: Chest tube to suction with continuous airleak. Follow-up films reveal persistent but somewhat improved apical pneumothorax. Continue current chest tube to suction for now (will increase to 40) Continue serial chest x-rays May require additional/replacement chest tube May require transferred to tertiary center with thoracic surgery if airleak persists (2) Lung cancer Status: Chronic (3) Pulmonary embolus Status: Chronic (4) Tension pneumothorax Status: Acute (5) Leukocytosis Status: Acute Exam Vital signs and Labs for Last 24 Hours: Temp Pulse Resp BP Pulse Ox 97.8 F 89 21 134/85 98 03/29/22 04:00 03/29/22 04:00 03/29/22 04:00 03/29/22 04:00 03/29/22 04:00 Laboratory Results - last 24 hr 03/28/22 04:20: PT 11.1, INR 0.98 I & O for Last 24 hours: Intake & Output 03/26/22 03/27/22 03/28/22 03/29/22 11:59 11:59 11:59 11:59 Intake Total 600 / 600 Output Total 250 / 250 Balance 350 / 350 Weight 117 lb - Constitutional no acute distress - *Routine Respiratory Exam Absent: respiratory distress Comments: Chest tube to suction. Continuous air leak noted.
[2022-03-29 08:42] LABS: Basophils % 0.2 % (0.1-2.0); Eosinophils # 0.1 K/mm3 (0.0-0.4); Eosinophils % 0.5 % (0.1-12.0); Hematocrit 32.4 % (42.0-52.0); Hemoglobin 9.9 g/dL (14.1-18.0); Lymphocytes # 0.4 K/mm3 (0.7-4.5); Lymphocytes % 2.2 % (10-50); Mean Corpuscular HGB Conc 30.4 g/dL (31.8-35.4); Mean Corpuscular Hemoglobin 27.7 pg (27.0-31.2); Mean Platelet Volume 8.3 fl (7.4-10.4); Monocytes # 0.5 K/mm3 (0.1-1.0); Monocytes % 2.9 % (1.7-9.3); Neutrophils # 15.4 K/mm3 (1.8-7.8); Neutrophils % 94.3 % (37.0-80.0); Platelet Count 270 K/mm3 (142-424); Red Blood Count 3.56 M/mm3 (4.60-6.20); Red Cell Distribution Width 20.8 % (11.5-17.5); White Blood Count 16.3 K/mm3 (4.8-10.8)
[2022-03-29 08:48] LABS: Chloride 106 mmol/L (98-107); Potassium 3.2 mmoL/L (3.5-5.1); Sodium 132 mmol/L (136-145)
[2022-03-29 08:50] LABS: Blood Urea Nitrogen 11 mg/dl (9-20); Creatinine Clearance Estimated 50 mL/min (50-200); Estimated Glomerular Filt Rate 163 ml/min (>60); GFR (African American) 198 ML/MIN (>60)
[2022-03-29 08:51] LABS: Alanine Aminotransferase 12 U/L (12-78); Albumin Level 2.4 g/dl (3.5-5.0); Albumin/Globulin Ratio 0.9 (1.1-1.8); Alkaline Phosphatase 99 U/L (38-126); Anion Gap 6.2 mEq/L (5-15); Aspartate Amino Transferase 17 U/L (17-59); Bilirubin,Total 0.4 mg/dl (0.2-1.3); Calcium 7.9 mg/dl (8.4-10.2); Carbon Dioxide 23 mmol/L (22.0-30.0); Globulin 2.7 g/dL (1.3-3.2); Glucose 134 mg/dl (74-100); Total Protein,Serum 5.1 g/dl (6.3-8.2)
[2022-03-29 08:58] LABS: MANUAL DIFFERENTIAL MANUAL DIFFERENTIAL (MANUAL DIFF)
--- NOTE | 2022-03-29 09:41 | HMH.ACPN2 ---
Internal Medicine - PN: Subj *Date: 03/29/22 *Time: 09:41 Interval history: Chest x-ray is reviewed. Residual apical pneumothorax but improvement noted. Chest tube was placed for a tension pneumothorax. Air leak is noted, Dr. Woods's notes are reviewed. Exam Vital signs and Labs for Last 24 Hours: Temp Pulse Resp BP Pulse Ox 97.6 F 91 H 21 123/78 94 L 03/29/22 08:00 03/29/22 08:00 03/29/22 08:00 03/29/22 08:00 03/29/22 09:25 Laboratory Results - last 24 hr 03/29/22 08:15: WBC 16.3 H, RBC 3.56 L, Hgb 9.9 L, Hct 32.4 L, MCV 91.0, MCH 27.7, MCHC 30.4 L, RDW 20.8 H, Plt Count 270 D, MPV 8.3, Neut % (Auto) 94.3 H, Lymph % (Auto) 2.2 L, [place] % (Auto) 2.9, Eos % (Auto) 0.5, Baso % (Auto) 0.2, Neut # (Auto) 15.4 H, Lymph # (Auto) 0.4 L, [place] # (Auto) 0.5, Eos # (Auto) 0.1, Baso # (Auto) 0.0 03/29/22 08:15: Sodium 132 L, Potassium 3.2 L, Chloride 106, Carbon Dioxide 23, Anion Gap 6.2, BUN 11, Creatinine 0.50 L D, Estimated Creat Clear 50, Estimated GFR 163, Est GFR ( Amer) 198 D, Glucose 134 H, Calcium 7.9 L, Total Bilirubin 0.4, AST 17 D, ALT 12 D, Alkaline Phosphatase 99, Total Protein 5.1 L, Albumin 2.4 L D, Globulin 2.7, Albumin/Globulin Ratio 0.9 L I & O for Last 24 hours: Intake & Output 03/26/22 03/27/22 03/28/22 03/29/22 23:59 23:59 23:59 23:59 Intake Total 360 / 600 600 / 600 Output Total 250 / 250 275 / 275 Balance 110 / 350 325 / 325 Weight 117 lb - Constitutional no acute distress, cachectic, chronically ill appearing, cooperative - *Routine HEENT Exam Head: Present: normocephalic Eye: Present: EOMI, PERRL ENT: Present: mucous membranes moist - *Routine Neck Exam Present: supple. Absent: lymphadenopathy - *Routine Respiratory Exam Present: rhonchi, diminished air movement. Absent: accessory muscle use, respiratory distress - *Routine Cardiovascular Exam Present: RRR - *Routine Abdominal Exam Present: soft, normoactive bowel sounds. Absent: tenderness - *Routine Extremities Exam Absent: cyanosis, clubbing, edema - *Routine Skin Exam Present: warm. Absent: rash - *Routine Neurological Exam Present: alert, oriented X3 Assessment and Plan (1) Pneumothorax Status: Acute Category: Medical Code(s): J93.9 - Pneumothorax, unspecified (2) Lung cancer Status: Chronic Qualifiers: Laterality: right Lung location: unspecified part of lung Qualified Code(s): C34.91 - Malignant neoplasm of unspecified part of right bronchus or lung Category: Medical Code(s): C34.90 - Malignant neoplasm of unspecified part of unspecified bronchus or lung (3) Pulmonary embolus Status: Chronic Qualifiers: Pulmonary embolism type: unspecified Chronicity: acute Acute cor pulmonale presence: without acute cor pulmonale Qualified Code(s): I26.99 - Other pulmonary embolism without acute cor pulmonale Category: Medical Code(s): I26.99 - Other pulmonary embolism without acute cor pulmonale (4) Tension pneumothorax Status: Acute Category: Medical Code(s): J93.0 - Spontaneous tension pneumothorax (5) Leukocytosis Status: Acute Category: Medical Code(s): D72.829 - Elevated white blood cell count, unspecified (6) PNA (pneumonia) Status: Acute Category: Medical Code(s): J18.9 - Pneumonia, unspecified organism - Assessment and plan all Dx Assessment and Plan for all problems:: Patient remains on broad-spectrum antibiotics, cefepime and vancomycin. Chest film suggest airspace disease and he is at risk for a postobstructive pneumonia. We will follow this with sequential chest films. Hiral Patel
[2022-03-29 09:58] LABS: Lymphocytes % 1 % (10-50); Neutrophils % 99 % (42-76); Total Cells Counted 100
[2022-03-29 09:59] LABS: Anisocytosis 1+; Hypochromasia 1+; Ovalocytes 1+
[2022-03-29 10:00] LABS: Platelet Estimate Normal
--- NOTE | 2022-03-29 12:22 | PC.NURSE ---
rounded on patient. lunch tray at bedside assisted patient with sitting up in bed so he could scoot back and eat. daughter also at bedside. currently they have no concerns about meds or current plan of care. patient eager to eat meal at this time. encouraged family and patient to ring out with any questions concerns or needs.
--- NOTE | 2022-03-29 17:33 | PC.NURSE ---
Air leak still noted from chest tube but no crepitus noted during shift. Patient voided via bedside commode. VS stable and patient able to be weaned by respiratory to lower settings on vapotherm.
[2022-03-30] VITALS (12 sets, daily range): BP systolic 97–125; BP diastolic 52–69; PULSE 82–110; RESP 20–24; TEMP 36.5–37.1; O2SAT 90–99; BMI 16.1; BMI 17.0
--- NOTE | 2022-03-30 05:43 | PC.NURSE ---
pt has been resistive to care this shift, has removed heart monitor, O2 sensor, and vapotherm oxygen at times, has also pulled at chest tube, pt educated about the importance of all monitoring devices as well as the chest tube remaining in place, but has continued to be resistive, O2 sats have been 92-95% on 15L/60%, using bedside commode with assistance, telemetry has shown BBB when in place
--- NOTE | 2022-03-30 06:00 | XR_ITS ---
PROCEDURE INFORMATION: Exam: XR Chest Exam date and time: 03/30/2022 5:28 AM Age: 71 years old Clinical indication: Condition or disease; Lung condition and disease; Pneumothorax; Prior surgery; Additional info: Ptx TECHNIQUE: Imaging protocol: Radiologic exam of the chest. Views: 1 view. COMPARISON: CR XR CHEST PORTABLE 03/29/2022 5:41 AM FINDINGS: Tubes, catheters and devices: Stable support tube and catheter. Lungs: Stable right volume loss with patchy infiltrates predominantly in the mid upper lung field as well as adjacent pleural thickening. Stable vague left lower lung infiltrate suspected. Pleural spaces: See Lungs finding. Heart/Mediastinum: Borderline heart size. Vasculature: Stable vascular graft. Bones/joints: Unremarkable. IMPRESSION: Essentially stable appearance compared to the previous day, with findings above.
[2022-03-30 06:39] LABS: Eosinophils # 0.1 K/mm3 (0.0-0.4); Eosinophils % 0.4 % (0.1-12.0); Lymphocytes # 0.4 K/mm3 (0.7-4.5); Monocytes # 0.6 K/mm3 (0.1-1.0)
[2022-03-30 06:51] LABS: Basophils % 0.3 % (0.1-2.0); Hematocrit 28.6 % (42.0-52.0); Mean Corpuscular HGB Conc 30.2 g/dL (31.8-35.4); Mean Corpuscular Hemoglobin 27.5 pg (27.0-31.2); Mean Corpuscular Volume 91.2 fl (80-94); Mean Platelet Volume 8.3 fl (7.4-10.4); Monocytes % 5.2 % (1.7-9.3); Neutrophils # 10.8 K/mm3 (1.8-7.8); Platelet Count 264 K/mm3 (142-424); Red Blood Count 3.14 M/mm3 (4.60-6.20); White Blood Count 11.8 K/mm3 (4.8-10.8)
[2022-03-30 06:56] LABS: Chloride 107 mmol/L (98-107); Hemoglobin 8.6 g/dL (14.1-18.0); Sodium 134 mmol/L (136-145)
[2022-03-30 06:58] LABS: MANUAL DIFFERENTIAL MANUAL DIFFERENTIAL (MANUAL DIFF)
[2022-03-30 06:59] LABS: Blood Urea Nitrogen 7 mg/dl (9-20); Calcium 7.7 mg/dl (8.4-10.2); Carbon Dioxide 24 mmol/L (22.0-30.0); Creatinine Clearance Estimated 51 mL/min (50-200); Estimated Glomerular Filt Rate 211 ml/min (>60); GFR (African American) 256 ML/MIN (>60); Glucose 125 mg/dl (74-100)
--- NOTE | 2022-03-30 07:01 | HMH.GSPN ---
Subjective Narrative: Currently without complaint Progress Note: A&P (1) Pneumothorax Status: Acute Assessment and plan: The patient is stable with current chest tube on 40 of suction. Airleak remains relatively continuous after patient awakened and more mobile/breathing heavier. No significant leak noted during time of immobility/rest. Overall this seems to be a very slight improvement. If the patient's air leak does not continue to improve he may require transfer to tertiary center for thoracic evaluation/intervention. Additional thoracostomy tube may be necessary if follow-up films show persistent/worsening pneumothorax. If follow-up films continue to show stability/improvement, additional chest tube(s) would likely be of limited benefit. (2) Lung cancer Status: Chronic (3) Pulmonary embolus Status: Chronic (4) Tension pneumothorax Status: Acute (5) Leukocytosis Status: Acute (6) PNA (pneumonia) Status: Acute Exam Vital signs and Labs for Last 24 Hours: Temp Pulse Resp BP Pulse Ox 98.1 F 91 H 22 97/52 L 90 L 03/30/22 04:00 03/30/22 06:06 03/30/22 04:00 03/30/22 04:00 03/30/22 06:06 Laboratory Results - last 24 hr 03/29/22 08:15: WBC 16.3 H, RBC 3.56 L, Hgb 9.9 L, Hct 32.4 L, MCV 91.0, MCH 27.7, MCHC 30.4 L, RDW 20.8 H, Plt Count 270 D, MPV 8.3, Neut % (Auto) 94.3 H, Lymph % (Auto) 2.2 L, [place] % (Auto) 2.9, Eos % (Auto) 0.5, Baso % (Auto) 0.2, Neut # (Auto) 15.4 H, Lymph # (Auto) 0.4 L, [place] # (Auto) 0.5, Eos # (Auto) 0.1, Baso # (Auto) 0.0, Total Counted 100, Neutrophils % (Manual) 99 H, Lymphocytes % (Manual) 1 L, Platelet Estimate Normal, Hypochromasia 1+, Anisocytosis 1+, Ovalocytes 1+ 03/29/22 08:15: Sodium 132 L, Potassium 3.2 L, Chloride 106, Carbon Dioxide 23, Anion Gap 6.2, BUN 11, Creatinine 0.50 L D, Estimated Creat Clear 50, Estimated GFR 163, Est GFR ( Amer) 198 D, Glucose 134 H, Calcium 7.9 L, Total Bilirubin 0.4, AST 17 D, ALT 12 D, Alkaline Phosphatase 99, Total Protein 5.1 L, Albumin 2.4 L D, Globulin 2.7, Albumin/Globulin Ratio 0.9 L 03/30/22 06:20: WBC 11.8 H D, RBC 3.14 L, Hgb 8.6 L D, Hct 28.6 L, MCV 91.2, MCH 27.5, MCHC 30.2 L, RDW 21.0 H, Plt Count 264, MPV 8.3, Neut % (Auto) 91.0 H, Lymph % (Auto) 3.0 L, [place] % (Auto) 5.2, Eos % (Auto) 0.4, Baso % (Auto) 0.3, Neut # (Auto) 10.8 H, Lymph # (Auto) 0.4 L, [place] # (Auto) 0.6, Eos # (Auto) 0.1, Baso # (Auto) 0.0 03/30/22 06:20: Carbon Dioxide 24, Glucose 125 H, Calcium 7.7 L I & O for Last 24 hours: Intake & Output 03/27/22 03/28/22 03/29/22 03/30/22 11:59 11:59 11:59 11:59 Intake Total 960 / 960 530 / 530 Output Total 525 / 525 375 / 375 Balance 435 / 435 155 / 155 Weight 117 lb 119 lb 0.794 oz Microbiology Reports for the Last 24 Hours: Microbiology 03/28/22 04:20 Blood Blood Culture - Preliminary NO GROWTH AFTER 48 HOURS 03/28/22 04:20 Blood Blood Culture - Preliminary NO GROWTH AFTER 48 HOURS - Constitutional no acute distress - *Routine Respiratory Exam Absent: respiratory distress Comments: Chest tube to 40 of suction. No air leak noted initially (while patient resting); however, significant and somewhat continuous leak after patient began to move/breathe heavier.
[2022-03-30 08:12] LABS: Lymphocytes % 1 % (10-50); Monocytes % 1 % (2-9); Neutrophils % 98 % (42-76); Total Cells Counted 100
[2022-03-30 08:13] LABS: Hypochromasia 2+; Platelet Estimate Normal
[2022-03-30 10:10] LABS: ABG Base Excess 1.1 mmol/L (-2.4-2.3); ABG HCO3 24.1 mmhg (22.0-26.0); ABG Oxygen Saturation 97 % (90-100); ABG PH 7.51 mmol/L (7.35-7.45); ABG PO2 86.7 mmhg (80-100); ABG TCO2 25.1 mmhg (23-27)
[2022-03-30 10:12] LABS: Oxygen 60% %
[2022-03-30 10:13] LABS: Allen's Test ACCEPTABLE; Source R RADIAL
[2022-03-30 11:03] LABS: Anion Gap 4.3 mEq/L (5-15); Blood Urea Nitrogen 8 mg/dl (9-20); Calcium 7.5 mg/dl (8.4-10.2); Carbon Dioxide 26 mmol/L (22.0-30.0); Chloride 106 mmol/L (98-107); Creatinine Clearance Estimated 51 mL/min (50-200); Estimated Glomerular Filt Rate 211 ml/min (>60); GFR (African American) 256 ML/MIN (>60); Glucose 108 mg/dl (74-100); Potassium 3.3 mmoL/L (3.5-5.1); Sodium 133 mmol/L (136-145)
[2022-03-30 11:09] LABS: Vancomycin,Trough < 5.0 ug/mL (5.0-10.0)
--- NOTE | 2022-03-30 11:18 | PC.NURSE ---
Per Jose L, pharmD- ok to give scheduled cori
--- NOTE | 2022-03-30 13:32 | PC.NURSE ---
ROUNDED ON PATIENT HE IS CURRENTLY RESTING SOUNDLY IN BED. DID ROUND THIS MORNING WITH MD. PATIENT IS NOTED TO BE SLIGHTLY ANTSY, BUT IN DECENT SPIRITS. NO COMPLAINTS OF PAIN. FOLLOW REIDS RECOMMENDATIONS IN REGARDS TO CHEST TUBE. REMAINS ON VAPOTHERM. NO QUESTIONS AT THAT TIME
--- NOTE | 2022-03-30 13:51 | HMH.ACPN2 ---
Internal Medicine - PN: Subj *Date: 03/30/22 *Time: 15:46 Interval history: 71-year-old male sitting up in bed resting quietly with eyes open, current oxygenation 94% on Vapotherm. He reports feeling better today than yesterday, airleak more noticeable when patient is moving, general surgery following remains on chest tube to suction. Exam Vital signs and Labs for Last 24 Hours: Temp Pulse Resp BP Pulse Ox 98.4 F 92 H 24 121/68 93 L 03/30/22 12:00 03/30/22 12:00 03/30/22 12:00 03/30/22 12:00 03/30/22 12:00 Laboratory Results - last 24 hr 03/30/22 06:20: WBC 11.8 H D, RBC 3.14 L, Hgb 8.6 L D, Hct 28.6 L, MCV 91.2, MCH 27.5, MCHC 30.2 L, RDW 21.0 H, Plt Count 264, MPV 8.3, Neut % (Auto) 91.0 H, Lymph % (Auto) 3.0 L, [place] % (Auto) 5.2, Eos % (Auto) 0.4, Baso % (Auto) 0.3, Neut # (Auto) 10.8 H, Lymph # (Auto) 0.4 L, [place] # (Auto) 0.6, Eos # (Auto) 0.1, Baso # (Auto) 0.0, Total Counted 100, Neutrophils % (Manual) 98 H, Lymphocytes % (Manual) 1 L, Monocytes % (Manual) 1 L, Platelet Estimate Normal, Hypochromasia 2+ 03/30/22 06:20: Sodium 134 L, Potassium 3.0 L, Chloride 107, Carbon Dioxide 24, Anion Gap 6.0, BUN 7 L D, Creatinine 0.40 L, Estimated Creat Clear 51, Estimated GFR 211, Est GFR ( Amer) 256 D, Glucose 125 H, Calcium 7.7 L 03/30/22 09:23: Specimen Source R radial, O2 % 60%, ABG pH 7.51 H, ABG pCO2 31.0 L, ABG pO2 86.7, ABG HCO3 24.1, ABG Total CO2 25.1, ABG O2 Saturation 97, ABG Base Excess 1.1, Douglas Test Acceptable 03/30/22 10:35: Sodium 133 L, Potassium 3.3 L, Chloride 106, Carbon Dioxide 26, Anion Gap 4.3 L, BUN 8 L, Creatinine 0.40 L, Estimated Creat Clear 51, Estimated GFR 211, Est GFR ( Amer) 256, Glucose 108 H, Calcium 7.5 L 03/30/22 10:35: Vancomycin Trough < 5.0 L I & O for Last 24 hours: Intake & Output 03/27/22 03/28/22 03/29/22 03/30/22 23:59 23:59 23:59 23:59 Intake Total 360 / 600 1080 / 1080 530 / 530 Output Total 250 / 250 445 / 445 205 / 205 Balance 110 / 350 635 / 635 325 / 325 Weight 117 lb 119 lb 0.794 oz Microbiology Reports for the Last 24 Hours: Microbiology 03/28/22 04:20 Blood Blood Culture - Preliminary NO GROWTH AFTER 48 HOURS 03/28/22 04:20 Blood Blood Culture - Preliminary NO GROWTH AFTER 48 HOURS - Constitutional no acute distress, chronically ill appearing - *Routine HEENT Exam Head: Present: normocephalic Eye: Present: EOMI ENT: Present: mucous membranes moist - *Routine Neck Exam Present: trachea midline. Absent: tracheal deviation - *Routine Respiratory Exam Present: rhonchi, wheezes - *Routine Cardiovascular Exam Present: RRR - *Routine Abdominal Exam Present: soft, normoactive bowel sounds. Absent: tenderness, firm - *Routine Extremities Exam Present: full ROM. Absent: cyanosis, clubbing - *Routine Skin Exam Present: dry. Absent: intact, cyanosis, erythema Comments: Dressing to right side with chest tube clean dry and intact - *Routine Neurological Exam Present: alert, altered mental status. Absent: motor deficit - Routine Psychiatric Exam Present: unable to assess Assessment and Plan (1) Pneumothorax Status: Acute Category: Medical Code(s): J93.9 - Pneumothorax, unspecified (2) Lung cancer Status: Chronic Qualifiers: Laterality: right Lung location: unspecified part of lung Qualified Code(s): C34.91 - Malignant neoplasm of unspecified part of right bronchus or lung Category: Medical Code(s): C34.90 - Malignant neoplasm of unspecified part of unspecified bronchus or lung (3) Pulmonary embolus Status: Chronic Qualifiers: Pulmonary embolism type: unspecified Chronicity: acute Acute cor pulmonale presence: without acute cor pulmonale Qualified Code(s): I26.99 - Other pulmonary embolism without acute cor pulmonale Category: Medical Code(s): I26.99 - Other pulmonary embolism without acute cor pulmonale
[2022-03-30 16:49] LABS: Vancomycin,Peak 10.9 ug/ml (11-39)
[2022-03-31] VITALS (13 sets, daily range): BP systolic 104–128; BP diastolic 47–84; PULSE 75–90; RESP 18–20; TEMP 36.5–37.7; O2SAT 95–99; BMI 16.5
--- NOTE | 2022-03-31 04:00 | PC.NURSE ---
no changes from previous assessment, pt slept off and on through the night, pt requesting to be deep suction in which respiratory explained to patient that dr. maria did not want pt deep suctioned, pt on vapotherm at 15/60 with sats 97-99; chest tube noted with small air leak with no changes from previous shift in which was reported dr pena aware of, VSS, lungs diminished with expiratory rhonchi, no other issues noted
--- NOTE | 2022-03-31 06:00 | XR_ITS ---
PROCEDURE INFORMATION: Exam: XR Chest Exam date and time: 03/31/2022 5:19 AM Age: 71 years old Clinical indication: Condition or disease; Lung condition and disease; Pneumothorax; Prior surgery; Additional info: Ptx TECHNIQUE: Imaging protocol: Radiologic exam of the chest. Views: 1 view. COMPARISON: CR XR CHEST PORTABLE 03/30/2022 5:28 AM FINDINGS: Lungs: Chronic interstitial changes are noted. Hyperinflation of the left lung. Diffuse patchy airspace disease of the right lung. Pleural spaces: Unremarkable. No pleural effusion. No pneumothorax. Heart/Mediastinum: Unremarkable. No cardiomegaly. Vasculature: Stable vascular graft is noted. Bones/joints: Unremarkable. IMPRESSION: Stable patchy right-sided airspace disease.
[2022-03-31 06:41] LABS: Chloride 106 mmol/L (98-107); Sodium 132 mmol/L (136-145)
[2022-03-31 06:42] LABS: Potassium 3.7 mmoL/L (3.5-5.1)
[2022-03-31 06:45] LABS: Anion Gap 3.7 mEq/L (5-15); Blood Urea Nitrogen 3 mg/dl (9-20); Calcium 7.6 mg/dl (8.4-10.2); Carbon Dioxide 26 mmol/L (22.0-30.0); Creatinine Clearance Estimated 52 mL/min (50-200); Estimated Glomerular Filt Rate 211 ml/min (>60); GFR (African American) 256 ML/MIN (>60); Glucose 93 mg/dl (74-100)
--- NOTE | 2022-03-31 08:00 | XR_ITS ---
FINAL REPORT CLINICAL HISTORY: post chest tube removal COMPARISON: Earlier the same day FINDINGS: A single portable view of the chest was obtained. A left-sided chest port is present. There are vascular stents in the mediastinum. A right side chest tube has been removed. The heart size and pulmonary vascularity are within normal limits. There are persistent bilateral pulmonary opacities, right greater than left. There is a small right pneumothorax with up to 16 mm of pleural separation. There is a right chest wall air. The bony thorax is intact. IMPRESSION: Interval removal of right sided chest tube. Persistent bilateral pulmonary opacities. Small right pneumothorax. Reviewed, Interpreted and Dictated by Moe Michael III, MD Transcribed by Natalia Paris Authenticated and [facility]
--- NOTE | 2022-03-31 08:14 | HMH.ACPN ---
Internal Medicine - PN: Subj *Date: 03/31/22 *Time: 08:14 Exam Vital signs and Labs for Last 24 Hours: Temp Pulse Resp BP Pulse Ox 98.7 F 77 20 108/58 L 99 03/31/22 03:51 03/31/22 06:07 03/31/22 03:51 03/31/22 03:51 03/31/22 06:07 Laboratory Results - last 24 hr 03/30/22 06:20: Total Counted 100, Neutrophils % (Manual) 98 H, Lymphocytes % (Manual) 1 L, Monocytes % (Manual) 1 L, Platelet Estimate Normal, Hypochromasia 2+ 03/30/22 09:23: Specimen Source R radial, O2 % 60%, ABG pH 7.51 H, ABG pCO2 31.0 L, ABG pO2 86.7, ABG HCO3 24.1, ABG Total CO2 25.1, ABG O2 Saturation 97, ABG Base Excess 1.1, Douglas Test Acceptable 03/30/22 10:35: Sodium 133 L, Potassium 3.3 L, Chloride 106, Carbon Dioxide 26, Anion Gap 4.3 L, BUN 8 L, Creatinine 0.40 L, Estimated Creat Clear 51, Estimated GFR 211, Est GFR ( Amer) 256, Glucose 108 H, Calcium 7.5 L 03/30/22 10:35: Vancomycin Trough < 5.0 L 03/30/22 16:00: Vancomycin Peak 10.9 L 03/31/22 06:00: Sodium 132 L, Potassium 3.7, Chloride 106, Carbon Dioxide 26, Anion Gap 3.7 L, BUN 3 L D, Creatinine 0.40 L, Estimated Creat Clear 52, Estimated GFR 211, Est GFR ( Amer) 256, Glucose 93, Calcium 7.6 L I & O for Last 24 hours: Intake & Output 03/28/22 03/29/22 03/30/22 03/31/22 23:59 23:59 23:59 23:59 Intake Total 360 / 600 1080 / 1080 1490 / 1490 50 / 50 Output Total 250 / 250 445 / 445 1405 / 1705 500 / 500 Balance 110 / 350 635 / 635 85 / -215 -450 / -450 Weight 53.07 kg 54 kg 55.565 kg Microbiology Reports for the Last 24 Hours: Microbiology 03/30/22 11:36 Sputum - Expectorated Sputum Gram Stain - Final 03/28/22 04:20 Blood Blood Culture - Preliminary NO GROWTH AFTER 48 HOURS 03/28/22 04:20 Blood Blood Culture - Preliminary NO GROWTH AFTER 48 HOURS Assessment and Plan (1) Pneumothorax Status: Acute Category: Medical Code(s): J93.9 - Pneumothorax, unspecified (2) Lung cancer Status: Chronic Qualifiers: Laterality: right Lung location: unspecified part of lung Qualified Code(s): C34.91 - Malignant neoplasm of unspecified part of right bronchus or lung Category: Medical Code(s): C34.90 - Malignant neoplasm of unspecified part of unspecified bronchus or lung (3) Pulmonary embolus Status: Chronic Qualifiers: Pulmonary embolism type: unspecified Chronicity: acute Acute cor pulmonale presence: without acute cor pulmonale Qualified Code(s): I26.99 - Other pulmonary embolism without acute cor pulmonale Category: Medical Code(s): I26.99 - Other pulmonary embolism without acute cor pulmonale (4) Tension pneumothorax Status: Acute Category: Medical Code(s): J93.0 - Spontaneous tension pneumothorax (5) Leukocytosis Status: Acute Category: Medical Code(s): D72.829 - Elevated white blood cell count, unspecified (6) PNA (pneumonia) Status: Acute Category: Medical Code(s): J18.9 - Pneumonia, unspecified organism Is the patient receiving the right drug, dose, and route?: Yes Could a more targeted ABx be ordered?: No (SPUTUM PENDING,WBC DECREASED, AFEBRILE)
--- NOTE | 2022-03-31 08:29 | HMH.GSPN ---
Subjective Patient reports: no new complaints Progress Note: A&P (1) Pneumothorax Status: Acute Assessment and plan: The patient's current chest tube is essentially damaged at the insertion site. Air leaks worse could likely be subcu displacement with damage. Chest tube to be removed with follow-up films. May require replacement chest tube. (2) Lung cancer Status: Chronic (3) Pulmonary embolus Status: Chronic (4) Tension pneumothorax Status: Acute (5) Leukocytosis Status: Acute (6) PNA (pneumonia) Status: Acute Exam Vital signs and Labs for Last 24 Hours: Temp Pulse Resp BP Pulse Ox 98.7 F 77 20 108/58 L 99 03/31/22 03:51 03/31/22 06:07 03/31/22 03:51 03/31/22 03:51 03/31/22 06:07 Laboratory Results - last 24 hr 03/30/22 09:23: Specimen Source R radial, O2 % 60%, ABG pH 7.51 H, ABG pCO2 31.0 L, ABG pO2 86.7, ABG HCO3 24.1, ABG Total CO2 25.1, ABG O2 Saturation 97, ABG Base Excess 1.1, Douglas Test Acceptable 03/30/22 10:35: Sodium 133 L, Potassium 3.3 L, Chloride 106, Carbon Dioxide 26, Anion Gap 4.3 L, BUN 8 L, Creatinine 0.40 L, Estimated Creat Clear 51, Estimated GFR 211, Est GFR ( Amer) 256, Glucose 108 H, Calcium 7.5 L 03/30/22 10:35: Vancomycin Trough < 5.0 L 03/30/22 16:00: Vancomycin Peak 10.9 L 03/31/22 06:00: Sodium 132 L, Potassium 3.7, Chloride 106, Carbon Dioxide 26, Anion Gap 3.7 L, BUN 3 L D, Creatinine 0.40 L, Estimated Creat Clear 52, Estimated GFR 211, Est GFR ( Amer) 256, Glucose 93, Calcium 7.6 L I & O for Last 24 hours: Intake & Output 03/28/22 03/29/22 03/30/22 03/31/22 11:59 11:59 11:59 11:59 Intake Total 960 / 960 1010 / 1010 1010 / 1010 Output Total 525 / 525 375 / 375 1700 / 1700 Balance 435 / 435 635 / 635 -690 / -690 Weight 117 lb 119 lb 0.794 oz 122 lb 8 oz Microbiology Reports for the Last 24 Hours: Microbiology 03/30/22 11:36 Sputum - Expectorated Sputum Gram Stain - Final 03/28/22 04:20 Blood Blood Culture - Preliminary NO GROWTH AFTER 48 HOURS 03/28/22 04:20 Blood Blood Culture - Preliminary NO GROWTH AFTER 48 HOURS - Constitutional no acute distress - *Routine Respiratory Exam Absent: respiratory distress Comments: Persistent/consistent air leak Chest tube insertion site evaluated. SQ displacement with air pocket noted.
[2022-03-31 08:31] LABS: Basophils % 0.4 % (0.1-2.0); Eosinophils # 0.1 K/mm3 (0.0-0.4); Hematocrit 25.6 % (42.0-52.0); Hemoglobin 8.5 g/dL (14.1-18.0); Lymphocytes # 0.4 K/mm3 (0.7-4.5); Lymphocytes % 10.4 % (10-50); Mean Corpuscular HGB Conc 33.3 g/dL (31.8-35.4); Mean Corpuscular Hemoglobin 28.2 pg (27.0-31.2); Mean Corpuscular Volume 84.7 fl (80-94); Mean Platelet Volume 8.2 fl (7.4-10.4); Monocytes # 0.6 K/mm3 (0.1-1.0); Monocytes % 14.7 % (1.7-9.3); Neutrophils # 2.9 K/mm3 (1.8-7.8); Neutrophils % 71.5 % (37.0-80.0); Platelet Count 247 K/mm3 (142-424); Red Blood Count 3.02 M/mm3 (4.60-6.20); Red Cell Distribution Width 19.2 % (11.5-17.5); White Blood Count 4.1 K/mm3 (4.8-10.8)
--- NOTE | 2022-03-31 09:21 | HMH.ACPN2 ---
Internal Medicine - PN: Subj *Date: 03/31/22 *Time: 13:02 Interval history: 71-year-old male patient sitting up in bed, he does get short of breath with conversation. This morning chest tube was removed per general surgery, they discussed replacing chest tube with patient he refused stating he feels fine. Repeat chest x-rays ordered for 11 AM. Dressing to right chest clean/dry/intact. Patient denies any concerns/needs at this time states I want to go home Exam Vital signs and Labs for Last 24 Hours: Temp Pulse Resp BP Pulse Ox 98.7 F 77 20 108/58 L 99 03/31/22 03:51 03/31/22 06:07 03/31/22 03:51 03/31/22 03:51 03/31/22 06:07 Laboratory Results - last 24 hr 03/30/22 09:23: Specimen Source R radial, O2 % 60%, ABG pH 7.51 H, ABG pCO2 31.0 L, ABG pO2 86.7, ABG HCO3 24.1, ABG Total CO2 25.1, ABG O2 Saturation 97, ABG Base Excess 1.1, Douglas Test Acceptable 03/30/22 10:35: Sodium 133 L, Potassium 3.3 L, Chloride 106, Carbon Dioxide 26, Anion Gap 4.3 L, BUN 8 L, Creatinine 0.40 L, Estimated Creat Clear 51, Estimated GFR 211, Est GFR ( Amer) 256, Glucose 108 H, Calcium 7.5 L 03/30/22 10:35: Vancomycin Trough < 5.0 L 03/30/22 16:00: Vancomycin Peak 10.9 L 03/31/22 06:00: WBC 4.1 L D, RBC 3.02 L, Hgb 8.5 L, Hct 25.6 L, MCV 84.7, MCH 28.2, MCHC 33.3, RDW 19.2 H, Plt Count 247, MPV 8.2, Neut % (Auto) 71.5, Lymph % (Auto) 10.4, [place] % (Auto) 14.7 H, Eos % (Auto) 3.0, Baso % (Auto) 0.4, Neut # (Auto) 2.9, Lymph # (Auto) 0.4 L, [place] # (Auto) 0.6, Eos # (Auto) 0.1, Baso # (Auto) 0.0 03/31/22 06:00: Sodium 132 L, Potassium 3.7, Chloride 106, Carbon Dioxide 26, Anion Gap 3.7 L, BUN 3 L D, Creatinine 0.40 L, Estimated Creat Clear 52, Estimated GFR 211, Est GFR ( Amer) 256, Glucose 93, Calcium 7.6 L I & O for Last 24 hours: Intake & Output 03/28/22 03/29/22 03/30/22 03/31/22 23:59 23:59 23:59 23:59 Intake Total 360 / 600 1080 / 1080 1490 / 1490 50 / 50 Output Total 250 / 250 445 / 445 1405 / 1705 500 / 500 Balance 110 / 350 635 / 635 85 / -215 -450 / -450 Weight 117 lb 119 lb 0.794 oz 122 lb 8 oz Microbiology Reports for the Last 24 Hours: Microbiology 03/30/22 11:36 Sputum - Expectorated Sputum Gram Stain - Final - Constitutional chronically ill appearing - *Routine HEENT Exam Head: Present: normocephalic Eye: Present: EOMI ENT: Present: mucous membranes moist - *Routine Neck Exam Present: trachea midline. Absent: tracheal deviation - *Routine Respiratory Exam Present: rhonchi, wheezes. Absent: accessory muscle use - *Routine Cardiovascular Exam Present: RRR - *Routine Abdominal Exam Present: soft, normoactive bowel sounds. Absent: tenderness, firm - *Routine Extremities Exam Present: full ROM, pulses intact. Absent: cyanosis, clubbing - *Routine Skin Exam Present: intact, dry. Absent: cyanosis, erythema - *Routine Neurological Exam Present: alert, altered mental status - Routine Psychiatric Exam Present: unable to assess Assessment and Plan (1) Pneumothorax Status: Acute Category: Medical Code(s): J93.9 - Pneumothorax, unspecified (2) Lung cancer Status: Chronic Qualifiers: Laterality: right Lung location: unspecified part of lung Qualified Code(s): C34.91 - Malignant neoplasm of unspecified part of right bronchus or lung Category: Medical Code(s): C34.90 - Malignant neoplasm of unspecified part of unspecified bronchus or lung (3) Pulmonary embolus Status: Chronic Qualifiers: Pulmonary embolism type: unspecified Chronicity: acute Acute cor pulmonale presence: without acute cor pulmonale Qualified Code(s): I26.99 - Other pulmonary embolism without acute cor pulmonale Category: Medical Code(s): I26.99 - Other pulmonary embolism without acute cor pulmonale (4) Tension pneumothorax Status: Acute Category: Medical Code(s): J93.0 - Spontaneous tension pneumothorax (5) Leukocytosis Status: Acute Category: Medica
--- NOTE | 2022-03-31 10:58 | PC.NURSE ---
rounded on patient. some soreness from where chest tube was. possible need for reinsertion of chest tube and patient stated he was unsure if he would agree to have it done or not it would be dependent on what he had to say and my mood . educated on why it would be needed and risks. states he doesn't feel anymore short of breath or anything. stated he was hoping to try and sleep. blinds pulled down to darken room some. no concerns with medications.
--- NOTE | 2022-03-31 11:00 | XR_ITS ---
FINAL REPORT CLINICAL HISTORY: right ptx COMPARISON: Earlier the same day FINDINGS: A single portable view of the chest was obtained. A left-sided chest port is present. The heart size and pulmonary vascularity are within normal limits. There are postoperative changes within the mediastinum. There are persistent bilateral pulmonary opacities. There is a small to moderate right pneumothorax with 23 mm of pleural separation, somewhat larger. Right lateral chest wall air persists. The bony thorax is intact. IMPRESSION: Small to moderate right pneumothorax, somewhat larger. Other findings are stable. Reviewed, Interpreted and Dictated by Moe Michael III, MD Transcribed by Natalia Paris Authenticated and [facility]
--- NOTE | 2022-03-31 15:29 | DIET.NUTRFU ---
RD reviewed meal intake, meals on 03/30 were 75% for most but only 5% for breakfast this morning. When RD went to interview patient he was asleep. He did fill out menu, he is on regular diet. Nursing aid in room and encouraged her if he did not like lunch or had poor intake we could bring him something else. Lunch intake was 50%. He does not trigger for nutritional assessment but will continue to monitor meal intake.
--- NOTE | 2022-03-31 16:18 | XR_ITS ---
PROCEDURE INFORMATION: Exam: XR Chest Exam date and time: 03/31/2022 4:43 PM Age: 71 years old Clinical indication: Device placement; Other: Thoracostomy tube; Additional info: Right pneumothorax. Replacement thoracostomy tube. TECHNIQUE: Imaging protocol: Radiologic exam of the chest. Views: 1 view. COMPARISON: CR XR CHEST PORTABLE 03/31/2022 11:54 AM FINDINGS: Tubes, catheters and devices: Right chest tube with tip overlying the apex. Stable left MediPort catheter. Lungs: Ill-defined right lung and left lower lung infiltrates. Pleural spaces: Right upper pneumothorax cannot be excluded. Irregular right lateral pleural thickening. Heart/Mediastinum: Unremarkable. No cardiomegaly. Vasculature: Stable vascular grafts. Bones/joints: Unremarkable. Soft tissues: Right lateral chest wall soft tissue emphysema. IMPRESSION: 1. Right chest tube. 2. Right upper pneumothorax not excluded. 3. Otherwise stable appearance compared to earlier in the day.
--- NOTE | 2022-03-31 16:20 | HMH.OPNOTE ---
Date of procedure: 03/31/22 Pre-op Diagnosis:: Right pneumothorax Post-op Diagnosis:: Same Procedure performed:: Placement of 24 Cymraes right thoracostomy tube Surgeon:: David Woods MD Anesthesia: local Estimated blood loss (mL): 1 Operative findings:: 24 [place] thoracostomy tube anchored at 14 cm Operative note:: After informed consent was obtained the patient was maintained in the supine position. His right chest was prepped and draped in a sterile fashion. After infiltration with local anesthetic the subcutaneous tissue was dissected through the prior incision (dysfunctional 12 Cymraes thoracostomy tube removed earlier today) up and over the rib margin. The pleural space was entered. A 24 Cym[place]es thoracostomy tube was secured in position. The tube was anchored at 14 cm with 0 silk suture. The tube was secured to the Pleur-evac. Chest x-ray is pending. Condition: stable Disposition: no change Specimens:: None Complications:: No immediate. Chest x-ray pending.
--- NOTE | 2022-03-31 19:59 | PC.NURSE ---
Patient agreed to new chest tube placement. New chest tube placed and VS stable. Patient remained on vapotherm 15L 60% despite oxygen saturations above 90% during the day. No other complaints noted.
[2022-04-01] VITALS (9 sets, daily range): BP systolic 99–128; BP diastolic 61–77; PULSE 60–100; RESP 20–21; TEMP 36.3–37; O2SAT 93–98; BMI 17.0
--- NOTE | 2022-04-01 05:07 | PC.NURSE ---
pt has rested intermittently t/o shift, has remained on 15 L/60% vapotherm with O2 sats 96-97%, chest tube remains in place, pt educated on importance of not touching or pulling on tubing, verbalized understanding, did complain of pain at insertion site of chest tube one time this shift and was treated per DEC, no complaints of SOA
--- NOTE | 2022-04-01 06:00 | XR_ITS ---
PROCEDURE INFORMATION: Exam: XR Chest Exam date and time: 04/01/2022 5:25 AM Age: 71 years old Clinical indication: Condition or disease; Lung condition and disease; Pneumothorax; Additional info: Right ptx TECHNIQUE: Imaging protocol: Radiologic exam of the chest. Views: 1 view. COMPARISON: CR XR CHEST PORTABLE 03/31/2022 4:43 PM FINDINGS: Tubes, catheters and devices: Stable support tube and catheter. Lungs: Stable patchy right lower lung and left lower lung infiltrates. Pleural spaces: Stable irregular right lateral pleural thickening. Heart/Mediastinum: Unremarkable. No cardiomegaly. Vasculature: Stable vascular grafts. Bones/joints: Unremarkable. Soft tissues: Stable right lateral chest wall soft tissue emphysema. IMPRESSION: Essentially stable appearance compared to the previous day, with findings above.
[2022-04-01 06:54] LABS: Basophils % 0.8 % (0.1-2.0); Eosinophils # 0.1 K/mm3 (0.0-0.4); Hematocrit 25.8 % (42.0-52.0); Hemoglobin 8.5 g/dL (14.1-18.0); Lymphocytes # 0.5 K/mm3 (0.7-4.5); Lymphocytes % 23.2 % (10-50); Mean Corpuscular HGB Conc 32.9 g/dL (31.8-35.4); Mean Corpuscular Hemoglobin 27.3 pg (27.0-31.2); Mean Corpuscular Volume 83.2 fl (80-94); Mean Platelet Volume 7.8 fl (7.4-10.4); Monocytes # 0.3 K/mm3 (0.1-1.0); Monocytes % 16.1 % (1.7-9.3); Neutrophils # 1.1 K/mm3 (1.8-7.8); Neutrophils % 56.8 % (37.0-80.0); Platelet Count 278 K/mm3 (142-424); Red Cell Distribution Width 19.1 % (11.5-17.5)
[2022-04-01 07:00] LABS: Chloride 107 mmol/L (98-107); Potassium 4.2 mmoL/L (3.5-5.1); Sodium 132 mmol/L (136-145)
[2022-04-01 07:03] LABS: Anion Gap 4.2 mEq/L (5-15); Blood Urea Nitrogen 5 mg/dl (9-20); Calcium 7.6 mg/dl (8.4-10.2); Carbon Dioxide 25 mmol/L (22.0-30.0); Creatinine Clearance Estimated 54 mL/min (50-200); Estimated Glomerular Filt Rate 211 ml/min (>60); GFR (African American) 256 ML/MIN (>60); Glucose 98 mg/dl (74-100)
--- NOTE | 2022-04-01 07:10 | HMH.GSPN ---
Subjective Patient reports: no new complaints Progress Note: A&P (1) Pneumothorax Status: Acute Assessment and plan: Minuscule air leak currently on suction. He will remain on suction for now with continued follow-up chest films. (2) Lung cancer Status: Chronic (3) Pulmonary embolus Status: Chronic (4) Tension pneumothorax Status: Acute (5) Leukocytosis Status: Acute (6) PNA (pneumonia) Status: Acute Exam Vital signs and Labs for Last 24 Hours: Temp Pulse Resp BP Pulse Ox 97.4 F L 70 20 115/67 97 04/01/22 04:00 04/01/22 06:21 04/01/22 04:00 04/01/22 04:00 04/01/22 06:21 Laboratory Results - last 24 hr 03/31/22 06:00: WBC 4.1 L D, RBC 3.02 L, Hgb 8.5 L, Hct 25.6 L, MCV 84.7, MCH 28.2, MCHC 33.3, RDW 19.2 H, Plt Count 247, MPV 8.2, Neut % (Auto) 71.5, Lymph % (Auto) 10.4, [place] % (Auto) 14.7 H, Eos % (Auto) 3.0, Baso % (Auto) 0.4, Neut # (Auto) 2.9, Lymph # (Auto) 0.4 L, [place] # (Auto) 0.6, Eos # (Auto) 0.1, Baso # (Auto) 0.0 04/01/22 06:45: WBC 2.0 L D, RBC 3.10 L, Hgb 8.5 L, Hct 25.8 L, MCV 83.2, MCH 27.3, MCHC 32.9, RDW 19.1 H, Plt Count 278, MPV 7.8, Neut % (Auto) 56.8, Lymph % (Auto) 23.2, [place] % (Auto) 16.1 H, Eos % (Auto) 3.0, Baso % (Auto) 0.8, Neut # (Auto) 1.1 L, Lymph # (Auto) 0.5 L, [place] # (Auto) 0.3, Eos # (Auto) 0.1, Baso # (Auto) 0.0 04/01/22 06:45: Sodium 132 L, Potassium 4.2, Chloride 107, Carbon Dioxide 25, Anion Gap 4.2 L, BUN 5 L D, Creatinine 0.40 L, Estimated Creat Clear 54, Estimated GFR 211, Est GFR ( Amer) 256, Glucose 98, Calcium 7.6 L I & O for Last 24 hours: Intake & Output 03/29/22 03/30/22 03/31/22 04/01/22 11:59 11:59 11:59 11:59 Intake Total 960 / 960 1010 / 1010 1130 / 1130 540 / 540 Output Total 525 / 525 375 / 375 1700 / 1700 188 / 188 Balance 435 / 435 635 / 635 -570 / -570 352 / 352 Weight 119 lb 0.794 oz 122 lb 8 oz 126 lb - Constitutional no acute distress - *Routine Respiratory Exam Absent: respiratory distress Comments: Minuscule air leak (significant improvement versus prior evaluation) - *Routine Cardiovascular Exam Absent: tachycardia
--- NOTE | 2022-04-01 07:42 | PC.NURSE ---
assisted patient with adjusting in bed and reapplying oxygen.
--- NOTE | 2022-04-01 10:15 | HMH.ACPN2 ---
Internal Medicine - PN: Subj *Date: 04/01/22 *Time: 10:46 Interval history: 71-year-old male patient sitting up in bed resting quietly. Chest tube was removed yesterday morning and new 1 inserted last night. Patient tolerating without difficulty, there is a very small air leak. Exam Vital signs and Labs for Last 24 Hours: Temp Pulse Resp BP Pulse Ox 97.7 F 81 20 118/76 94 L 04/01/22 08:00 04/01/22 08:00 04/01/22 08:00 04/01/22 08:00 04/01/22 08:00 Laboratory Results - last 24 hr 04/01/22 06:45: WBC 2.0 L D, RBC 3.10 L, Hgb 8.5 L, Hct 25.8 L, MCV 83.2, MCH 27.3, MCHC 32.9, RDW 19.1 H, Plt Count 278, MPV 7.8, Neut % (Auto) 56.8, Lymph % (Auto) 23.2, [place] % (Auto) 16.1 H, Eos % (Auto) 3.0, Baso % (Auto) 0.8, Neut # (Auto) 1.1 L, Lymph # (Auto) 0.5 L, [place] # (Auto) 0.3, Eos # (Auto) 0.1, Baso # (Auto) 0.0 04/01/22 06:45: Sodium 132 L, Potassium 4.2, Chloride 107, Carbon Dioxide 25, Anion Gap 4.2 L, BUN 5 L D, Creatinine 0.40 L, Estimated Creat Clear 54, Estimated GFR 211, Est GFR ( Amer) 256, Glucose 98, Calcium 7.6 L I & O for Last 24 hours: Intake & Output 03/29/22 03/30/22 03/31/22 04/01/22 23:59 23:59 23:59 23:59 Intake Total 1080 / 1080 1490 / 1490 410 / 410 420 / 420 Output Total 445 / 445 1405 / 1705 598 / 598 90 / 90 Balance 635 / 635 85 / -215 -188 / -188 330 / 330 Weight 119 lb 0.794 oz 122 lb 8 oz 126 lb Microbiology Reports for the Last 24 Hours: Microbiology 03/30/22 11:36 Sputum - Expectorated Sputum Gram Stain - Final 03/30/22 11:36 Sputum - Expectorated Sputum Sputum Culture - Preliminary - Constitutional no acute distress, chronically ill appearing - *Routine HEENT Exam Head: Present: normocephalic Eye: Present: EOMI ENT: Present: mucous membranes moist - *Routine Neck Exam Present: trachea midline. Absent: tracheal deviation - *Routine Respiratory Exam Present: rhonchi, wheezes. Absent: accessory muscle use - *Routine Cardiovascular Exam Present: RRR - *Routine Abdominal Exam Present: soft, normoactive bowel sounds. Absent: tenderness, distended - *Routine Extremities Exam Present: full ROM, pulses intact. Absent: cyanosis, clubbing, edema - *Routine Skin Exam Present: dry, wounds. Absent: cyanosis, erythema Comments: Dressing to right chest clean/dry/intact Chest tube to suction - *Routine Neurological Exam Present: alert, oriented X3 - Routine Psychiatric Exam Present: normal affect, normal thought process Assessment and Plan (1) Pneumothorax Status: Acute Category: Medical Code(s): J93.9 - Pneumothorax, unspecified (2) Lung cancer Status: Chronic Qualifiers: Laterality: right Lung location: unspecified part of lung Qualified Code(s): C34.91 - Malignant neoplasm of unspecified part of right bronchus or lung Category: Medical Code(s): C34.90 - Malignant neoplasm of unspecified part of unspecified bronchus or lung (3) Pulmonary embolus Status: Chronic Qualifiers: Pulmonary embolism type: unspecified Chronicity: acute Acute cor pulmonale presence: without acute cor pulmonale Qualified Code(s): I26.99 - Other pulmonary embolism without acute cor pulmonale Category: Medical Code(s): I26.99 - Other pulmonary embolism without acute cor pulmonale (4) Tension pneumothorax Status: Acute Category: Medical Code(s): J93.0 - Spontaneous tension pneumothorax (5) Leukocytosis Status: Acute Category: Medical Code(s): D72.829 - Elevated white blood cell count, unspecified (6) PNA (pneumonia) Status: Acute Category: Medical Code(s): J18.9 - Pneumonia, unspecified organism - Assessment and plan all Dx Assessment and Plan for all problems:: Rounded with Dr. Bahena, all orders per Dr. Bahena: 1. Continue chest tube 2. General surgery following
--- NOTE | 2022-04-01 15:06 | PC.NURSE ---
rounds on patient made. no concerns or questions. attempted to assist patient with phone.
[2022-04-02] VITALS (13 sets, daily range): BP systolic 86–127; BP diastolic 44–75; PULSE 68–100; RESP 17–20; TEMP 36.8–37.7; O2SAT 88–94; BMI 16.9
--- NOTE | 2022-04-02 06:00 | XR_ITS ---
PROCEDURE INFORMATION: Exam: XR Chest Exam date and time: 04/02/2022 5:18 AM Age: 71 years old Clinical indication: Condition or disease and device placement; Chest tube; Lung condition and disease; Pneumothorax; Prior surgery; Additional info: Right ptx TECHNIQUE: Imaging protocol: Radiologic exam of the chest. Views: 1 view. COMPARISON: CR XR CHEST PORTABLE 04/01/2022 5:25 AM FINDINGS: Tubes, catheters and devices: Right chest tube is in similar position. Left-sided Port-A-Cath terminates in the region of the superior cavoatrial junction. Lungs: Stable patchy opacities in the right lung. Mildly improved opacities in the lower left lung. Pleural spaces: Similar right pleural thickening and/or pleural fluid. No pneumothorax is discernible radiographically. Heart/Mediastinum: Unremarkable. No cardiomegaly. Vasculature: Stents are seen within the SVC and bilateral brachiocephalic veins. Bones/joints: Osteopenia. Soft tissues: Similar small volume subcutaneous emphysema over the right hemithorax. IMPRESSION: 1. Similar patchy opacities in the right lung with adjacent pleural thickening and/or pleural fluid. No pneumothorax is discernible radiographically. 2. Improved left basilar airspace opacities.
--- NOTE | 2022-04-02 06:30 | HMH.GSPN ---
Subjective Patient reports: no new complaints Progress Note: A&P (1) Pneumothorax Status: Acute Assessment and plan: Chest x-ray reviewed. Await radiology reading. Possible placement of chest tube to waterseal. Anticipate very slow progress. (2) Lung cancer Status: Chronic (3) Pulmonary embolus Status: Chronic (4) Tension pneumothorax Status: Acute (5) Leukocytosis Status: Acute (6) PNA (pneumonia) Status: Acute Exam Vital signs and Labs for Last 24 Hours: Temp Pulse Resp BP Pulse Ox 98.9 F 82 20 107/66 L 93 L 04/02/22 04:00 04/02/22 04:00 04/02/22 04:00 04/02/22 04:00 04/02/22 04:00 Laboratory Results - last 24 hr 04/01/22 06:45: WBC 2.0 L D, RBC 3.10 L, Hgb 8.5 L, Hct 25.8 L, MCV 83.2, MCH 27.3, MCHC 32.9, RDW 19.1 H, Plt Count 278, MPV 7.8, Neut % (Auto) 56.8, Lymph % (Auto) 23.2, [place] % (Auto) 16.1 H, Eos % (Auto) 3.0, Baso % (Auto) 0.8, Neut # (Auto) 1.1 L, Lymph # (Auto) 0.5 L, [place] # (Auto) 0.3, Eos # (Auto) 0.1, Baso # (Auto) 0.0 04/01/22 06:45: Sodium 132 L, Potassium 4.2, Chloride 107, Carbon Dioxide 25, Anion Gap 4.2 L, BUN 5 L D, Creatinine 0.40 L, Estimated Creat Clear 54, Estimated GFR 211, Est GFR ( Amer) 256, Glucose 98, Calcium 7.6 L 04/01/22 16:42: Vancomycin Trough 7.0 I & O for Last 24 hours: Intake & Output 03/30/22 03/31/22 04/01/22 04/02/22 11:59 11:59 11:59 11:59 Intake Total 1010 / 1010 1130 / 1130 660 / 660 240 / 240 Output Total 375 / 375 1700 / 1700 188 / 188 460 / 460 Balance 635 / 635 -570 / -570 472 / 472 -220 / -220 Weight 119 lb 0.794 oz 122 lb 8 oz 126 lb 125 lb 6.171 oz Microbiology Reports for the Last 24 Hours: Microbiology 03/28/22 04:20 Blood Blood Culture - Final NO GROWTH AFTER 5 DAYS 03/28/22 04:20 Blood Blood Culture - Final NO GROWTH AFTER 5 DAYS 03/30/22 11:36 Sputum - Expectorated Sputum Gram Stain - Final 03/30/22 11:36 Sputum - Expectorated Sputum Sputum Culture - Preliminary - Routine Chest/Breast/Axilla Exam Comments: Chest tube site clean and intact. No evidence of any air leak.
--- NOTE | 2022-04-02 07:41 | PC.NURSE ---
adjusting patient Radha and I pulled patient up to bed to get ready to eat his breakfast. 0742 04/02/2022 -Alisson Swift SRNA
--- NOTE | 2022-04-02 07:47 | PC.NURSE ---
No acute changes. Pt tolerating vapotherm 15L, 40% well with sats >90%. PRN pain medication administered for chest tube insertion site pain. Pt states favorable results. Call light within reach.
--- NOTE | 2022-04-02 08:20 | HMH.ACPN2 ---
Internal Medicine - PN: Subj *Date: 04/02/22 *Time: 13:52 Interval history: 71-year-old male patient resting quietly in bed chest tube was reinserted Yesterday, chest x-ray today looks better. Patient still on Vapotherm and attempting to wean. Patient is sleeping in street close, encouraged to change into gown or pajamas patient refuses. Encourage patient to be up in chair for all meals and walking around in the room, engage in PT, set up higher in bed with head of bed elevated, and pulmonary toileting. Exam Vital signs and Labs for Last 24 Hours: Temp Pulse Resp BP Pulse Ox 98.9 F 81 20 107/66 L 92 L 04/02/22 04:00 04/02/22 06:34 04/02/22 04:00 04/02/22 04:00 04/02/22 06:34 Laboratory Results - last 24 hr 04/01/22 16:42: Vancomycin Trough 7.0 I & O for Last 24 hours: Intake & Output 03/30/22 03/31/22 04/01/22 04/02/22 23:59 23:59 23:59 23:59 Intake Total 1490 / 1490 410 / 410 660 / 660 Output Total 1405 / 1705 598 / 598 550 / 550 Balance 85 / -215 -188 / -188 110 / 110 Weight 125 lb 10.616 oz 122 lb 8 oz 126 lb 125 lb 6.171 oz Microbiology Reports for the Last 24 Hours: Microbiology 03/30/22 11:36 Sputum - Expectorated Sputum Gram Stain - Final 03/30/22 11:36 Sputum - Expectorated Sputum Sputum Culture - Final 03/28/22 04:20 Blood Blood Culture - Final NO GROWTH AFTER 5 DAYS 03/28/22 04:20 Blood Blood Culture - Final NO GROWTH AFTER 5 DAYS - Constitutional no acute distress, chronically ill appearing - *Routine HEENT Exam Head: Present: normocephalic Eye: Present: EOMI ENT: Present: mucous membranes moist - *Routine Neck Exam Present: trachea midline. Absent: tracheal deviation - *Routine Respiratory Exam Present: accessory muscle use, rhonchi, wheezes - *Routine Cardiovascular Exam Present: RRR - *Routine Abdominal Exam Present: soft, normoactive bowel sounds. Absent: tenderness, firm - *Routine Extremities Exam Present: full ROM, pulses intact. Absent: cyanosis, clubbing - *Routine Skin Exam Present: dry. Absent: cyanosis, erythema - *Routine Neurological Exam Present: alert, oriented X3 - Routine Psychiatric Exam Present: normal affect, normal thought process. Absent: auditory hallucinations Assessment and Plan (1) Pneumothorax Status: Acute Category: Medical Code(s): J93.9 - Pneumothorax, unspecified (2) Lung cancer Status: Chronic Qualifiers: Laterality: right Lung location: unspecified part of lung Qualified Code(s): C34.91 - Malignant neoplasm of unspecified part of right bronchus or lung Category: Medical Code(s): C34.90 - Malignant neoplasm of unspecified part of unspecified bronchus or lung (3) Pulmonary embolus Status: Chronic Qualifiers: Pulmonary embolism type: unspecified Chronicity: acute Acute cor pulmonale presence: without acute cor pulmonale Qualified Code(s): I26.99 - Other pulmonary embolism without acute cor pulmonale Category: Medical Code(s): I26.99 - Other pulmonary embolism without acute cor pulmonale (4) Tension pneumothorax Status: Acute Category: Medical Code(s): J93.0 - Spontaneous tension pneumothorax (5) Leukocytosis Status: Acute Category: Medical Code(s): D72.829 - Elevated white blood cell count, unspecified (6) PNA (pneumonia) Status: Acute Category: Medical Code(s): J18.9 - Pneumonia, unspecified organism - Assessment and plan all Dx Assessment and Plan for all problems:: Rounded with Dr. Daniels, all orders per Dr. Daniels: 1. Continue current medical regimen 2. Chest tube 3. General surgery following
--- NOTE | 2022-04-02 08:56 | PC.NURSE ---
assisted patient with getting comfortable in bed. warm blankets applied. patient has no concerns or questions at this time. resting now since getting up to bsc shortly before.
[2022-04-02 09:18] LABS: Chloride 105 mmol/L (98-107); Potassium 4.3 mmoL/L (3.5-5.1); Sodium 130 mmol/L (136-145)
[2022-04-02 09:21] LABS: Anion Gap 6.3 mEq/L (5-15); Blood Urea Nitrogen 7 mg/dl (9-20); Calcium 8.1 mg/dl (8.4-10.2); Carbon Dioxide 23 mmol/L (22.0-30.0); Creatinine Clearance Estimated 54 mL/min (50-200); Estimated Glomerular Filt Rate 211 ml/min (>60); GFR (African American) 256 ML/MIN (>60); Glucose 127 mg/dl (74-100)
[2022-04-02 09:23] LABS: Basophils % 0.9 % (0.1-2.0); Eosinophils # 0.1 K/mm3 (0.0-0.4); Eosinophils % 3.9 % (0.1-12.0); Hematocrit 28.2 % (42.0-52.0); Hemoglobin 9.2 g/dL (14.1-18.0); Lymphocytes # 0.7 K/mm3 (0.7-4.5); Lymphocytes % 33.7 % (10-50); Mean Corpuscular HGB Conc 32.6 g/dL (31.8-35.4); Mean Corpuscular Hemoglobin 27.5 pg (27.0-31.2); Mean Corpuscular Volume 84.5 fl (80-94); Mean Platelet Volume 7.8 fl (7.4-10.4); Monocytes # 0.4 K/mm3 (0.1-1.0); Neutrophils # 0.9 K/mm3 (1.8-7.8); Neutrophils % 43.4 % (37.0-80.0); Platelet Count 376 K/mm3 (142-424); Red Blood Count 3.34 M/mm3 (4.60-6.20); White Blood Count 2.1 K/mm3 (4.8-10.8)
--- NOTE | 2022-04-02 11:15 | PC.NURSE ---
Chest tube placed to water seal. Pt encouraged to get OOB at this time, pt refused. Pt also encouraged to at least use incentive spirometer, pt refused. Pt educated on the importance of all of these interventions and pt continue to refuse saying I just don't feel like it .
--- NOTE | 2022-04-02 17:17 | PC.NURSE ---
Pt has refused most interventions this shift. Pt has repeatedly been encouraged to get out of bed and into a chair, he refuses each time. Pt has refused supper this shift. Pt refused to change into a hospital gown, so he remains in street clothes. Pt has refused bathing or a shower. Pt has refused use of incentive spirometer. Pt required very thorough education on why he should have his lovenox shot this morning. He at first refusing saying I dont want this shot, then what was the point of this portacath? After explaining to the pt the need for this shot, d/t PE-pt finally agreed. @ 1600 pt had a low grade fever of 99.9. Pt given PRN tylenol per MAR. Pt refused to take multiple blankets off of himself saying I dont care if this fever gets worse, you're not taking them off. Room temp was lowered in room though. Also during rounds, it was noted that pt had not taken his 1300 scheduled gabapentins. Pt stated he was saving them for later . This RN then explained to pt that he had another dose scheduled at 2100, and that it could be dangerous taking both doses so closely together. (2) gabapentin capsules were wasted and witnessed by Jennie Mcnulty RN. No other acute changes or complaints.
--- NOTE | 2022-04-02 17:20 | PC.NURSE ---
patient has been provided with a new ice pitcher and trash has been taken out
[2022-04-03] VITALS (16 sets, daily range): BP systolic 96–131; BP diastolic 60–75; PULSE 80–101; RESP 18–22; TEMP 36.6–37.3; O2SAT 90–96; BMI 17.7
--- NOTE | 2022-04-03 03:07 | PC.NURSE ---
PT HAS BEEN A&OX4 T/O SHIFT. TOLERATING VAPOTHERM WELL, CONTINUING AT 15L/40%. PT HAS REMAINED IN BED, SLEEPING MAJORITY OF SHIFT. CHEST TUBE IN PLACE, CDI, AND TO WATER SEAL. PT HAS HAD NO C/O THUS FAR THIS SHIFT. VSS, WILL CONTINUE TO MONITOR.
--- NOTE | 2022-04-03 06:00 | XR_ITS ---
PROCEDURE INFORMATION: Exam: XR Chest Exam date and time: 04/03/2022 5:57 AM Age: 71 years old Clinical indication: Device placement; Chest tube; Additional info: Right ptx with chest tube TECHNIQUE: Imaging protocol: Radiologic exam of the chest. Views: 1 view. COMPARISON: CR XR CHEST PORTABLE 04/02/2022 5:18 AM FINDINGS: Tubes, catheters and devices: Diffuse airspace disease and volume loss is seen in the right hemithorax right-sided pleural tube is unchanged. Central venous catheter Lungs: Unremarkable. No consolidation. Pleural spaces: Unremarkable. No pleural effusion. No pneumothorax. Heart/Mediastinum: Unremarkable. No cardiomegaly. Vasculature: Bilateral stents are again noted. Bones/joints: Unremarkable. IMPRESSION: Stable exam.
[2022-04-03 07:33] LABS: Basophils % 1.7 % (0.1-2.0); Eosinophils % 1.4 % (0.1-12.0); Hematocrit 30.7 % (42.0-52.0); Hemoglobin 9.1 g/dL (14.1-18.0); Lymphocytes # 0.6 K/mm3 (0.7-4.5); Lymphocytes % 25.4 % (10-50); Mean Corpuscular HGB Conc 29.8 g/dL (31.8-35.4); Mean Corpuscular Hemoglobin 26.7 pg (27.0-31.2); Mean Corpuscular Volume 89.8 fl (80-94); Mean Platelet Volume 9.1 fl (7.4-10.4); Monocytes # 0.6 K/mm3 (0.1-1.0); Monocytes % 23.8 % (1.7-9.3); Neutrophils # 1.2 K/mm3 (1.8-7.8); Neutrophils % 47.8 % (37.0-80.0); Platelet Count 385 K/mm3 (142-424); Red Blood Count 3.42 M/mm3 (4.60-6.20); Red Cell Distribution Width 20.8 % (11.5-17.5); White Blood Count 2.5 K/mm3 (4.8-10.8)
--- NOTE | 2022-04-03 07:33 | HMH.GSPN ---
Subjective Narrative: Patient without any new complaints. Chest x-ray this morning is unchanged and stable with no obvious pneumothorax. Progress Note: A&P (1) Pneumothorax Status: Acute (2) Lung cancer Status: Chronic (3) Pulmonary embolus Status: Chronic (4) Tension pneumothorax Status: Acute (5) Leukocytosis Status: Acute (6) PNA (pneumonia) Status: Acute Assessment and Plan for All Diagnoses:: Place chest tube back on suction. He has relatively consistent air leak surprisingly this morning. Recommend transfer for definitive care for possible pleurodesis and/or VATS. Exam Vital signs and Labs for Last 24 Hours: Temp Pulse Resp BP Pulse Ox 98.2 F 88 18 112/70 93 L 04/03/22 03:50 04/03/22 06:19 04/03/22 03:50 04/03/22 03:50 04/03/22 06:19 Laboratory Results - last 24 hr 04/02/22 09:04: WBC 2.1 L, RBC 3.34 L, Hgb 9.2 L, Hct 28.2 L, MCV 84.5, MCH 27.5, MCHC 32.6, RDW 19.0 H, Plt Count 376 D, MPV 7.8, Neut % (Auto) 43.4, Lymph % (Auto) 33.7, [place] % (Auto) 18.0 H, Eos % (Auto) 3.9, Baso % (Auto) 0.9, Neut # (Auto) 0.9 L*, Lymph # (Auto) 0.7, [place] # (Auto) 0.4, Eos # (Auto) 0.1, Baso # (Auto) 0.0 04/02/22 09:04: Sodium 130 L, Potassium 4.3, Chloride 105, Carbon Dioxide 23, Anion Gap 6.3, BUN 7 L D, Creatinine 0.40 L, Estimated Creat Clear 54, Estimated GFR 211, Est GFR ( Amer) 256, Glucose 127 H, Calcium 8.1 L I & O for Last 24 hours: Intake & Output 03/31/22 04/01/22 04/02/22 04/03/22 11:59 11:59 11:59 11:59 Intake Total 1130 / 1130 660 / 660 720 / 720 830 / 830 Output Total 1700 / 1700 188 / 188 460 / 460 300 / 300 Balance -570 / -570 472 / 472 260 / 260 530 / 530 Weight 122 lb 8 oz 126 lb 125 lb 6.171 oz 131 lb Microbiology Reports for the Last 24 Hours: Microbiology 03/30/22 11:36 Sputum - Expectorated Sputum Gram Stain - Final 03/30/22 11:36 Sputum - Expectorated Sputum Sputum Culture - Final 03/28/22 04:20 Blood Blood Culture - Final NO GROWTH AFTER 5 DAYS 03/28/22 04:20 Blood Blood Culture - Final NO GROWTH AFTER 5 DAYS - Routine Chest/Breast/Axilla Exam Comments: Chest tube in place. Quite persistent air leak with talking.
[2022-04-03 07:37] LABS: MANUAL DIFFERENTIAL MANUAL DIFFERENTIAL (MANUAL DIFF)
[2022-04-03 07:43] LABS: Anion Gap 7.5 mEq/L (5-15); Blood Urea Nitrogen 10 mg/dl (9-20); Calcium 7.9 mg/dl (8.4-10.2); Carbon Dioxide 24 mmol/L (22.0-30.0); Chloride 103 mmol/L (98-107); Creatinine Clearance Estimated 56 mL/min (50-200); Estimated Glomerular Filt Rate 163 ml/min (>60); GFR (African American) 198 ML/MIN (>60); Glucose 89 mg/dl (74-100); Potassium 4.5 mmoL/L (3.5-5.1); Sodium 130 mmol/L (136-145)
[2022-04-03 09:23] LABS: Lymphocytes % 20 % (10-50); Monocytes % 32 % (2-9); Neutrophils % 44 % (42-76); Platelet Estimate Normal; Total Cells Counted 25
[2022-04-03 09:24] LABS: Hypochromasia 2+
[2022-04-03 09:26] LABS: Target Cells 1+
[2022-04-03 09:43] LABS: Poikilocytosis 1+
--- NOTE | 2022-04-03 09:56 | HMH.ACPN2 ---
Internal Medicine - PN: Subj *Date: 04/04/22 *Time: 02:08 Interval history: wbc low and bocanegra persistent air leak - no known recent chemo and has inc monocytes Exam Vital signs and Labs for Last 24 Hours: Temp Pulse Resp BP Pulse Ox 98.3 F 92 H 22 131/75 94 L 04/03/22 08:06 04/03/22 08:06 04/03/22 08:06 04/03/22 08:06 04/03/22 08:06 Laboratory Results - last 24 hr 04/03/22 06:55: WBC 2.5 L, RBC 3.42 L, Hgb 9.1 L, Hct 30.7 L, MCV 89.8, MCH 26.7 L, MCHC 29.8 L, RDW 20.8 H, Plt Count 385, MPV 9.1, Neut % (Auto) 47.8, Lymph % (Auto) 25.4, [place] % (Auto) 23.8 H D, Eos % (Auto) 1.4, Baso % (Auto) 1.7, Neut # (Auto) 1.2 L, Lymph # (Auto) 0.6 L, [place] # (Auto) 0.6, Eos # (Auto) 0.0, Baso # (Auto) 0.0, Total Counted 25, Neutrophils % (Manual) 44, Lymphocytes % (Manual) 20, Atypical Lymphs % 4.0, Monocytes % (Manual) 32 H, Platelet Estimate Normal, Hypochromasia 2+, Poikilocytosis 1+, Target Cells 1+ 04/03/22 06:55: Sodium 130 L, Potassium 4.5, Chloride 103, Carbon Dioxide 24, Anion Gap 7.5, BUN 10 D, Creatinine 0.50 L D, Estimated Creat Clear 56, Estimated GFR 163, Est GFR ( Amer) 198 D, Glucose 89 D, Calcium 7.9 L I & O for Last 24 hours: Intake & Output 03/31/22 04/01/22 04/02/22 04/03/22 11:59 11:59 11:59 11:59 Intake Total 1130 / 1130 660 / 660 720 / 720 830 / 830 Output Total 1700 / 1700 188 / 188 460 / 460 300 / 300 Balance -570 / -570 472 / 472 260 / 260 530 / 530 Weight 122 lb 8 oz 126 lb 125 lb 6.171 oz 131 lb Microbiology Reports for the Last 24 Hours: Microbiology 03/30/22 11:36 Sputum - Expectorated Sputum Gram Stain - Final 03/30/22 11:36 Sputum - Expectorated Sputum Sputum Culture - Final - Constitutional no acute distress, cachectic - *Routine HEENT Exam Head: Present: normocephalic Eye: Present: EOMI, PERRL ENT: Present: mucous membranes dry - *Routine Neck Exam Absent: JVD - *Routine Respiratory Exam Present: decreased breath sounds, other (rt chest tube ) - *Routine Cardiovascular Exam Present: RRR - *Routine Abdominal Exam Present: soft - *Routine Extremities Exam Absent: calf tenderness - *Routine Skin Exam Present: intact - *Routine Neurological Exam Present: alert, CN II-XII intact - Routine Psychiatric Exam Present: normal affect Assessment and Plan (1) Pneumothorax Status: Acute Category: Medical Code(s): J93.9 - Pneumothorax, unspecified (2) Lung cancer Status: Chronic Qualifiers: Laterality: right Lung location: unspecified part of lung Qualified Code(s): C34.91 - Malignant neoplasm of unspecified part of right bronchus or lung Category: Medical Code(s): C34.90 - Malignant neoplasm of unspecified part of unspecified bronchus or lung (3) Pulmonary embolus Status: Chronic Qualifiers: Pulmonary embolism type: unspecified Chronicity: acute Acute cor pulmonale presence: without acute cor pulmonale Qualified Code(s): I26.99 - Other pulmonary embolism without acute cor pulmonale Category: Medical Code(s): I26.99 - Other pulmonary embolism without acute cor pulmonale (4) Tension pneumothorax Status: Acute Category: Medical Code(s): J93.0 - Spontaneous tension pneumothorax (5) Leukocytosis Status: Acute Category: Medical Code(s): D72.829 - Elevated white blood cell count, unspecified (6) PNA (pneumonia) Status: Acute Category: Medical Code(s): J18.9 - Pneumonia, unspecified organism (7) Leukopenia Status: Acute Qualifiers: Leukopenia type: unspecified Qualified Code(s): D72.819 - Decreased white blood cell count, unspecified Category: Medical Code(s): D72.819 - Decreased white blood cell count, unspecified (8) Mass of right lung Status: Acute Category: Medical Code(s): R91.8 - Other nonspecific abnormal finding of lung field
--- NOTE | 2022-04-03 17:53 | PC.NURSE ---
contacted MD Garcia due to not voiding this shift. bladder scanned >600. instructed to anchor a amaya and obtain UA. pt tolerated well, 16 f to bedside drainage, 700 mL drained initially, UA sent.
[2022-04-03 18:10] LABS: Microscopic, Urine URINE MICROSCOPIC (MICROSCOPIC)
[2022-04-03 18:45] LABS: Appearance,Urine CLEAR (Clear); Bilirubin,Urine Negative (Negative); Blood, Urine Negative (Negative); Color,Urine YELLOW (Yellow); Glucose,Urine (UA) Negative (Negative); Ketones,Urine TRACE (Negative); Leukocyte Esterase,Urine Negative (Negative); Nitrate,Urine Negative (Negative); Protein,Urine Negative (Negative); Specific Gravity, Urine 1.025 (1.005-1.030); Urobilinogen,Urine 0.2 EU/dl (0.2)
[2022-04-03 18:48] LABS: Squamous Epithelial Cell,Urine Occasional #/hpf (0-5)
--- NOTE | 2022-04-03 19:02 | PC.NURSE ---
pt has periods of intermittent confusion. amaya anchored to bedside drainage. pt is unable to cough up secretions but continues to have a wet cough. pt is now on 4lnc and is tolerating it well. pt is now in a gown and i removed his pants and underwear. he has been more pleasant today.
[2022-04-04] VITALS (11 sets, daily range): BP systolic 84–123; BP diastolic 47–69; PULSE 60–90; RESP 16–18; TEMP 36.4–36.8; O2SAT 89–97; BMI 16.9
--- NOTE | 2022-04-04 04:14 | PC.NURSE ---
Pt alert and oriented x 3. Tolerating 5 L NC. Chest tube in place, c/d/i, to suction. No c/o SOA. See I&O for output. Medicated per DEC x 2 this shift for pain. Pt voiding per amaya cath. L port access is c/d/i. Monitoring tele and continuous pulse ox. Pt has slept in intervals. Call light in reach, bed alarm on. No needs or complaints voiced at this time.
--- NOTE | 2022-04-04 06:00 | XR_ITS ---
PROCEDURE INFORMATION: Exam: XR Chest Exam date and time: 04/04/2022 5:56 AM Age: 71 years old Clinical indication: Shortness of breath; Additional info: Right ptx, chest tube follow up TECHNIQUE: Imaging protocol: Radiologic exam of the chest. Views: 1 view. COMPARISON: CR XR CHEST PORTABLE 04/03/2022 5:57 AM FINDINGS: Tubes, catheters and devices: Right-sided pleural tube is noted. Lungs: Volume loss is seen in the right hemithorax. Patchy airspace disease is seen throughout the right chest. Pleural spaces: No definite pneumothorax noted. Heart/Mediastinum: Unremarkable. No cardiomegaly. Bones/joints: Unremarkable. IMPRESSION: Stable exam.
[2022-04-04 08:34] LABS: Anion Gap 8.4 mEq/L (5-15); Blood Urea Nitrogen 10 mg/dl (9-20); Calcium 7.5 mg/dl (8.4-10.2); Carbon Dioxide 24 mmol/L (22.0-30.0); Chloride 101 mmol/L (98-107); Creatinine Clearance Estimated 54 mL/min (50-200); Estimated Glomerular Filt Rate 211 ml/min (>60); GFR (African American) 256 ML/MIN (>60); Glucose 84 mg/dl (74-100); Potassium 4.4 mmoL/L (3.5-5.1); Sodium 129 mmol/L (136-145)
[2022-04-04 08:41] LABS: Basophils # 0.1 K/mm3 (0-0.2); Basophils % 1.2 % (0.1-2.0); Eosinophils # 0.1 K/mm3 (0.0-0.4); Eosinophils % 1.1 % (0.1-12.0); Hematocrit 26.5 % (42.0-52.0); Lymphocytes # 0.6 K/mm3 (0.7-4.5); Lymphocytes % 9.8 % (10-50); Mean Corpuscular HGB Conc 29.9 g/dL (31.8-35.4); Mean Corpuscular Hemoglobin 26.6 pg (27.0-31.2); Mean Platelet Volume 8.9 fl (7.4-10.4); Monocytes # 0.8 K/mm3 (0.1-1.0); Monocytes % 13.3 % (1.7-9.3); Neutrophils # 4.5 K/mm3 (1.8-7.8); Neutrophils % 74.6 % (37.0-80.0); Platelet Count 431 K/mm3 (142-424); Red Blood Count 2.98 M/mm3 (4.60-6.20); Red Cell Distribution Width 20.6 % (11.5-17.5)
[2022-04-04 09:03] LABS: Hemoglobin 7.9 g/dL (14.1-18.0)
--- NOTE | 2022-04-04 09:30 | P.PN_ITS ---
Subjective Patient reports: no new complaints Progress Note: A&P (1) Pneumothorax Status: Acute (2) Lung cancer Status: Chronic (3) Pulmonary embolus Status: Chronic (4) Tension pneumothorax Status: Acute (5) Leukocytosis Status: Acute (6) PNA (pneumonia) Status: Acute (7) Leukopenia Status: Acute (8) Mass of right lung Status: Acute Assessment and Plan for All Diagnoses:: Interestingly no evidence of any air leak whatsoever at this time. Chest x-ray a stable . Continue suction for now. If no air leak tomorrow may try a once again to place to waterseal. Exam Vital signs and Labs for Last 24 Hours: Temp Pulse Resp BP Pulse Ox 97.6 F 89 17 123/66 95 04/04/22 08:00 04/04/22 08:00 04/04/22 08:00 04/04/22 08:00 04/04/22 08:00 Laboratory Results - last 24 hr 04/03/22 06:55: Total Counted 25, Neutrophils % (Manual) 44, Lymphocytes % (Manual) 20, Atypical Lymphs % 4.0, Monocytes % (Manual) 32 H, Platelet Estimate Normal, Hypochromasia 2+, Poikilocytosis 1+, Target Cells 1+ 04/03/22 17:15: Urine Color Yellow, Urine Appearance Clear, Urine pH 6.0, Ur Specific [place] 1.025, Urine Protein Negative, Urine Glucose (UA) Negative, Urine Ketones Trace, Urine Blood Negative, Urine Nitrate Negative, Urine Bilirubin Negative, Urine Urobilinogen 0.2, Ur Leukocyte Esterase Negative, Urine WBC 5-10, Ur Squamous Epith Cells Occasional, Ur Renal Epithelial Cell 5- 10 04/04/22 06:55: WBC 6.0 D, RBC 2.98 L, Hgb 7.9 L D, Hct 26.5 L, MCV 89.0, MCH 26.6 L, MCHC 29.9 L, RDW 20.6 H, Plt Count 431 H, MPV 8.9, Neut % (Auto) 74.6, Lymph % (Auto) 9.8 L, [place] % (Auto) 13.3 H, Eos % (Auto) 1.1, Baso % (Auto) 1.2, Neut # (Auto) 4.5, Lymph # (Auto) 0.6 L, [place] # (Auto) 0.8, Eos # (Auto) 0.1, Baso # (Auto) 0.1 04/04/22 06:55: Sodium 129 L, Potassium 4.4, Chloride 101, Carbon Dioxide 24, Anion Gap 8.4, BUN 10, Creatinine 0.40 L, Estimated Creat Clear 54, Estimated GFR 211, Est GFR ( Amer) 256 D, Glucose 84, Calcium 7.5 L I & O for Last 24 hours: Intake & Output 04/01/22 04/02/22 04/03/22 04/04/22 11:59 11:59 11:59 11:59 Intake Total 660 / 660 720 / 720 830 / 830 480 / 480 Output Total 188 / 188 460 / 460 300 / 300 305 / 305 Balance 472 / 472 260 / 260 530 / 530 175 / 175 Weight 126 lb 125 lb 6.171 oz 131 lb 124 lb 14.4 oz - Routine Chest/Breast/Axilla Exam Comments: Chest tube site intact. No evidence of any air leak at this time on suction.
--- NOTE | 2022-04-04 11:06 | HMH.ACPN2 ---
Internal Medicine - PN: Subj *Date: 04/05/22 *Time: 07:38 Interval history: improved at this time and wbc improved - surg note reviewed Exam Vital signs and Labs for Last 24 Hours: Temp Pulse Resp BP Pulse Ox 97.6 F 89 17 123/66 95 04/04/22 08:00 04/04/22 08:00 04/04/22 08:00 04/04/22 08:00 04/04/22 08:00 Laboratory Results - last 24 hr 04/03/22 17:15: Urine Color Yellow, Urine Appearance Clear, Urine pH 6.0, Ur Specific [place] 1.025, Urine Protein Negative, Urine Glucose (UA) Negative, Urine Ketones Trace, Urine Blood Negative, Urine Nitrate Negative, Urine Bilirubin Negative, Urine Urobilinogen 0.2, Ur Leukocyte Esterase Negative, Urine WBC 5-10, Ur Squamous Epith Cells Occasional, Ur Renal Epithelial Cell 5-10 04/04/22 06:55: WBC 6.0 D, RBC 2.98 L, Hgb 7.9 L D, Hct 26.5 L, MCV 89.0, MCH 26.6 L, MCHC 29.9 L, RDW 20.6 H, Plt Count 431 H, MPV 8.9, Neut % (Auto) 74.6, Lymph % (Auto) 9.8 L, [place] % (Auto) 13.3 H, Eos % (Auto) 1.1, Baso % (Auto) 1.2, Neut # (Auto) 4.5, Lymph # (Auto) 0.6 L, [place] # (Auto) 0.8, Eos # (Auto) 0.1, Baso # (Auto) 0.1 04/04/22 06:55: Sodium 129 L, Potassium 4.4, Chloride 101, Carbon Dioxide 24, Anion Gap 8.4, BUN 10, Creatinine 0.40 L, Estimated Creat Clear 54, Estimated GFR 211, Est GFR ( Amer) 256 D, Glucose 84, Calcium 7.5 L I & O for Last 24 hours: Intake & Output 04/01/22 04/02/22 04/03/22 04/04/22 11:59 11:59 11:59 11:59 Intake Total 660 / 660 720 / 720 830 / 830 480 / 480 Output Total 188 / 188 460 / 460 300 / 300 305 / 305 Balance 472 / 472 260 / 260 530 / 530 175 / 175 Weight 126 lb 125 lb 6.171 oz 131 lb 124 lb 14.4 oz - Constitutional no acute distress, chronically ill appearing - *Routine HEENT Exam Head: Present: normocephalic Eye: Present: EOMI, PERRL ENT: Present: mucous membranes dry - *Routine Neck Exam Absent: JVD - *Routine Respiratory Exam Present: decreased breath sounds - *Routine Cardiovascular Exam Present: RRR - *Routine Abdominal Exam Present: soft - *Routine Extremities Exam Absent: calf tenderness - *Routine Skin Exam Present: intact - *Routine Neurological Exam Present: alert, CN II-XII intact - Routine Psychiatric Exam Present: cooperative Assessment and Plan (1) Pneumothorax Status: Acute Category: Medical Code(s): J93.9 - Pneumothorax, unspecified (2) Lung cancer Status: Chronic Qualifiers: Laterality: right Lung location: unspecified part of lung Qualified Code(s): C34.91 - Malignant neoplasm of unspecified part of right bronchus or lung Category: Medical Code(s): C34.90 - Malignant neoplasm of unspecified part of unspecified bronchus or lung (3) Pulmonary embolus Status: Chronic Qualifiers: Pulmonary embolism type: unspecified Chronicity: acute Acute cor pulmonale presence: without acute cor pulmonale Qualified Code(s): I26.99 - Other pulmonary embolism without acute cor pulmonale Category: Medical Code(s): I26.99 - Other pulmonary embolism without acute cor pulmonale (4) Tension pneumothorax Status: Acute Category: Medical Code(s): J93.0 - Spontaneous tension pneumothorax (5) Leukocytosis Status: Acute Category: Medical Code(s): D72.829 - Elevated white blood cell count, unspecified (6) PNA (pneumonia) Status: Acute Category: Medical Code(s): J18.9 - Pneumonia, unspecified organism (7) Leukopenia Status: Acute Qualifiers: Leukopenia type: unspecified Qualified Code(s): D72.819 - Decreased white blood cell count, unspecified Category: Medical Code(s): D72.819 - Decreased white blood cell count, unspecified (8) Mass of right lung Status: Acute Category: Medical Code(s): R91.8 - Other nonspecific abnormal finding of lung field (9) Hyponatremia Status: Acute Category: Medical Code(s): E87.1 - Hypo-osmolality and hyponatremia
--- NOTE | 2022-04-04 16:30 | PC.NURSE ---
pt refused to get up to chair. increased shortness of air with exertion. chest tube intact, suction set at 20. O2 sat remains stable on 4L nasal cannula. educated pt of importance of repositioning, pt often refuses. call light in reach, bed in lowest position and wheels locked.
[2022-04-05] VITALS (11 sets, daily range): BP systolic 92–147; BP diastolic 52–70; PULSE 70–122; RESP 16–20; TEMP 36.5–36.6; O2SAT 89–98; BMI 17.4
--- NOTE | 2022-04-05 05:11 | PC.NURSE ---
Pt alert and oriented x 3. Pt has been on 4 L NC, tolerating well - O2 sats >/=90%. R chest tube in place, c/d/i, to suction. Lung sounds diminished bilaterally. L accessed port site c/d/i. Pt had a low BP during the night - asymptomatic. Contacted credit administration manager provider. New orders received. IV fluids infusing per order. BP has improved at this time. Pt voiding per amaya cath. Turning q2hrs, foam dressing applied to bottom to help alleviate pressure. Heel protectors also applied. Call light in reach. No other needs voiced at this time. Bed alarm on.
[2022-04-05 06:20] LABS: Basophils # 0.1 K/mm3 (0-0.2); Basophils % 1.2 % (0.1-2.0); Eosinophils # 0.1 K/mm3 (0.0-0.4); Eosinophils % 1.2 % (0.1-12.0); Hemoglobin 8.1 g/dL (14.1-18.0); Lymphocytes # 0.7 K/mm3 (0.7-4.5); Lymphocytes % 8.2 % (10-50); Mean Corpuscular HGB Conc 28.7 g/dL (31.8-35.4); Mean Corpuscular Hemoglobin 25.7 pg (27.0-31.2); Mean Corpuscular Volume 89.6 fl (80-94); Mean Platelet Volume 8.9 fl (7.4-10.4); Monocytes # 0.5 K/mm3 (0.1-1.0); Monocytes % 5.7 % (1.7-9.3); Neutrophils # 7.4 K/mm3 (1.8-7.8); Neutrophils % 83.7 % (37.0-80.0); Platelet Count 541 K/mm3 (142-424); Red Blood Count 3.14 M/mm3 (4.60-6.20); Red Cell Distribution Width 20.5 % (11.5-17.5); White Blood Count 8.9 K/mm3 (4.8-10.8)
[2022-04-05 06:25] LABS: Anion Gap 7.2 mEq/L (5-15); Blood Urea Nitrogen 6 mg/dl (9-20); Calcium 7.3 mg/dl (8.4-10.2); Carbon Dioxide 23 mmol/L (22.0-30.0); Chloride 104 mmol/L (98-107); Creatinine Clearance Estimated 55 mL/min (50-200); Estimated Glomerular Filt Rate 211 ml/min (>60); GFR (African American) 256 ML/MIN (>60); Glucose 114 mg/dl (74-100); Potassium 4.2 mmoL/L (3.5-5.1); Sodium 130 mmol/L (136-145)
[2022-04-05 06:26] LABS: Hematocrit 28.1 % (42.0-52.0)
--- NOTE | 2022-04-05 09:30 | XR_ITS ---
PROCEDURE INFORMATION: Exam: XR Chest Exam date and time: 04/05/2022 9:51 AM Age: 71 years old Clinical indication: Shortness of breath; Additional info: Pneumothorax TECHNIQUE: Imaging protocol: Radiologic exam of the chest. Views: 1 view. COMPARISON: CR XR CHEST PORTABLE 04/04/2022 5:56 AM FINDINGS: Tubes, catheters and devices: Right chest tube is in similar position. Left-sided Port-A-Cath terminates in the region of the right atrium. Lungs: Similar to slightly worsened patchy opacities in the mid to upper right lung. Pleural spaces: Suspect a persistent loculated small right pneumothorax given lucency at the right lung apex. No substantial pleural effusion. Heart/Mediastinum: Unremarkable. No cardiomegaly. Vasculature: Stents project over the region of the SVC and bilateral brachiocephalic veins. Bones/joints: Unremarkable. Soft tissues: Small amount of subcutaneous emphysema over the right chest wall. IMPRESSION: 1. Suspect a persistent loculated small right pneumothorax given lucency at the right lung apex. CT could further evaluate. 2. Similar to slightly worsened patchy opacities in the mid to upper right lung.
--- NOTE | 2022-04-05 09:31 | HMH.ACPN2 ---
Internal Medicine - PN: Subj *Date: 04/06/22 *Time: 06:37 Interval history: seems better - more alert Exam Vital signs and Labs for Last 24 Hours: Temp Pulse Resp BP Pulse Ox 97.9 F 77 18 111/70 95 04/05/22 04:00 04/05/22 05:59 04/05/22 04:00 04/05/22 04:00 04/05/22 05:59 Laboratory Results - last 24 hr 04/05/22 05:54: WBC 8.9 D, RBC 3.14 L, Hgb 8.1 L, Hct 28.1 L, MCV 89.6, MCH 25.7 L, MCHC 28.7 L, RDW 20.5 H, Plt Count 541 H D, MPV 8.9, Neut % (Auto) 83.7 H, Lymph % (Auto) 8.2 L, [place] % (Auto) 5.7, Eos % (Auto) 1.2, Baso % (Auto) 1.2, Neut # (Auto) 7.4, Lymph # (Auto) 0.7, [place] # (Auto) 0.5, Eos # (Auto) 0.1, Baso # (Auto) 0.1 04/05/22 05:54: Sodium 130 L, Potassium 4.2, Chloride 104, Carbon Dioxide 23, Anion Gap 7.2, BUN 6 L D, Creatinine 0.40 L, Estimated Creat Clear 55, Estimated GFR 211, Est GFR ( Amer) 256, Glucose 114 H D, Calcium 7.3 L I & O for Last 24 hours: Intake & Output 04/02/22 04/03/22 04/04/22 04/05/22 11:59 11:59 11:59 11:59 Intake Total 720 / 720 830 / 830 540 / 540 1007 / 1007 Output Total 460 / 460 300 / 300 305 / 305 655 / 655 Balance 260 / 260 530 / 530 235 / 235 352 / 352 Weight 125 lb 6.171 oz 131 lb 124 lb 14.4 oz 128 lb 6.4 oz - Constitutional no acute distress, chronically ill appearing - *Routine HEENT Exam Head: Present: normocephalic Eye: Present: EOMI, PERRL ENT: Present: mucous membranes dry - *Routine Neck Exam Absent: JVD - *Routine Respiratory Exam Present: decreased breath sounds - *Routine Cardiovascular Exam Present: RRR, murmur, S4 - *Routine Abdominal Exam Present: soft - *Routine Extremities Exam Absent: calf tenderness - *Routine Skin Exam Present: intact - *Routine Neurological Exam Present: alert, oriented X3, CN II-XII intact - Routine Psychiatric Exam Present: cooperative Assessment and Plan (1) Pneumothorax Status: Acute Category: Medical Code(s): J93.9 - Pneumothorax, unspecified (2) Lung cancer Status: Chronic Qualifiers: Laterality: right Lung location: unspecified part of lung Qualified Code(s): C34.91 - Malignant neoplasm of unspecified part of right bronchus or lung Category: Medical Code(s): C34.90 - Malignant neoplasm of unspecified part of unspecified bronchus or lung (3) Pulmonary embolus Status: Chronic Qualifiers: Pulmonary embolism type: unspecified Chronicity: acute Acute cor pulmonale presence: without acute cor pulmonale Qualified Code(s): I26.99 - Other pulmonary embolism without acute cor pulmonale Category: Medical Code(s): I26.99 - Other pulmonary embolism without acute cor pulmonale (4) Tension pneumothorax Status: Acute Category: Medical Code(s): J93.0 - Spontaneous tension pneumothorax (5) Leukocytosis Status: Acute Category: Medical Code(s): D72.829 - Elevated white blood cell count, unspecified (6) PNA (pneumonia) Status: Acute Category: Medical Code(s): J18.9 - Pneumonia, unspecified organism (7) Leukopenia Status: Acute Qualifiers: Leukopenia type: unspecified Qualified Code(s): D72.819 - Decreased white blood cell count, unspecified Category: Medical Code(s): D72.819 - Decreased white blood cell count, unspecified (8) Mass of right lung Status: Acute Category: Medical Code(s): R91.8 - Other nonspecific abnormal finding of lung field (9) Hyponatremia Status: Acute Category: Medical Code(s): E87.1 - Hypo-osmolality and hyponatremia
--- NOTE | 2022-04-05 09:44 | HMH.GSPN ---
Subjective Patient reports: no new complaints Progress Note: A&P (1) Pneumothorax Status: Acute (2) Lung cancer Status: Chronic (3) Pulmonary embolus Status: Chronic (4) Tension pneumothorax Status: Acute (5) Leukocytosis Status: Acute (6) PNA (pneumonia) Status: Acute (7) Leukopenia Status: Acute (8) Mass of right lung Status: Acute (9) Hyponatremia Status: Acute Assessment and Plan for All Diagnoses:: Placed to [facility]. Chest x-ray ordered Exam Vital signs and Labs for Last 24 Hours: Temp Pulse Resp BP Pulse Ox 97.9 F 77 18 111/70 95 04/05/22 04:00 04/05/22 05:59 04/05/22 04:00 04/05/22 04:00 04/05/22 05:59 Laboratory Results - last 24 hr 04/05/22 05:54: WBC 8.9 D, RBC 3.14 L, Hgb 8.1 L, Hct 28.1 L, MCV 89.6, MCH 25.7 L, MCHC 28.7 L, RDW 20.5 H, Plt Count 541 H D, MPV 8.9, Neut % (Auto) 83.7 H, Lymph % (Auto) 8.2 L, [place] % (Auto) 5.7, Eos % (Auto) 1.2, Baso % (Auto) 1.2, Neut # (Auto) 7.4, Lymph # (Auto) 0.7, [place] # (Auto) 0.5, Eos # (Auto) 0.1, Baso # (Auto) 0.1 04/05/22 05:54: Sodium 130 L, Potassium 4.2, Chloride 104, Carbon Dioxide 23, Anion Gap 7.2, BUN 6 L D, Creatinine 0.40 L, Estimated Creat Clear 55, Estimated GFR 211, Est GFR ( Amer) 256, Glucose 114 H D, Calcium 7.3 L I & O for Last 24 hours: Intake & Output 04/02/22 04/03/22 04/04/22 04/05/22 11:59 11:59 11:59 11:59 Intake Total 720 / 720 830 / 830 540 / 540 1007 / 1007 Output Total 460 / 460 300 / 300 305 / 305 655 / 655 Balance 260 / 260 530 / 530 235 / 235 352 / 352 Weight 125 lb 6.171 oz 131 lb 124 lb 14.4 oz 128 lb 6.4 oz - Routine Chest/Breast/Axilla Exam Comments: Chest tube site intact. No evidence of any air leak
--- NOTE | 2022-04-05 17:52 | PC.NURSE ---
Addendum entered by Latrice Gomes RN 04/05/22 18:43: Chest tube remains on waterseal. Original Note: Pt has slept majority of the day. Pt remains on 4LNC. VSS. Pt has c/o rt sided pain x1 this shift, PRN pain meds given per DEC w/ effective results. No other acute changes.
[2022-04-06] VITALS (13 sets, daily range): BP systolic 107–122; BP diastolic 57–82; PULSE 71–100; RESP 16–20; TEMP 36.4–36.8; O2SAT 90–96; BMI 17.3
--- NOTE | 2022-04-06 04:41 | PC.NURSE ---
Pt has complained of pain 3 times this shift, medicated prn per dec. O2 sat 90-94% on 4L NC. Pt has been resistive to care throughout shift. Zepeda in place and draining. Chest tube in place, c/d/i, and to waterseal. Pt has remained in bed this shift, sleeping intermittently.
--- NOTE | 2022-04-06 06:00 | XR_ITS ---
PROCEDURE INFORMATION: Exam: XR Chest Exam date and time: 04/06/2022 5:59 AM Age: 71 years old Clinical indication: Condition or disease; Other: Chest tube, HX of pneumothorax. ; Additional info: Chest tube, pneumothorax TECHNIQUE: Imaging protocol: Radiologic exam of the chest. Views: 1 view. COMPARISON: CR XR CHEST PORTABLE 04/05/2022 9:51 AM FINDINGS: Tubes, catheters and devices: A right-sided pleural tube is noted. Lungs: Patchy extensive right-sided airspace disease with volume loss. Pleural spaces: No obvious pneumothorax is noted Heart/Mediastinum: Multiple mediastinal stents are present. Bones/joints: Unremarkable. IMPRESSION: Right-sided volume loss and extensive airspace disease. No pneumothorax noted on today's study
[2022-04-06 06:13] LABS: Basophils # 0.1 K/mm3 (0-0.2); Eosinophils # 0.1 K/mm3 (0.0-0.4); Eosinophils % 0.7 % (0.1-12.0); Hematocrit 24.4 % (42.0-52.0); Lymphocytes # 0.7 K/mm3 (0.7-4.5); Lymphocytes % 6.4 % (10-50); Mean Corpuscular HGB Conc 32.9 g/dL (31.8-35.4); Mean Corpuscular Hemoglobin 26.8 pg (27.0-31.2); Mean Corpuscular Volume 81.4 fl (80-94); Mean Platelet Volume 7.6 fl (7.4-10.4); Monocytes # 0.8 K/mm3 (0.1-1.0); Monocytes % 6.7 % (1.7-9.3); Neutrophils # 9.8 K/mm3 (1.8-7.8); Neutrophils % 85.1 % (37.0-80.0); Platelet Count 505 K/mm3 (142-424); Red Cell Distribution Width 19.3 % (11.5-17.5); White Blood Count 11.5 K/mm3 (4.8-10.8)
[2022-04-06 06:14] LABS: MANUAL DIFFERENTIAL MANUAL DIFFERENTIAL (MANUAL DIFF)
[2022-04-06 06:24] LABS: Anion Gap 3.8 mEq/L (5-15); Carbon Dioxide 24 mmol/L (22.0-30.0); Chloride 106 mmol/L (98-107); Creatinine Clearance Estimated 55 mL/min (50-200); Estimated Glomerular Filt Rate 211 ml/min (>60); GFR (African American) 256 ML/MIN (>60); Glucose 85 mg/dl (74-100); Potassium 3.8 mmoL/L (3.5-5.1); Sodium 130 mmol/L (136-145)
[2022-04-06 06:30] LABS: Blood Urea Nitrogen < 2 mg/dl (9-20)
[2022-04-06 06:47] LABS: Anisocytosis 1+; Hypochromasia 1+; Lymphocytes % 13 % (10-50); Monocytes % 5 % (2-9); Neutrophils % 82 % (42-76); Nucleated Red Blood Cells 2; Ovalocytes 1+; Platelet Estimate Moderate Increase; Total Cells Counted 100
--- NOTE | 2022-04-06 07:16 | HMH.GSPN ---
Subjective Patient reports: no new complaints Progress Note: A&P (1) Pneumothorax Status: Acute Assessment and plan: No obvious pneumothorax on morning chest film; however, definitive air leak with cough and deep breathing noted. Chest tube back to continuous suction Recommend transfer to a tertiary center with thoracic capabilities (2) Lung cancer Status: Chronic (3) Pulmonary embolus Status: Chronic (4) Tension pneumothorax Status: Acute (5) Leukocytosis Status: Acute (6) PNA (pneumonia) Status: Acute (7) Leukopenia Status: Acute (8) Mass of right lung Status: Acute (9) Hyponatremia Status: Acute Exam Vital signs and Labs for Last 24 Hours: Temp Pulse Resp BP Pulse Ox 98 F 73 17 120/71 92 L 04/06/22 04:00 04/06/22 06:15 04/06/22 04:00 04/06/22 04:00 04/06/22 06:15 Laboratory Results - last 24 hr 04/06/22 06:00: WBC 11.5 H D, RBC 3.00 L, Hgb 8.0 L, Hct 24.4 L, MCV 81.4, MCH 26.8 L, MCHC 32.9, RDW 19.3 H, Plt Count 505 H, MPV 7.6, Neut % (Auto) 85.1 H, Lymph % (Auto) 6.4 L, [place] % (Auto) 6.7, Eos % (Auto) 0.7, Baso % (Auto) 1.0, Neut # (Auto) 9.8 H, Lymph # (Auto) 0.7, [place] # (Auto) 0.8, Eos # (Auto) 0.1, Baso # (Auto) 0.1, Total Counted 100, Neutrophils % (Manual) 82 H, Lymphocytes % (Manual) 13, Monocytes % (Manual) 5, Nucleated RBCs 2, Platelet Estimate Moderate increase, Hypochromasia 1+, Anisocytosis 1+, Ovalocytes 1+ 04/06/22 06:00: Sodium 130 L, Potassium 3.8, Chloride 106, Carbon Dioxide 24, Anion Gap 3.8 L, BUN < 2 L D, Creatinine 0.40 L, Estimated Creat Clear 55, Estimated GFR 211, Est GFR ( Amer) 256, Glucose 85, Calcium 7.0 L I & O for Last 24 hours: Intake & Output 07/11/2404/04/22 04/05/22 04/06/22 11:59 11:59 11:59 11:59 Intake Total 830 / 830 540 / 540 1007 / 1007 4077 / 4077 Output Total 300 / 300 305 / 305 705 / 705 905 / 905 Balance 530 / 530 235 / 235 302 / 302 3172 / 3172 Weight 131 lb 124 lb 14.4 oz 128 lb 6.4 oz 128 lb 1.6 oz Radiology Reports for the Last 24 Hours: No definitive pneumothorax; however, films are somewhat difficult to evaluate secondary to airspace disease and volume loss on the right. - Constitutional no acute distress - *Routine Respiratory Exam Absent: respiratory distress Comments: Definitive and persistent air leak with cough and deep breathing
[2022-04-06 08:18] LABS: Peripheral Smear Review Scanned Result
--- NOTE | 2022-04-06 11:04 | HMH.DCSUM ---
General - General Admission date:: 03/28/22 Discharge date: 04/06/22 HPI HPI: Patient is a 71-year-old white male, admitted to our service from the emergency room after presenting with complaints of cough and dyspnea. He has a history of lung cancer, receives chemo at [facility]. Was diagnosed about a year ago. Cannot relay specifics of the type of cancer or his regimen. In the course of his work-up was found to have a large right-sided tension pneumothorax. A chest tube was subsequently placed on the right side. CTA chest is as follows IMPRESSION: 1. A single small pulmonary embolism is present in a segmental branch of the right lower lobe. 2. A large right-sided pneumothorax is noted associated which shift of the mediastinum to the left. 3. Large right infiltrating hilar mass as previously described. Postobstructive changes to the right lower and right upper lobes and right middle lobes are noted. 4. Stents are present within the subclavian veins and superior vena cava, no flow is identified within these vessels however. 5. Multiple new nodules are seen throughout the left lung consistent with probable metastatic disease. 6. Coronary atherosclerosis. Patient's regimen includes eliquis Hospital Course Hospital Course: Patient is a 71-year-old white male, admitted to our service from the emergency room after presenting with complaints of cough and dyspnea. He has a history of lung cancer, receives chemo at [facility]. Was diagnosed about a year ago. Cannot relay specifics of the type of cancer or his regimen. In the course of his work-up was found to have a large right-sided tension pneumothorax. A chest tube was subsequently placed on the right side. CTA chest is as follows IMPRESSION: 1. A single small pulmonary embolism is present in a segmental branch of the right lower lobe. 2. A large right-sided pneumothorax is noted associated which shift of the mediastinum to the left. 3. Large right infiltrating hilar mass as previously described. Postobstructive changes to the right lower and right upper lobes and right middle lobes are noted. 4. Stents are present within the subclavian veins and superior vena cava, no flow is identified within these vessels however. 5. Multiple new nodules are seen throughout the left lung consistent with probable metastatic disease. 6. Coronary atherosclerosis. Patient's regimen includes eliquis 03/31/2022 General surgery removed chest tube 03/31/2022 General surgery: After informed consent was obtained the patient was maintained in the supine position. His right chest was prepped and draped in a sterile fashion. After infiltration with local anesthetic the subcutaneous tissue was dissected through the prior incision (dysfunctional 12 [place] thoracostomy tube removed earlier today) up and over the rib margin. The pleural space was entered. A 24 [place] thoracostomy tube was secured in position. The tube was anchored at 14 cm with 0 silk suture. The tube was secured to the Pleur-evac. Chest x-ray is pending. 04/06/22 General Surgery seen and recommends: No obvious pneumothorax on morning chest film; however, definitive air leak with cough and deep breathing noted. Chest tube back to continuous suction Recommend transfer to a tertiary center with thoracic capabilities Attempted transfer to: [facility]: Spoke with Dr. Waterman patient was accepted, awaiting open bed [facility]: In [facility], is on waiting list they will call with bed [facility]: Dr. Gonzalez accepted patient, they are waiting for an open bed [facility]: Dr. Gustafson states unable to take patient at this time 71-year-old male patient sitting up in bed resting quietly, he denies any shortness of breath during or chest pain. He does have a loose nonproductive cough. Oxygen saturation 94%
--- NOTE | 2022-04-06 13:29 | DIET.NUTRFU ---
RD reviewed meal intake, 04/05 intake was poor only 25% at each f them. Today for breakfast was really slight improvement at 25%. He is also ordered ensure BID and IVF. Will continue to follow
--- NOTE | 2022-04-06 18:49 | PC.NURSE ---
Pt alert and oriented with episodes of confusion. Chest tube in place and hooked to suction, very minimal drainage, with no apparent issues. Pt did have a bm this shift. Zepeda in place and draining dark yellow urine. VSS. CB in reach. Pt has refused to bath and turn this shift as much as needed. Educated on purpose of repositioning and nutrition, pt stated you don't know what the word no means, do you? . Dsg changed to coccyx for prevention. Awaiting further update for transfer to another hospital.
--- NOTE | 2022-04-06 22:44 | PC.NURSE ---
[id number] attempted to call report to [facility] at this time, stated they would have to call back [phone] daughter notified of pending transfer to [address]
--- NOTE | 2022-04-06 23:36 | PC.NURSE ---
[id number] attempted to call report again to [facility], report given to Karthikeyan HUNT at this time
--- NOTE | 2022-04-07 00:09 | PC.NURSE ---
patient left floor with EMS @ this [facility].
== END 2022-04-07 00:09 | disposition short-term general hospital (02) | DRG 199 ==
LOC: ER 07:11 → 2ND 14:11
PROVIDERS: Emergency Medicine; Internal Medicine Adolescent Medicine; Nurse Practitioner Family; Admitting Provider Family Medicine; Emergency Provider Emergency Medicine; PCP Internal Medicine; Visit Provider Family Medicine
DX: J93.0 Spontaneous tension pneumothorax (principal); I26.99 Other pulmonary embolism without acute cor pulmonale; J96.21 Acute and chronic respiratory failure with hypoxia; J18.9 Pneumonia, unspecified organism; E87.1 Hypo-osmolality and hyponatremia; R64 Cachexia; Z68.1 Body mass index [BMI] 19.9 or less, adult; C34.91 Malignant neoplasm of unspecified part of right bronchus or lung; E46 Unspecified protein-calorie malnutrition
CPT/HCPCS: 32556; 36415; 71045; 71275; 80048; 80053; 80202; 81001; 82803; 83605; 83735; 83880; 84145; 84484; 85007; 85025; 85610; 86140; 87040; 87070; 87205; 93005; 94640; 94760; 94761; 99291; C9803; G0238; J0692; J2405; J2543; J3370; Q9967; U0003; U0005